=== PATIENT | female | born 1985 | race Caucasian/White ===

== ENCOUNTER → 2018-08-22 17:12 | Outpatient (CLI) | payer OTHER, MEDICAID, SELFPAY ==
--- NOTE | 2018-08-22 | DI.RAD.S_ITS ---
PROCEDURE: XR FOOT LT MIN 3V INDICATIONS: BRUISING, SWELLING S/P FALL TECHNIQUE: 3 views of the foot were acquired. COMPARISON: None. FINDINGS: Bones: No fractures or dislocations. No suspicious bony lesions. Soft tissues: No tibiotalar joint effusion. Achilles tendon appears normal. There is mild dorsal soft tissue swelling. IMPRESSION: No acute radiographic findings. If pain persists, followup imaging in 5-7 days is recommended to exclude occult fracture. Dictated by: Joann Hernandez M.D. on 08/23/2018 at 9:21 Approved by: Joann Hernandez M.D. on 08/23/2018 at 9:22
--- NOTE | 2018-08-22 | DI.RAD.S_ITS ---
PROCEDURE: XR KNEE LT 3V INDICATIONS: BRUISING, SWELLING S/P FALL TECHNIQUE: 3 views of the knee were acquired. COMPARISON: None. FINDINGS: Bones: No fractures or dislocations. No suspicious bony lesions. Soft tissues: No joint effusion. No suspicious soft tissue calcifications. IMPRESSION: No acute radiographic findings. If pain persists, followup imaging in 5-7 days is recommended to exclude occult fracture. Dictated by: Joann Hernandez M.D. on 08/23/2018 at 9:24 Approved by: Joann Hernandez M.D. on 08/23/2018 at 9:24
--- NOTE | 2018-08-22 | DI.RAD.S_ITS ---
PROCEDURE: XR KNEE RT 3V INDICATIONS: BRUISING, SWELLING S/P FALL TECHNIQUE: 3 views of the knee were acquired. COMPARISON: None. FINDINGS: Bones: No fractures or dislocations. No suspicious bony lesions. Soft tissues: No joint effusion. No suspicious soft tissue calcifications. IMPRESSION: No acute radiographic findings. If pain persists, followup imaging in 5-7 days is recommended to exclude occult fracture. Dictated by: Joann Hernandez M.D. on 08/23/2018 at 9:24 Approved by: Joann Hernandez M.D. on 08/23/2018 at 9:25
--- NOTE | 2018-08-22 | DI.RAD.S_ITS ---
PROCEDURE: XR FOOT RT MIN 3V INDICATIONS: BRUISING, SWELLING S/P FALL TECHNIQUE: 3 views of the foot were acquired. COMPARISON: None. FINDINGS: Bones: No fractures or dislocations. No suspicious bony lesions. There is a healed right fifth metacarpal fracture. Soft tissues: No tibiotalar joint effusion. Achilles tendon appears normal. IMPRESSION: No acute radiographic findings. If pain persists, followup imaging in 5-7 days is recommended to exclude occult fracture. Dictated by: Joann Hernandez M.D. on 08/23/2018 at 9:22 Approved by: Joann Hernandez M.D. on 08/23/2018 at 9:23
--- NOTE | 2018-08-22 | DI.RAD.S_ITS ---
PROCEDURE: XR HAND LT MIN 3V INDICATIONS: BRUISING, SWELLING S/P FALL TECHNIQUE: 3 views of the hand(s) acquired. COMPARISON: None. FINDINGS: Bones: No fractures or dislocations. Carpal bones are normally aligned. A small cystic lucency is present within the distal third metacarpal with a defined sclerotic margin suggesting a small bone cyst. Soft tissues: No suspicious soft tissue calcifications. IMPRESSION: No acute radiographic findings. If pain persists, followup imaging in 5-7 days is recommended to exclude occult fracture. Dictated by: Joann Hernandez M.D. on 08/23/2018 at 9:23 Approved by: Joann Hernandez M.D. on 08/23/2018 at 9:24
--- NOTE | 2018-08-22 | DI.RAD.S_ITS ---
PROCEDURE: XR TIBIA FUBULA RT 2V INDICATIONS: BRUISING SWELLING S/P FALL TECHNIQUE: 2 views of the tibia and fibula were acquired. COMPARISON: None. FINDINGS: Bones: No fractures or dislocations. No suspicious bony lesions. Soft tissues: No suspicious soft tissue calcifications or masses. IMPRESSION: No acute radiographic findings. If pain persists, followup imaging in 5-7 days is recommended to exclude occult fracture. Dictated by: Joann Hernandez M.D. on 08/23/2018 at 9:13 Approved by: Joann Hernandez M.D. on 08/23/2018 at 9:21
== END ==
PROVIDERS: Visit Provider Nurse Practitioner Family
DX: S80.11XA Contusion of right lower leg, initial encounter (principal); S60.222A Contusion of left hand, initial encounter; S90.32XA Contusion of left foot, initial encounter; S90.31XA Contusion of right foot, initial encounter; S80.02XA Contusion of left knee, initial encounter; W19.XXXA Unspecified fall, initial encounter; R60.9 Edema, unspecified
CPT/HCPCS: 73130; 73562; 73590; 73630

== ENCOUNTER → 2018-10-25 06:43 | Outpatient (CLI) | payer OTHER, SELFPAY ==
--- NOTE | 2018-10-25 | DI.MRI.S_ITS ---
PROCEDURE: MR KNEE RT WO CON INDICATIONS: Right knee pain an instability TECHNIQUE: Noncontrast sagittal PD fast spin echo and T2 fast spin echo with fat saturation, sagittal 3-D FLASH with fat saturation; coronal T1 spin echo and PD fast spin echo with fat saturation, and axial PD fast spin echo with fat saturation through the knee. COMPARISON: None. FINDINGS: Image quality: Excellent. Menisci: There is no evidence of focal medial meniscal tear. Signal abnormality is seen in anterior horn of lateral meniscus extending to inferior articulating surface suggestive of focal oblique tear. The meniscal root ligaments appear intact. Cruciate ligaments: There is nonvisualization of normal anterior cruciate ligament fibers traversing its expected course suggestive of age indeterminate ACL rupture. The posterior cruciate ligament is intact. Medial structures: The medial collateral ligament appears intact. The posterior oblique ligament, semimembranosus tendon insertions, oblique popliteal ligament, and meniscocapsular junction appear intact. Visualized portions of the pes anserinus tendons appear normal. No abnormal bursal fluid. Lateral structures: The lateral collateral ligament, long and short heads of the biceps femoris tendon appear intact. The popliteus tendon appears normal; the popliteofibular ligament appears intact. The posterosuperior and anteroinferior popliteomeniscal fascicles appear intact. The arcuate and fabellofibular ligaments appear intact, on either side of the lateral inferior geniculate artery. Iliotibial band appears normal. Anterior structures: The quadriceps and patellar tendons appear intact. Patellar alignment is normal. No femoral trochlear dysplasia or ventral trochlear prominence. No edema in the infrapatellar fat pad. Bones and cartilage: No bone marrow contusions or fractures. The cartilage of the medial and lateral femorotibial compartments, as well as the patellofemoral compartment, appears normal in thickness. Joint space: There is trace amount of joint fluid, no gross loose body.. No Galeas's cyst. Normal appearing synovial plicae are incidentally noted. IMPRESSION: 1. Suggestion of focal oblique tear involving anterior horn of lateral meniscus extending to inferior articulating surface. No evidence of focal medial meniscal tear. 2. Age-indeterminate and ACL rupture. PCL is intact. 3. No marrow edema. No fracture or dislocation. Trace amount of joint effusion. Dictated by: Jas Giang M.D. on 10/25/2018 at 8:34 Approved by: Jas Giang M.D. on 10/25/2018 at 8:39
--- NOTE | 2018-10-25 | DI.MRI.S_ITS ---
PROCEDURE: MR KNEE LT WO CON INDICATIONS: LEFT KNEE PAIN POST FALL TECHNIQUE: Noncontrast sagittal PD fast spin echo and T2 fast spin echo with fat saturation, sagittal 3-D FLASH with fat saturation; coronal T1 spin echo and PD fast spin echo with fat saturation, and axial PD fast spin echo with fat saturation through the knee. COMPARISON: Located Within [facility], MR, MR KNEE RT WO CON, 10/25/2018, 7:03. FINDINGS: Image quality: Excellent. Menisci: The medial and lateral menisci demonstrate normal morphology and internal signal. The meniscal root ligaments appear intact. Cruciate ligaments: The anterior and posterior cruciate ligaments appear intact. Medial structures: The medial collateral ligament appears intact. The posterior oblique ligament, semimembranosus tendon insertions, oblique popliteal ligament, and meniscocapsular junction appear intact. Visualized portions of the pes anserinus tendons appear normal. No abnormal bursal fluid. Lateral structures: The lateral collateral ligament, long and short heads of the biceps femoris tendon appear intact. The popliteus tendon appears normal; the popliteofibular ligament appears intact. The posterosuperior and anteroinferior popliteomeniscal fascicles appear intact. The arcuate and fabellofibular ligaments appear intact, on either side of the lateral inferior geniculate artery. Iliotibial band appears normal. Anterior structures: The quadriceps and patellar tendons appear intact. Patellar alignment is normal. No femoral trochlear dysplasia or ventral trochlear prominence. No edema in the infrapatellar fat pad. Bones and cartilage: No bone marrow contusions or fractures. The cartilage of the medial and lateral femorotibial compartments, as well as the patellofemoral compartment, appears normal in thickness. Joint space: There is physiologic knee joint fluid. No Galeas's cyst. Normal appearing synovial plicae are incidentally noted. IMPRESSION: Cruciate ligaments are intact. No evidence of focal meniscal tear. No evidence of internal derangement. Dictated by: Jas Giang M.D. on 10/25/2018 at 8:39 Approved by: Jas Giang M.D. on 10/25/2018 at 8:40
== END ==
PROVIDERS: PCP Nurse Practitioner Family; Visit Provider Internal Medicine
DX: M25.561 Pain in right knee (principal); M25.562 Pain in left knee
CPT/HCPCS: 73721

== ENCOUNTER → 2018-11-08 07:30 | Outpatient (CLI) | payer OTHER, MEDICAID, SELFPAY ==
--- NOTE | 2018-11-08 | DI.MG.S_ITS ---
BILATERAL DIGITAL SCREENING MAMMOGRAM 3D/2D WITH CAD: 11/08/2018 CLINICAL: Baseline exam. Family history of breast cancer. No prior exams were available for comparison. The tissue of both breasts is heterogeneously dense. This may lower the sensitivity of mammography. Current study was also evaluated with a Computer Aided Detection (CAD) system. No significant masses, calcifications, or other findings are seen in either breast. IMPRESSION: NEGATIVE There is no mammographic evidence of malignancy. A 1 year screening mammogram is recommended. This exam was interpreted at Station ID: [id number]. NOTE: For mammograms, a report in lay terms will be sent to the patient. Approximately 15% of breast malignancies will not be visualized mammographically. In the management of a palpable breast mass, a negative mammogram must not discourage biopsy of a clinically suspicious lesion. Electronically Signed By: Joann mendosa/elida:11/08/2018 08:50:43 copy to: [facility] letter sent: Normal Exam ACR BI-RADS Category 1: Negative 3341F
== END ==
PROVIDERS: PCP Nurse Practitioner Family; Visit Provider Nurse Practitioner Family
DX: Z12.31 Encounter for screening mammogram for malignant neoplasm of breast (principal); Z80.3 Family history of malignant neoplasm of breast
CPT/HCPCS: 77063; 77067

== ENCOUNTER 2019-03-19 10:51 | Day surgery (SDC) | payer OTHER, MEDICAID, SELFPAY ==
[2019-03-06 07:25] VITALS: BMI 38.5
[2019-03-19] VITALS (16 sets, daily range): BP systolic 103–145; BP diastolic 69–96; PULSE 80–106; RESP 11–16; TEMP 36.1–37.2; O2SAT 91–99; BMI 37.6
[2019-03-19] MEDS: LACTATED RINGERS 1,000 ML 42 ML IV ×2 (11:30→16:00)
--- NOTE | 2019-03-19 11:55 | PM.PREOP ---
Pre-operative Note Interval Note History & Physical reviewed/Exam performed by Physician: Yes Changes to H&P: No
[2019-03-19] MEDS: MIDAZOLAM 2 MG/2 ML VIAL IV (12:33)
[2019-03-19] MEDS: CEFAZOLIN 2 GM/100 ML FROZ.PIGGY IV (13:00)
--- NOTE | 2019-03-19 13:00 | SUR.PREOP ---
Block start time 1233 . Monitoring initiated and maintained throughout procedure. Oxygen and medications given per anesthesiologist instructions. Patient remained stable throughout procedure, no adverse reactions noted. Block end time 1244.
--- NOTE | 2019-03-19 13:14 | PM.PROC.1 ---
Procedures Date/Time Date of procedure: 03/19/19 Time of procedure: 13:00 Nerve Block Time out performed: Yes Local anesthetic used: lidocaine 1% (w/ epi 5mL + 15mL 0.5pivacaine) Location of anesthetic used: femoral nerve Amount of anesthesia used (mL): 20 Nerve blocks: femoral Procedure successful: Yes Patient tolerated procedure: well Complications: none Additional comments: Femoral Nerve block for post operative pain management. R/B discussed. Site marked. Consent verified/signed. Standard ASA monitors. NC O2. Chloroprep. Sterile technique. Femoral A/V/N identified at inguinal crease with US. Lidocaine skin wheal. 100mm x 21g Pajunk needle advanced with in-plane US guidance. Negative aspiration. LA injected lateral to femoral artery. Negative aspiration throughout. No pain, no paresthesia with injection. VSS. Tolerated well. To OR.
--- NOTE | 2019-03-19 13:23 | P.PCN_ITS ---
Procedures Date/Time Date of procedure: 03/19/19 Time of procedure: 13:00 Nerve Block Time out performed: Yes Local anesthetic used: lidocaine 1% (w/ epi 5mL + 15mL 0.5opivacaine) Location of anesthetic used: femoral nerve Amount of anesthesia used (mL): 20 Nerve blocks: femoral Procedure successful: Yes Patient tolerated procedure: well Complications: none Additional comments: Femoral Nerve block for post operative pain management. R/B discussed. Site marked. Consent verified/signed. Standard ASA monitors. NC O2. Chloroprep. Sterile technique. Femoral A/V/N identified at inguinal crease with US. Lidocaine skin wheal. 100mm x 21g Pajunk needle advanced with in-plane US guidance. Negative aspiration. LA injected lateral to femoral artery. Negative aspiration throughout. No pain, no paresthesia with injection. VSS. Tolerated well. To OR.
--- NOTE | 2019-03-19 13:57 | SUR.OPER ---
Supine on padded OR bed, head on pillow, arms secured on padded arm boards at <90 degrees abduction, knees at break of table to allow for table to drop down, operative leg under control of surgeon, lateral stress post at tourniquet, safety belt at waist.
[2019-03-19] MEDS: BUPIVACAINE 0.5% (PF) VIAL 30 ML INJ (14:03)
[2019-03-19] MEDS: MORPHINE 4 MG/ML INJ INJ (14:51)
[2019-03-19] MEDS: fentaNYL 100 MCG/2 ML INJ IV ×3 (15:23→16:17)
--- NOTE | 2019-03-19 15:24 | P.OP_ITS ---
Operative Date/Time/Diagnoses Date of procedure: 03/19/19 Time of procedure: 15:00 Pre-op diagnosis: Right knee anterior cruciate ligament rupture Post-op diagnosis: same Procedure & Clinicians Procedure: Right knee anterior cruciate ligament reconstruction with hamstring autograft Same procedure as scheduled: Yes Indications: The patient is a 34-year-old active woman who suffered an ACL rupture during athletics. She would like to return to her athletics and has decided to undergo an ACL reconstruction to allow that to happen. The risks benefits and alternatives were discussed with her at length. Risks discussed included but were not limited to: Graft rerupture, need for revision, inability to relieve symptoms, nerve damage, infection, deep venous thrombosis, pulmonary embolism, stroke, myocardial infarction, permanent paralysis and . Surgeon: Joshua Black Screen Operator: Annelise Lopez Click Yes if Unassisted: No Anesthesia Type: General, Peripheral nerve block and Local Operative Notes Findings: 1. Normal suprapatellar pouch 2. Normal patellofemoral joint 3. Normal medial and lateral gutters 4. Medial compartment with intact meniscus and cartilage. 5. Intercondylar notch notable for complete rupture of the ACL with no attachment to the lateral wall of the notch. The PCL appeared intact once the ACL had been debrided. 6. Lateral compartment notable for intact meniscus and femoral cartilage. There was a small area roughly 5 mm in diameter at the posterior aspect of the tibial plateau near the posterior horn of the meniscus which appeared to be grade 4 probably from the initial subluxation event with ACL rupture 7. Normal posterolateral compartment 8. Normal posterior medial compartment 9. Exam under anesthesia notable for full range of motion, grade 2 Onofre's and grade 3 pivot shift. The remainder of the ligament exam was stable. Closure Type: primary Specimen(s): none sent Prosthetic devices, grafts, tissues, transplants, or devices: Arthrex Tightrope femoral fixation, Mitek Intrafix tibal sheath and 7-9 x 30 mm screw. Applied: implant(s) Estimated Blood Loss (mL): 15 Blood products transfused: none Tourniquet time (min): 70 Procedure in detail: The patient was seen in the preoperative area where she identified the right knee as the operative site and this was marked with my initials. She received preoperative antibiotics and underwent a peripheral nerve block. She was then taken to the operating room and placed on the operating room table in a supine position where she underwent the induction of a general anesthetic. A real time analyst-out was performed. A tourniquet was placed about her proximal right thigh and the right leg was prepared from the toes to the tourniquet with ChloraPrep in the usual fashion drape through sterile drapes. A superior medial portal was created for the pump cannula and a lateral portal created for the arthroscope. Diagnostic arthroscopy ensued with the result given above. A medial portal was created for the probe and other tools. After confirming the diagnosis arthroscopically we withdrew the arthroscopic equipment. The leg was elevated and exsanguinated with an Esmarch bandage and tourniquet inflated to 250 mm of mercury. An approximately 1 inch incision was created over the insertion of the gracilis and semi tendinosis and these tendons were harvested in the standard fashion using a closed ended tendon harvester. These were taken to the back table for preparation into a graft by my clerical dentist assistant. The arthroscope was returned to the knee and a shaver placed to remove the ACL remnant. The arthroscope was then transferred to the medial portal and the femoral guide placed to the lateral portal and the central portion of the ACL footprint on the femur. An 8 mm Flipcutter drill was then used to create the femoral socket. The traction suture was placed through the socket and brought out through the lateral portal. The tibial tunnel was then drilled in the center of the tibial insertion of the ACL. This also was an 8 mm tunnel drilled over guide pin. The traction suture was then pulled out through the tibia and used to deliver the prepared graft into the femoral socket. The femoral fixation button was deployed and confirmed as being well fixed by traction on the graft. The ?tight rope? mechanism on the fixation device was then used to pull the graft into the socket. Once again traction was used to confirm good fixation. The spring skill was then used to tension the graft with 20 cycles of flexion extension at 20 lb tension. The graft was then fixed with 15 lb of tension on the graft placing the sheath and screw in the tibial tunnel. The Onofre was reduced to grade 0 as a result. We confirmed the graft was in good position arthroscopically and also confirmed there was no impingement. All arthroscopic equipment was then removed once again. The tourniquet was deflated at a total tourniquet time of 70 minutes. The graft harvest wound was closed with interrupted 3 O Vicryl subcutaneous and 4 0 Monocryl for the subcuticular layer. The remainder of the portal incisions were closed with 4 0 Monocryl. Steri-Strips were applied to all wounds. The knee was injected with 20 mL 0.5% Marcaine for postoperative pain control. Dressings of sterile 4x4s, cast padding and an Collin wrap were applied and the patient was transported to the recovery room in good condition having tolerated the procedure well. Complications: none Condition: stable Disposition: PACU Plan for aftercare: The patient will be discharged later today. She will be be maintained on crutches until she is comfortable placing weight on the knee. She will initiate physical therapy and will be followed up in the office in 2 weeks.
[2019-03-19] MEDS: HYDROMORPHONE 2 MG INJ 0.5 MG IV ×4 (15:25→15:57)
[2019-03-19] MEDS: LORazepam 2 MG/ML INJ 0.25 MG IV (16:01)
[2019-03-19] MEDS: OXYCODONE/ACETAMINOPHEN 5/325 TABLET 1 TAB PO ×2 (16:04→16:39)
[2019-03-19] MEDS: hydrOXYzine pamoate 25 MG CAPSULE PO (16:05)
--- NOTE | 2019-03-19 16:20 | SUR.PHASEI ---
Charge Nurse, Mega called and spoke with Dr. Black regarding seeping on wound on right outer side of leg. Verbal order received from Dr. Black to apply an ABD and reinforce with elroy wrap. Mega completed this per Dr. Black order. Pt tolerated well.
== END 2019-03-19 18:30 | disposition home or self-care (01) ==
PROVIDERS: PCP Nurse Practitioner Family; Visit Provider Orthopaedic Surgery
PROC: (CPT 29870; principal; 2019-03-19 12:45)
DX: S83.511A Sprain of anterior cruciate ligament of right knee, initial encounter (principal); G89.18 Other acute postprocedural pain; W19.XXXA Unspecified fall, initial encounter; Z87.891 Personal history of nicotine dependence; Y93.79 Activity, other specified sports and athletics
CPT/HCPCS: 29888; 64447; J0330; J0690; J1100; J1170; J2060; J2250; J2270; J2405; J2704; J3010

== ENCOUNTER → 2020-03-22 08:44 | Outpatient (CLI) | payer OTHER, MEDICAID, SELFPAY ==
--- NOTE | 2020-03-22 | DI.MG.S_ITS ---
BILATERAL DIGITAL SCREENING MAMMOGRAM 3D/2D WITH CAD: 03/22/2020 CLINICAL: Routine screening. Comparison is made to exam dated: 11/08/2018 [facility]. There are scattered fibroglandular elements in both breasts. Current study was also evaluated with a Computer Aided Detection (CAD) system. No significant masses, calcifications, or other findings are seen in either breast. There has been no significant interval change. IMPRESSION: NEGATIVE There is no mammographic evidence of malignancy. A 1 year screening mammogram is recommended. This exam was interpreted at Station ID: [id number]. NOTE: For mammograms, a report in lay terms will be sent to the patient. Approximately 15% of breast malignancies will not be visualized mammographically. In the management of a palpable breast mass, a negative mammogram must not discourage biopsy of a clinically suspicious lesion. Electronically Signed By: Yousif siddiqui/elida:03/24/2020 07:51:57 letter sent: Normal Exam ACR BI-RADS Category 1: Negative 3341F
== END ==
PROVIDERS: PCP Nurse Practitioner Family; Referring Provider Nurse Practitioner Family; Visit Provider Nurse Practitioner Family
DX: Z12.31 Encounter for screening mammogram for malignant neoplasm of breast (principal)
CPT/HCPCS: 77063; 77067

== ENCOUNTER → 2020-08-28 13:53 | Outpatient (CLI) | payer OTHER, MEDICAID, SELFPAY ==
[2020-08-28 14:33] LABS: Alanine Aminotransferase 18 IU/L (<35); Albumin Globulin Ratio 1.5 (1.0-2.8); Alkaline Phosphatase 82 U/L (38-126); Aspartate Aminotransferase 24 IU/L (14-36); BUN Creatinine Ratio 21.2 (6-22); Bilirubin Total 0.3 mg/dL (0.2-1.3); Blood Urea Nitrogen 14 mg/dL (7-17); Calcium 9.2 mg/dL (8.4-10.2); Carbon Dioxide 29 mmol/L (22-32); Chloride 104 mmol/L (98-107); Estimated Glomerular Filt Rate > 60.0 mL/min (>60); Globulin 2.6 g/dL (1.7-4.1); Glucose 102 mg/dL (70-100); HEMOLYSIS < 15 (0-50); Potassium 3.9 mmol/L (3.4-5.1); Sodium 137 mmol/L (137-145); Total Protein 6.6 g/dL (6.3-8.2)
[2020-08-28 14:45] LABS: Add Manual Diff / Slide Review NO; Basophils Absolute Auto 100 /uL (0-100); Basophils Percent Auto 0.7 % (0-2); Eosinophils Absolute Auto 400 /uL (0-450); Eosinophils Percent Auto 5.2 % (2-4); Hematocrit 42.5 % (36-46); Hemoglobin 14.3 g/dL (12.0-16.0); Lymphocytes Absolute Auto 2200 /uL (1100-4500); Lymphocytes Percent Auto 26.3 % (25-40); Mean Corpuscular HGB Conc 33.6 % (30-36); Mean Corpuscular Volume 86.2 fL (80-100); Monocytes Absolute Auto 600 /uL (0-900); Monocytes Percent Auto 7.1 % (3-14); Neutrophils Absolute Auto 5200 /uL (1500-7000); Neutrophils Percent Auto 60.7 % (50-75); Platelet Count 286 X10^3/uL (150-400); Red Blood Cell Count 4.93 X10^6/uL (4.0-5.2); Red Cell Distribution Width 12.9 % (11.6-14.8); White Blood Cell Count 8.5 X10^3/uL (4.5-11.0)
[2020-08-28 14:56] LABS: Free T4, Direct Thyroxine 1.03 ng/dL (0.78-2.19)
[2020-08-28 15:11] LABS: Thyroid Stimulating Hormone 2.26 uIU/mL (0.47-4.68)
[2020-08-28 15:22] LABS: Vitamin B12 949 pg/mL (239-931)
[2020-08-28 17:59] LABS: Vitamin D 25 Hydroxy (D3) 39.3 ng/mL (30.0-100.0)
== END ==
PROVIDERS: PCP Registered Nurse; Referring Provider Registered Nurse; Visit Provider Registered Nurse
DX: R53.83 Other fatigue (principal); E55.9 Vitamin D deficiency, unspecified; E53.8 Deficiency of other specified B group vitamins
CPT/HCPCS: 36415; 80053; 82306; 82607; 84439; 84443; 85025

== ENCOUNTER 2020-10-06 20:26 | Emergency (ER) | payer OTHER, MEDICAID, SELFPAY ==
[2020-10-06 20:39] VITALS: BP 142/86; PULSE 80; RESP 16; TEMP 36.8; O2SAT 99
--- NOTE | 2020-10-06 21:57 | PC.NURSE ---
patient presents to the ED with a migraine. She states that she has had a headache since . She recently was given a new medication for recovery for migraines but her insurance has not authorized it yet. She say this mirgraine is like other ones.
[2020-10-06] MEDS: SODIUM CHLORIDE 0.9% 1,000 ML 1000 ML IV (22:23)
[2020-10-06] MEDS: PROCHLORPERAZINE 10 MG/2 ML VIAL IV (22:37)
[2020-10-06 22:54] VITALS: BP 126/72; PULSE 81; RESP 12; O2SAT 96
[2020-10-06 22:55] VITALS: PULSE 85; O2SAT 98
[2020-10-06 23:00] VITALS: PULSE 87; O2SAT 98
--- NOTE | 2020-10-06 23:53 | ED.HA ---
HPI - Headache General Chief Complaint: Headache Stated Complaint: Migraine x 5 days Time Seen by Provider: 10/06/20 22:34 Source: patient and family (girlfriend) Mode of arrival: Ambulatory Limitations: no limitations History of Present Illness HPI Narrative: This is a 35-year-old female comes to the emergency department with complaint of migraine. Patient states she has had migraines for 15 years. The become progressively worse and more frequent. She actually saw her neurologist several days ago. She started having symptoms on Tuesday significantly her to have migraine on and has continued since. She was started in mid tripped clean by her neurologist. She has been taking that daily. She has not been able to fill her new rescue medication. Patient states she does get dizzy or have some mild vertigo symptoms. This is not new. Her pattern is typical for herself. She denies fevers. She denies vision changes other than some mild blurring which is also typical. She has had some nausea and vomiting. She denies any numbness, tingling or weakness. She denies any other neurologic symptoms. Patient states she takes medication for GERD. Related Data Home Medications Medication Instructions Recorded Confirmed albuterol 90 mcg/actuation aerosol 90 mcg INHALATION DAILY PRN 08/11/20 08/11/20 inhaler amitriptyline 10 mg PO DAILY 10/06/20 10/06/20 famotidine 20 mg PO BID 10/06/20 10/06/20 montelukast 10 mg PO DAILY 10/06/20 10/06/20 ondansetron 4 mg PO DAILY 10/06/20 10/06/20 Previous Rx's Medication Instructions Recorded topiramate 25 mg tablet 25 mg PO DAILY #60 tab 08/29/20 zolmitriptan 2.5 mg tablet See Rx Instructions PO .COMPLEX 09/01/20 #120 tab Allergies Allergy/AdvReac Type Severity Reaction Status Date / Time sulfamethoxazole Allergy Verified 10/06/20 22:24 [From ] trimethoprim [From ] Allergy Verified 10/06/20 22:24 Review of Systems Review of Systems ROS Unobtainable: All systems reviewed & are unremarkable except as noted in HPI and below Patient History Medical History Migraines Torn ACL Surgical History History of placement of ear tubes History of repair of ACL History of tonsillectomy [place] teeth extracted Social History household members: significant other and family Smoking Status: Never smoker alcohol intake: current Smoking Status: Never smoker alcohol intake frequency: other Substance Use Type: does not use Exam Narrative Exam Narrative: GEN: well nourished, well appearing female, alert and oriented x 3, patient appears to be in mild distress. HEENT: Atraumatic, pupils are equal round reactive to light, extraocular movements are intact, positive for photophobia, nares are clear, TMs are clear with no fluid, there is no conjunctival pallor. Throat is clear without any exudates, erythema, tonsillar enlargement or uvular deviation HEART: Regular rate and rhythm without murmur, clicks, rubs. LUNGS:Lungs clear to auscultation, no wheezes, rales, crackles, chest moves symmetrically ABD:bowel sounds normal, soft, non-tender, no guarding, rebound, rigidity, no masses noted, no hepatosplenomegaly :No CVA tenderness MSCL: Non-tender, no muscle atrophy, muscles strength 5/5 upper and lower extremities, full range of motion, normal gait NEURO:CN 2-12 intact, sensation normal, reflexes 2/4 upper and lower extremities. finger nose finger test normal, heel deutsch test normal SKIN: No rash, erythema or other changes. Initial Vital Signs Initial Vital Signs: Vital Signs Temperature 98.2 F 10/06/20 20:39 Pulse Rate 80 10/06/20 20:39 Respiratory Rate 16 10/06/20 20:39 Blood Pressure 142/86 H 10/06/20 20:39 Pulse Oximetry 99 10/06/20 20:39 Scores GCS [place] coma scale eye opening: Spontaneous Raffi coma scale verbal response: Orientated [place] coma scale motor response: Obey commands [place] coma scale total score: 15 Course Orders Ordered: Discontinued Medications Dexamethasone (Dexamethasone 10 Mg/Ml Vial) 10 mg IV NOW ONE Stop: 10/07/20 00:12 Last Admin: 10/07/20 00:25 Dose: 10 mg Documented by: LURDES Sodium Chloride (Normal Saline 0.9%) 1,000 mls @ 1,000 mls/hr IV BOLUS ONE Stop: 10/06/20 23:21 Last Infusion: 10/06/20 23:35 Dose: 0 mls/hr Documented by: Admin: 10/06/20 22:23 Dose: 1,000 mls/hr Documented by: ROBERTO Ketorolac Tromethamine (Ketorolac 60 Mg/2 Ml Vial) 30 mg IV NOW ONE Stop: 10/07/20 00:12 Last Admin: 10/07/20 00:45 Dose: Not Given Documented by: LURDES Morphine Sulfate (Morphine 4 Mg/Ml Inj) 4 mg IV NOW ONE Stop: 10/07/20 00:40 Last Admin: 10/07/20 00:45 Dose: 4 mg Documented by: LURDES Prochlorperazine (Prochlorperazine 10 Mg/2 Ml Vial) 10 mg IV NOW ONE Stop: 10/06/20 22:35 Last Admin: 10/06/20 22:37 Dose: 10 mg Documented by: ROBERTO Vital Signs Vital signs: Vital Signs - 8 hr 10/06/20 22:54 10/06/20 22:55 10/06/20 23:00 Pulse Rate 81 85 87 Respiratory Rate 12 Blood Pressure 126/72 Pulse Oximetry 96 98 98 10/07/20 01:10 Pulse Rate 77 Respiratory Rate 16 Blood Pressure 109/61 Pulse Oximetry 99 MDM - Headache MDM Narrative Medical decision making narrative: 35-year-old female comes in with complaint of migraine for 5 days. Patient has started her new anti migraine medication but does not have a rescue medication they are waiting for prior authorization. Patient states Toradol it is not helpful she had Compazine and fluids here in the department decreasing her headache from a 10 to a 7. She had taken Benadryl 50 mg p.o. prior to arrival. She states Toradol is not typically helpful. She was given a dose of Decadron 4 mg of morphine with some improvement. Discharge Plan Departure Patient Disposition: Home Clinical Impression: Headache, migraine Instructions: DI for Migraine Activity Restrictions/Additional Instructions: Follow up with your neurologist, call to figure out your medication regimen. You can contact your primary care they may be able to help with prior authorization. Return the ER for fevers, passing out, rapidly worsening headaches, new vision changes, new neurologic changes such as weakness, difficulty with speech, inability to move her extremities, persistent vomiting or other new or concerning symptoms Prescriptions: No Action topiramate 25 mg tablet 25 mg PO DAILY Qty: 60 RF: 0 zolmitriptan [Zomig] 2.5 mg tablet See Rx Instructions PO .COMPLEX Qty: 120 RF: 0 albuterol 90 mcg/actuation aerosol 90 mcg inhalation DAILY PRNRF: 0 famotidine 20 mg tablet 20 mg PO BID RF: 0 amitriptyline 10 mg tablet 10 mg PO DAILY RF: 0 montelukast 10 mg tablet 10 mg PO DAILY RF: 0 ondansetron 4 mg tablet,disintegrating 4 mg PO DAILY RF: 0 Referrals: Pao Rosario ARNP [Primary Care Provider] -
[2020-10-07] MEDS: DEXAMETHASONE 10 MG/ML VIAL IV (00:25)
[2020-10-07] MEDS: MORPHINE 4 MG/ML INJ IV (00:45)
[2020-10-07 01:10] VITALS: BP 109/61; PULSE 77; RESP 16; O2SAT 99
== END 2020-10-07 01:10 | disposition home or self-care (01) ==
PROVIDERS: Emergency Provider Emergency Medicine; PCP Registered Nurse
DX: G43.909 Migraine, unspecified, not intractable, without status migrainosus (principal)
CPT/HCPCS: 96361; 96374; 96375; 99281; 99284; J0780; J1100; J1885; J2270

== ENCOUNTER 2020-12-12 15:38 | Emergency (ER) | payer OTHER, MEDICAID, SELFPAY ==
[2020-12-12] VITALS (7 sets, daily range): BP systolic 129–168; BP diastolic 74–96; PULSE 87–110; RESP 14–18; TEMP 36.8; O2SAT 92–99; BMI 36.8
[2020-12-12 16:50] LABS: COVID19 -Nasal RAPID Negative (Negative)
--- NOTE | 2020-12-12 18:05 | ED_ITS ---
HPI - Headache General Chief Complaint: Headache Stated Complaint: migraine, exposure to covid Time Seen by Provider: 12/12/20 17:53 Source: patient Mode of arrival: Ambulatory Limitations: no limitations History of Present Illness HPI Narrative: The patient has migraine headaches. She is experiencing frontal, retro-orbital head pain for about 3 days now. She is taking medications as prescribed. She has photophobia with the headache. She has had no relief with her medications. She has nausea, no emesis. She takes Singulair for allergies. She is a nonsmoker. She complains of frontal pressure. She has no ear pain, but her hearing is decreased. She thinks she has a sinus infection. She has no visual changes. She denies sore throat, or difficulty swelling. She has occasional, nonproductive cough. She has no dyspnea. Related Data Home Medications Medication Instructions Recorded Confirmed albuterol 90 mcg/actuation aerosol 90 mcg INHALATION DAILY PRN 08/11/20 08/11/20 inhaler amitriptyline 10 mg PO DAILY 10/06/20 10/06/20 famotidine 20 mg PO BID 10/06/20 10/06/20 montelukast 10 mg PO DAILY 10/06/20 10/06/20 ondansetron 4 mg PO DAILY 10/06/20 10/06/20 Previous Rx's Medication Instructions Recorded zolmitriptan 2.5 mg tablet See Rx Instructions PO .COMPLEX 09/01/20 #120 tab topiramate 25 mg tablet 25 mg PO DAILY #60 tab 11/25/20 amoxicillin 500 mg PO TID #30 tab 12/12/20 Allergies Allergy/AdvReac Type Severity Reaction Status Date / Time sulfamethoxazole Allergy Verified 12/12/20 15:44 [From ] trimethoprim [From ] Allergy Verified 12/12/20 15:44 Review of Systems Constitutional Constitutional: Denies chills, Denies fever(s), Reports headache(s) and Denies poor appetite Eyes Eyes: Denies change in vision Comments: Photophobia. ENT Ears, Nose, Mouth, and Throat: Denies dizziness, Reports headache(s), Denies mouth pain and Reports sinus pain Cardiovascular Cardiovascular: Reports chest pain, Denies irregular heart rhythm and Denies dyspnea Respiratory Respiratory: Reports cough and Denies dyspnea Gastrointestinal Gastrointestinal: Denies dyspepsia, Reports nausea and Denies vomiting Genitourinary Genitourinary: Denies dysuria Genitourinary: Denies dysuria Musculoskeletal Musculoskeletal: Denies back pain Integumentary/Breasts Skin/Breast: Denies rash Neurologic Neurologic: Denies dizziness and Reports headache(s) Patient History Medical History (Updated 12/12/20 @ 19:25 by Aakash Landaverde MD) Allergies Migraines Torn ACL Surgical History History of placement of ear tubes History of repair of ACL History of tonsillectomy [place] teeth extracted Social History household members: significant other and family Smoking Status: Never smoker alcohol intake: current Smoking Status: Never smoker alcohol intake frequency: other Substance Use Type: does not use Exam Initial Vital Signs Initial Vital Signs: Vital Signs Temperature 98.3 F 12/12/20 15:44 Pulse Rate 110 H 12/12/20 15:44 Respiratory Rate 18 12/12/20 15:44 Blood Pressure 141/96 H 12/12/20 15:44 Pulse Oximetry 97 12/12/20 15:44 Const General: cooperative and well developed Nutritional Appearance: well nourished [facility] Head: normal to inspection, normocephalic, atraumatic and other (Bilateral ethmoid and maxillary sinus tenderness.) Ears: TM abnormal (Clear fluid behind both TMs. No erythema to the TM.) Nose: external nose normal Mouth: oral mucosae normal Throat: posterior oropharynx normal Eyes General: appearance normal, both eyes and all related structures Eyelids: eyelids normal Conjunctivae: conjunctivae normal Sclera: sclerae normal Pupils: PERRL EOM: EOM intact bilaterally Neck Neck: supple and No lymphadenopathy Resp Auscultation: clear to auscultation bilaterally Cardio Rate: regular rate Rhythm: regular rhythm Heart Sounds: S1 normal, S2 normal, no click, no gallops, no murmurs and no rubs Pulses: normal peripheral pulses GI Palpation: soft and No tender Auscultation: normal bowel sounds Back/Spine/Pelvis Back: No CVA tenderness Skin General: no rashes or lesions noted, No jaundice and No petechiae Neuro General: patient alert, patient oriented x3, gait normal and no focal motor deficits Speech: speech normal Extrem General: no pedal edema and no calf tenderness Course Course Course Narrative: The patient has received ketorolac, diphenhydramine, prochlorperazine. She is feeling better, but her headache is not totally resolved. She has tenderness in the ethmoid and maxillary sinuses. Of initiated treatment for sinusitis with amoxicillin. She is also advised to use Mucinex. She can continue regular migraine meds. I did give her a dispense a pack of Tramadol. Orders Ordered: Discontinued Medications Amoxicillin (Amoxicillin 250 Mg Capsule) 500 mg PO NOW ONE Stop: 12/12/20 19:23 Last Admin: 12/12/20 19:39 Dose: 500 mg Documented by: SÁNCHEZ Diphenhydramine HCl (Diphenhydramine 50 Mg/Ml Vial) 25 mg IV NOW ONE Stop: 12/12/20 17:54 Last Admin: 12/12/20 18:12 Dose: 25 mg Documented by: SHERRI Sodium Chloride (Normal Saline 0.9%) 1,000 mls @ 1,000 mls/hr IV BOLUS ONE Stop: 12/12/20 18:52 Last Infusion: 12/12/20 19:12 Dose: 0 mls/hr Documented by: Admin: 12/12/20 18:12 Dose: 1,000 mls/hr Documented by: SHERRI Ketorolac Tromethamine (Ketorolac 30 Mg/Ml Vial) 30 mg IV NOW ONE Stop: 12/12/20 17:54 Last Admin: 12/12/20 18:12 Dose: 30 mg Documented by: SHERRI Prochlorperazine (Prochlorperazine 10 Mg/2 Ml Vial) 10 mg IV NOW ONE Stop: 12/12/20 17:54 Last Admin: 12/12/20 18:12 Dose: 10 mg Documented by: SHERRI Tramadol HCl (Tramadol 50 Mg Prepack) 1 bottle MIS SEEINSTR ONE Stop: 12/12/20 19:23 Last Admin: 12/12/20 19:39 Dose: 1 bottle Documented by: SÁNCHEZ Vital Signs Vital signs: Vital Signs - 8 hr 12/12/20 17:30 12/12/20 18:26 12/12/20 18:28 Pulse Rate 87 89 95 H Respiratory Rate 16 17 Blood Pressure 168/81 H 162/74 H Pulse Oximetry 99 96 92 12/12/20 18:30 12/12/20 19:04 12/12/20 19:44 Pulse Rate 91 H 98 H 88 Respiratory Rate 14 Blood Pressure 129/74 Pulse Oximetry 96 96 98 MDM - Headache Lab Data Labs: Lab Results 12/12/20 Range/Units 15:45 SARS-CoV-2 (PCR) Negative (Negative) Discharge Plan Departure Patient Disposition: Home Clinical Impression: Headache, migraine Qualifiers: Migraine type: without aura Status migrainosus presence: with status migrainosus Intractability: not intractable Qualified Code(s): G43.001 - Migraine without aura, not intractable, with status migrainosus Acute pansinusitis Qualifiers: Recurrence: not specified as recurrent Qualified Code(s): J01.40 - Acute pansinusitis, unspecified Activity Restrictions/Additional Instructions: Continue your current migraine medications as prescribed. Tramadol 1 tablet every 6 hours as needed for ongoing headache management. Amoxicillin 3 times daily as prescribed for the sinus infection. The prescription has been electronically forwarded to the [facility] in [place]. Mucinex is available [id number]. This should help with relief of your sinus pressure. Followed package instructions. The usual doses 4 times daily as needed. Return to ER if symptoms escalate. Prescriptions: New amoxicillin 500 mg tablet 500 mg PO TID Qty: 30 RF: 0 No Action zolmitriptan [Zomig] 2.5 mg tablet See Rx Instructions PO .COMPLEX Qty: 120 RF: 0 topiramate 25 mg tablet 25 mg PO DAILY Qty: 60 RF: 0 albuterol 90 mcg/actuation aerosol 90 mcg inhalation DAILY PRNRF: 0 famotidine 20 mg tablet 20 mg PO BID RF: 0 amitriptyline 10 mg tablet 10 mg PO DAILY RF: 0 montelukast 10 mg tablet 10 mg PO DAILY RF: 0 ondansetron 4 mg tablet,disintegrating 4 mg PO DAILY RF: 0 Referrals: Pao Rosario ARNP [Primary Care Provider] -
[2020-12-12] MEDS: SODIUM CHLORIDE 0.9% 1,000 ML 1000 ML IV (18:12)
[2020-12-12] MEDS: KETOROLAC 30 MG/ML VIAL IV (18:12)
[2020-12-12] MEDS: diphenhydrAMINE 50 MG/ML VIAL 25 MG IV (18:12)
[2020-12-12] MEDS: PROCHLORPERAZINE 10 MG/2 ML VIAL IV (18:12)
[2020-12-12] MEDS: TRAMADOL 50 MG PREPACK 1 BOTTLE MISC (19:39)
[2020-12-12] MEDS: AMOXICILLIN 250 MG CAPSULE 500 MG PO (19:39)
== END 2020-12-12 19:44 | disposition home or self-care (01) ==
PROVIDERS: Emergency Medicine; Emergency Provider Emergency Medicine; PCP Registered Nurse
DX: G43.001 Migraine without aura, not intractable, with status migrainosus (principal); J01.40 Acute pansinusitis, unspecified; Z20.822 Contact with and (suspected) exposure to COVID-19
CPT/HCPCS: 87635; 96361; 96374; 96375; 99284; C9803; J0780; J1200; J1885

== ENCOUNTER 2020-12-30 19:30 | Emergency (ER) | payer OTHER, MEDICAID, SELFPAY ==
[2020-12-30 19:32] VITALS: BP 176/92; PULSE 121; RESP 20; TEMP 36.6; O2SAT 100
--- NOTE | 2020-12-30 19:38 | DI.RAD.S_ITS ---
PROCEDURE: XR KNEE LT 3V INDICATIONS: heard a pop unable to bear weight, injury while running TECHNIQUE: 3 views of the knee were acquired. COMPARISON: [facility], [place], XR KNEE RT 3V, 08/22/2018, 17:36. FINDINGS: Bones: No fractures or dislocations. No suspicious bony lesions. Soft tissues: No joint effusion. No suspicious soft tissue calcifications. IMPRESSION: No fracture. If the patient's pain or other symptoms persist, consider further evaluation with MRI Dictated by: Jayce Segura M.D. on 12/30/2020 at 20:11 Approved by: Jayce Segura M.D. on 12/30/2020 at 20:12
[2020-12-30 20:33] VITALS: BP 130/73; PULSE 86; RESP 17; O2SAT 99
--- NOTE | 2020-12-30 20:46 | ED_ITS ---
HPI - Extremity Injury (Lower) General Chief Complaint: Extremity Injury, Lower Stated Complaint: lt knee injury Time Seen by Provider: 12/30/20 20:40 Source: patient and family Mode of arrival: Wheelchair History of Present Illness HPI Narrative: Patient here with partner. Complains of left knee injury when tracing children tonight. [place] pop in the left medial knee. History right ACL repair surgery 2 years ago [address] Orth[address] Dr. Black here locally. No prior injury to left knee. No numbness tingling or weakness. Painful with attempt to bear weight or movement. Related Data Home Medications Medication Instructions Recorded Confirmed albuterol 90 mcg/actuation aerosol 90 mcg INHALATION DAILY PRN 08/11/20 08/11/20 inhaler amitriptyline 10 mg PO DAILY 10/06/20 10/06/20 famotidine 20 mg PO BID 10/06/20 10/06/20 montelukast 10 mg PO DAILY 10/06/20 10/06/20 ondansetron 4 mg PO DAILY 10/06/20 10/06/20 Previous Rx's Medication Instructions Recorded zolmitriptan 2.5 mg tablet See Rx Instructions PO .COMPLEX 09/01/20 #120 tab topiramate 25 mg tablet 25 mg PO DAILY #60 tab 11/25/20 amoxicillin 500 mg PO TID #30 tab 12/12/20 hydrocodone-acetaminophen 1 tab PO Q6H PRN #20 tab 12/30/20 ondansetron 4 mg PO Q8H PRN #10 tab 12/30/20 Allergies Allergy/AdvReac Type Severity Reaction Status Date / Time sulfamethoxazole Allergy Verified 12/12/20 15:44 [From ] trimethoprim [From ] Allergy Verified 12/12/20 15:44 Review of Systems Review of Systems Narrative: GENERAL: Denies chills, fatigue, malaise, fever, sweats. HEENT: Denies sinus pain, ear pain, sore throat RESPIRATORY: Denies dyspnea, cough CARDIOVASCULAR: Denies chest pain, palpitations GASTROINTESTINAL: Denies nausea, vomiting, abdominal pain : Denies dysuria, frequency, hematuria MUSCULOSKELETAL: Complains muscle or bony pain SKIN: Denies rash, skin lesions NEUROLOGIC: Denies weakness, numbness ROS Unobtainable: All systems reviewed & are unremarkable except as noted in HPI and below Patient History Medical History (Updated 12/30/20 @ 20:48 by Speedy Magallon MD) Allergies Migraines Torn ACL Surgical History History of placement of ear tubes History of repair of ACL History of tonsillectomy [place] teeth extracted Social History household members: significant other and family Smoking Status: Never smoker alcohol intake: current Smoking Status: Never smoker alcohol intake frequency: other Substance Use Type: does not use Exam Narrative Exam Narrative: GENERAL: in no distress, not toxic not dyspneic HEAD: Normocephalic. EYES: Pupils equal round ENT: Mucous membranes moist. NECK: Trachea midline. EXTREMITIES: No gross deformities. Examination left knee. Grossly symmetric to the right knee. Pants shoes and socks removed. Nontender hip and ankle and foot. Foot is warm soft and pink with strong pedal pulse with light touch intact to toes. Very limited range of motion at the left knee due to pain. There is no pain or laxity of the knee with anterior-posterior stress of left leg. Patient does have pain in the knee with attempts to mediolateral and rotational stress of the left leg NEURO: AOx4. SKIN: Warm and dry PSYCH: Not anxious, is cooperative Initial Vital Signs Initial Vital Signs: Vital Signs Temperature 97.9 F 12/30/20 19:32 Pulse Rate 121 H 12/30/20 19:32 Respiratory Rate 20 12/30/20 19:32 Blood Pressure 176/92 H 12/30/20 19:32 Pulse Oximetry 100 12/30/20 19:32 Procedures Orthopedic Splinting/Casting Left knee: Side: left Upper Extremity Injury Location: finger Lower Extremity Injury Location: knee Lower Extremity Immobilizer: knee immobilizer Other Orthopedic Equipment: crutches Post splinting neuro exam: intact Post splinting vascular exam: intact Placed by: Nursing Course Course Course Narrative: No new issues during course of stay. Orders Ordered: ED Orders 12/30/20 19:38 XR knee LT 3V Stat Discontinued Medications Hydrocodone Bitart/Acetaminophen (Hydrocodone/Acet 5/325 Prepack) 1 bottle MISC SEEINSTR ONE Stop: 12/30/20 20:51 Last Admin: 12/30/20 20:53 Dose: 1 bottle Documented by: SHERRI Hydromorphone HCl (Hydromorphone 1 Mg Inj) 1 mg IM NOW ONE Stop: 12/30/20 20:47 Last Admin: 12/30/20 20:52 Dose: 1 mg Documented by: SHERRI Ondansetron HCl (Ondansetron 4 Mg Odt) 4 mg SL NOW ONE Stop: 12/30/20 20:47 Last Admin: 12/30/20 20:52 Dose: 4 mg Documented by: SHERRI Reevaluation(s) Reevaluation #1: Patient already has orthopedics to follow-up with. For continuity of care. Patient has a courtesy bus driver. Understands follow-up for MRI with her orthopedist Vital Signs Vital signs: Vital Signs - 8 hr 12/30/20 19:32 12/30/20 20:33 Temperature 97.9 F Pulse Rate 121 H 86 Respiratory Rate 20 17 Blood Pressure 176/92 H 130/73 Pulse Oximetry 100 99 MDM - Extremity Injury (Lower) Differential Diagnosis Differential diagnosis: Likely acute internal derangement of knee and other (Knee sprain/strain/meniscus injury) Imaging Data Extremity x-ray #1: Radiologist's Impression: [address] [id number] ReportSigned Patient: Aicha Harris [facility]#: [id number]: 1985Acct:[id number]/Sex: 35 / FDate of Service: 12/30/20Loc: EDAccession Number: [id number] Procedure: XR knee LT 3V Ordering Provider: Speedy Magallon MD PROCEDURE: XR KNEE LT 3V INDICATIONS: heard a pop unable to bear weight, injury while running TECHNIQUE: 3 views of the knee were acquired. COMPARISON: [facility], , XR KNEE RT 3V, 08/22/2018, 17:36. FINDINGS: Bones: No fractures or dislocations. No suspicious bony lesions. Soft tissues: No joint effusion. No suspicious soft tissue calcifications. IMPRESSION: No fracture. If the patient's pain or other symptoms persist, consider further evaluation with MRI Dictated by: Jayce Segura M.D. on 12/30/2020 at 20:11 Approved by: Jayce Segura M.D. on 12/30/2020 at 20:12 [facility] Narrative Medical decision making narrative: Appropriate for discharge home. Neurovascularly intact. Pain controlled. Discharge Plan Departure Patient Disposition: Home Clinical Impression: Left knee sprain Qualifiers: Encounter type: initial encounter Involved ligament of knee: unspecified ligament Qualified Code(s): S83.92XA - Sprain of unspecified site of left knee, initial encounter Instructions: DI for Knee Sprain Activity Restrictions/Additional Instructions: No driving or operating machinery until seen by orthopedics. Call your orthopedic doctor tomorrow for office recheck within a week. Will need outpatient MRI of her left knee. Use crutches and knee immobilizer for walking and comfort. Return if worse if any questions or concerns Prescriptions: New hydrocodone-acetaminophen 5-325 mg tablet 1 tab PO Q6H PRN (Reason: pain) Qty: 20 RF: 0 ondansetron 4 mg tablet,disintegrating 4 mg PO Q8H PRN (Reason: nausea and vomiting) Qty: 10 RF: 0 No Action zolmitriptan [Zomig] 2.5 mg tablet See Rx Instructions PO .COMPLEX Qty: 120 RF: 0 topiramate 25 mg tablet 25 mg PO DAILY Qty: 60 RF: 0 albuterol 90 mcg/actuation aerosol 90 mcg inhalation DAILY PRNRF: 0 famotidine 20 mg tablet 20 mg PO BID RF: 0 amitriptyline 10 mg tablet 10 mg PO DAILY RF: 0 montelukast 10 mg tablet 10 mg PO DAILY RF: 0 ondansetron 4 mg tablet,disintegrating 4 mg PO DAILY RF: 0 amoxicillin 500 mg tablet 500 mg PO TID Qty: 30 RF: 0 Referrals: Pao Rosario ARNP [Primary Care Provider] - Joshua Black MD [Physician] -
[2020-12-30] MEDS: HYDROMORPHONE 1 MG INJ IM (20:52)
[2020-12-30] MEDS: ONDANSETRON 4 MG ODT SL (20:52)
[2020-12-30] MEDS: HYDROCODONE/ACET 5/325 PREPACK 1 BOTTLE MISC (20:53)
== END 2020-12-30 21:08 | disposition home or self-care (01) ==
PROVIDERS: Emergency Provider Emergency Medicine; PCP Registered Nurse
DX: S83.92XA Sprain of unspecified site of left knee, initial encounter (principal)
CPT/HCPCS: 29530; 73562; 96372; 99283; 99284; J1170

== ENCOUNTER 2021-01-01 13:06 | Emergency (ER) | payer OTHER, MEDICAID, SELFPAY ==
[2021-01-01 13:15] VITALS: BP 144/90; PULSE 95; RESP 15; TEMP 36.3; O2SAT 96; BMI 35.2
--- NOTE | 2021-01-01 14:02 | ED_ITS ---
HPI - Extremity Injury (Lower) General Chief Complaint: Extremity Injury, Lower Stated Complaint: Left Knee Injury, MCL and ACL Time Seen by Provider: 01/01/21 13:34 Source: patient Mode of arrival: Wheelchair Limitations: no limitations History of Present Illness HPI Narrative: Patient is a 35-year-old female who was seen here in the emergency department a couple days ago and was diagnosed with a probable soft ti ssue injury to the nephew need to include potential meniscal tear/ligamentous tear. She was given a knee immobilizer and crutches and pain medication. Was discharged home. States she has been taking the medication without any improvement. She does have an appointment with orthopedics but this is not for several days/weeks. She contacted the orthopedic department who told to come to the emergency department in order to obtain an MRI. She also describes tingling down her leg. Related Data Home Medications Medication Instructions Recorded Confirmed albuterol 90 mcg/actuation aerosol 90 mcg INHALATION DAILY PRN 08/11/20 08/11/20 inhaler amitriptyline 10 mg PO DAILY 10/06/20 10/06/20 famotidine 20 mg PO BID 10/06/20 10/06/20 montelukast 10 mg PO DAILY 10/06/20 10/06/20 ondansetron 4 mg PO DAILY 10/06/20 10/06/20 Previous Rx's Medication Instructions Recorded zolmitriptan 2.5 mg tablet See Rx Instructions PO .COMPLEX 09/01/20 #120 tab topiramate 25 mg tablet 25 mg PO DAILY #60 tab 11/25/20 amoxicillin 500 mg PO TID #30 tab 12/12/20 hydrocodone-acetaminophen 1 tab PO Q6H PRN #20 tab 12/30/20 ondansetron 4 mg PO Q8H PRN #10 tab 12/30/20 oxycodone-acetaminophen 1 tab PO Q4-6H PRN #14 tab 01/01/21 Allergies Allergy/AdvReac Type Severity Reaction Status Date / Time sulfamethoxazole Allergy Verified 01/01/21 13:23 [From ] trimethoprim [From ] Allergy Verified 01/01/21 13:23 Review of Systems Constitutional Constitutional: Denies fever(s) Musculoskeletal Musculoskeletal: Reports tingling Comments: Left knee pain Integumentary/Breasts Skin/Breast: Denies rash Neurologic Neurologic: Reports tingling Hematologic/Lymphatic On Anticoagulants: No Patient History Medical History Allergies Migraines Torn ACL Surgical History History of placement of ear tubes History of repair of ACL History of tonsillectomy [place] teeth extracted Social History household members: significant other and family Smoking Status: Never smoker alcohol intake: current Smoking Status: Never smoker alcohol intake frequency: other Substance Use Type: does not use Exam Initial Vital Signs Initial Vital Signs: Vital Signs Temperature 97.4 F L 01/01/21 13:15 Pulse Rate 95 H 01/01/21 13:15 Respiratory Rate 15 01/01/21 13:15 Blood Pressure 144/90 H 01/01/21 13:15 Pulse Oximetry 96 01/01/21 13:15 Const General: cooperative Limitations: mental status not altered HENLA Head: normal to inspection and normocephalic Cardio Pulses: dorsalis pedis present on the left Skin Lesions: no lesions Rashes: no rashes Neuro General: patient alert and patient awake Cognition: normal cognition Speech: speech normal Extrem Other: Left knee effusion. Limited evaluation secondary to patient's discomfort. Left ankles unremarkable. Psych Appearance: well kempt Course Orders Ordered: Discontinued Medications Hydromorphone HCl (Hydromorphone 1 Mg Inj) 1 mg IM NOW ONE Stop: 01/01/21 14:03 Last Admin: 01/01/21 14:33 Dose: 1 mg Documented by: [email or web address] Vital Signs Vital signs: Vital Signs - 8 hr 01/01/21 15:09 Pulse Rate 87 Blood Pressure 129/87 Pulse Oximetry 96 MDM - Extremity Injury (Lower) MDM Narrative Medical decision making narrative: Patient is neurovascularly intact. I suspect that the neurologic symptoms that she is getting in her left lower extremities related to the knee effusion around her left knee. Informed the patient and family then unfortunately we would be unable to obtain a MRI had to the emergency department. There is no emergent reason to obtain the MRI. I did have very limited exam of her left knee secondary to the discomfort. We did discuss her knee immobilizer. We did discuss other things that she could try to include knee braces. She has crutches. We will switch her from hydrocodone to oxycodone to see if this is not provide better pain support. She was instructed to contact her orthopedic doctor for follow-up. She expressed understanding agreement. Discharge Plan Departure Patient Disposition: Home Clinical Impression: Injury of knee, left Instructions: How to Use Crutches, How To Perform RICE (Rest, Ice, Compress, Elevate) Activity Restrictions/Additional Instructions: Who will make some adjustments to your pain medication to see if this does not improve your symptoms. There were no fractures on the x-ray so you can walk 1 your leg as tolerated although I know that that may be difficult right now. Until then use the crutches. Keep all of your scheduled medical appointments. Return to the emergency department for any new or worsening symptoms Prescriptions: New oxycodone-acetaminophen 5-325 mg tablet 1 tab PO Q4-6H PRN (Reason: pain) Qty: 14 RF: 0 No Action zolmitriptan [Zomig] 2.5 mg tablet See Rx Instructions PO .COMPLEX Qty: 120 RF: 0 topiramate 25 mg tablet 25 mg PO DAILY Qty: 60 RF: 0 albuterol 90 mcg/actuation aerosol 90 mcg inhalation DAILY PRNRF: 0 famotidine 20 mg tablet 20 mg PO BID RF: 0 amitriptyline 10 mg tablet 10 mg PO DAILY RF: 0 montelukast 10 mg tablet 10 mg PO DAILY RF: 0 ondansetron 4 mg tablet,disintegrating 4 mg PO DAILY RF: 0 amoxicillin 500 mg tablet 500 mg PO TID Qty: 30 RF: 0 hydrocodone-acetaminophen 5-325 mg tablet 1 tab PO Q6H PRN (Reason: pain) Qty: 20 RF: 0 ondansetron 4 mg tablet,disintegrating 4 mg PO Q8H PRN (Reason: nausea and vomiting) Qty: 10 RF: 0 Referrals: Pao Rosario ARNP [Primary Care Provider] -
[2021-01-01] MEDS: HYDROMORPHONE 1 MG INJ IM (14:33)
[2021-01-01 15:09] VITALS: BP 129/87; PULSE 87; O2SAT 96
== END 2021-01-01 15:09 | disposition home or self-care (01) ==
PROVIDERS: Emergency Provider Emergency Medicine; PCP Registered Nurse
DX: S89.92XA Unspecified injury of left lower leg, initial encounter (principal)
CPT/HCPCS: 96372; 99283; J1170

== ENCOUNTER 2021-01-02 10:44 | Emergency (ER) | payer OTHER, MEDICAID, SELFPAY ==
[2021-01-02 11:00] VITALS: BP 122/75; PULSE 107; RESP 18; TEMP 36.4; O2SAT 98
--- NOTE | 2021-01-02 11:37 | ED.LOWEXIN ---
HPI - Extremity Injury (Lower) General Chief Complaint: Extremity Injury, Lower Stated Complaint: rupture ACL tear/Dr. Coombs Time Seen by Provider: 01/02/21 11:21 Source: patient and family Mode of arrival: Wheelchair Limitations: no limitations History of Present Illness HPI Narrative: This is a 35-year-old female who had a injury to her left knee. Patient was running, planted her foot pivoted and felt a popping and immediate pain in her left knee with significant continued pain. She states pain has been increasing. She describes some numbness and tingling down into her foot particularly foot. She also describes some pain into the left hip as well. Patient has not appreciated any new swelling. She did have swelling immediately afterwards of the knee. Patient states she is not able to weight bear significantly uncomfortable. She was given a knee immobilizer which she has not been wearing because it increases her pain. Patient was having difficulty with pain control within her last night was given oxycodone, she states this made her itchy. She saw her primary care physician today who ordered as stat/urgent outpatient MRI for her knee. They also changed her medication back to hydrocodone but increase the dosage. I gave her a prescription for clonazepam for claustrophobia with her MRI is obtained. Patient has follow-up set up with Orthopedic surgery on January 14. Related Data Home Medications Medication Instructions Recorded Confirmed albuterol 90 mcg/actuation aerosol 90 mcg INHALATION DAILY PRN 08/11/20 01/02/21 inhaler amitriptyline 10 mg PO DAILY 10/06/20 01/02/21 famotidine 20 mg PO BID 10/06/20 01/02/21 montelukast 10 mg PO DAILY 10/06/20 01/02/21 ondansetron 4 mg PO DAILY 10/06/20 01/02/21 Previous Rx's Medication Instructions Recorded zolmitriptan 2.5 mg tablet See Rx Instructions PO .COMPLEX 09/01/20 #120 tab topiramate 25 mg tablet 25 mg PO DAILY #60 tab 11/25/20 amoxicillin 500 mg PO TID #30 tab 12/12/20 hydrocodone-acetaminophen 1 tab PO Q6H PRN #20 tab 12/30/20 ondansetron 4 mg PO Q8H PRN #10 tab 12/30/20 oxycodone-acetaminophen 1 tab PO Q4-6H PRN #14 tab 01/01/21 clonazepam 1 mg tablet 1 mg PO DAILY PRN #2 tab 01/02/21 hydrocodone 10 mg-acetaminophen 1 tab PO Q8H PRN #60 tab 01/02/21 325 mg tablet Allergies Allergy/AdvReac Type Severity Reaction Status Date / Time sulfamethoxazole Allergy Verified 01/02/21 10:19 [From ] trimethoprim [From ] Allergy Verified 01/02/21 10:19 Review of Systems Review of Systems ROS Unobtainable: All systems reviewed & are unremarkable except as noted in HPI and below Patient History Medical History Allergies Migraines Torn ACL Surgical History History of placement of ear tubes History of repair of ACL History of tonsillectomy [place] teeth extracted Social History household members: significant other and family Smoking Status: Never smoker alcohol intake: current Smoking Status: Never smoker alcohol intake frequency: other Substance Use Type: does not use Exam Narrative Exam Narrative: GENERAL: Alert and oriented x three, well-nourished female in moderate distress. HEENT: Head normocephalic, atraumatic, EOMI, pupils reactive, face symmetric, moist mucous membranes NECK: Supple, full range of motion CARDIOVASCULAR: Regular rate and rhythm without murmurs, rubs or gallops. RESPIRATORY: Breath sounds equal bilaterally, no wheezes rales or rhonchi. ABDOMEN: Soft, nontender. Normoactive bowel sounds all 4 quadrants. No guarding or rebound, rigidity, no mass EXTREMITIES: Decreased range of motion of the left knee. No clubbing or edema extremity noted. No ecchymosis. Neurovascularly intact. Patient has pain at left knee with light to moderate palpation. Patient does not have any bony tenderness of the hip., no bony tenderness of the ankle or foot but patient does have some discomfort with squeeze of the tibia. Patient has soft compartments. Pain is not out of proportion on examination. She has 2+ dorsalis pedis. She has sensation to light touch. NEUROLOGICAL: Cranial nerves II through XII grossly intact. Moving all extremities SKIN: Warm, dry, no petechiae, no rashes or lesions. Initial Vital Signs Initial Vital Signs: Vital Signs Temperature 97.5 F L 01/02/21 11:00 Pulse Rate 107 H 01/02/21 11:00 Respiratory Rate 18 01/02/21 11:00 Blood Pressure 122/75 01/02/21 11:00 Pulse Oximetry 98 01/02/21 11:00 Course Vital Signs Vital signs: Vital Signs - 8 hr 01/02/21 12:05 Pulse Rate 92 H Respiratory Rate 16 Blood Pressure 128/79 Pulse Oximetry 96 [facility] - Extremity Injury (Lower) Imaging Data Extremity x-ray #1: Radiologist's Impression: [facility] [place] [id number] ReportSigned Patient: Aicha Harris [facility]#: [id number]: 1985Acct:[id number]/Sex: 35 / FDate of Service: 12/30/20Loc: EDAccession Number: [id number] Procedure: XR knee LT 3V Ordering Provider: Speedy Magallon MD PROCEDURE: XR KNEE LT 3V INDICATIONS: heard a pop unable to bear weight, injury while running TECHNIQUE: 3 views of the knee were acquired. COMPARISON: [facility], , XR KNEE RT 3V, 08/22/2018, 17:36. FINDINGS: Bones: No fractures or dislocations. No suspicious bony lesions. Soft tissues: No joint effusion. No suspicious soft tissue calcifications. IMPRESSION: No fracture. If the patient's pain or other symptoms persist, consider further evaluation with MRI Dictated by: Jayce Segura M.D. on 12/30/2020 at 20:11 Approved by: Jayce Segura M.D. on 12/30/2020 at 20:12 [facility] Narrative Medical decision making narrative: Patient xray reviewed from 12/30. No fracture noted at that time. Patient did see her primary care physician Dr. Coombs who has an urgent referral for MRI and patient has been referred to Orthopedic surgery with appointment scheduled for January 14. Patient had prescriptions for clonazepam this is for claustrophobia for MRI and as well as [place] number 60 tablets for pain given to her at that visit. Discussed with patient they went to the MRI registration and were told that it is not currently approved in the system yet. They had gone directly from the appointment. They were referred to by the registration person who stated may be they meant to be sent here. Discussed with patient that patient does need an MRI likely, she does need follow-up with orthopedic surgery. She should continue with pain control and nonweightbearing and knee immobilizer she can tolerate a but we cannot obtain MRI today here in the department. Discharge Plan Departure Patient Disposition: Home Clinical Impression: Left knee pain Activity Restrictions/Additional Instructions: Follow up with your physician, you can call today to see time for for your authorization for your MRI. Follow-up with her scheduled orthopedic surgery appointment. You can always recontact the office to see if they can push your visit to a sooner date. Take pain medication as prescribed by Dr. Lloyd. Continue to use crutches daily. Please return for new or changing symptoms, loss of sensation, new weakness, new back pain, loss of bowel or bladder control, new redness, warmth are skin changes. Prescriptions: No Action zolmitriptan [Zomig] 2.5 mg tablet See Rx Instructions PO .COMPLEX Qty: 120 RF: 0 topiramate 25 mg tablet 25 mg PO DAILY Qty: 60 RF: 0 albuterol 90 mcg/actuation aerosol 90 mcg inhalation DAILY PRNRF: 0 clonazepam 1 mg tablet 1 mg PO DAILY PRN (Reason: claustrophobia) Qty: 2 RF: 0 hydrocodone-acetaminophen 10-325 mg tablet 1 tab PO Q8H PRN (Reason: pain) Qty: 60 RF: 0 famotidine 20 mg tablet 20 mg PO BID RF: 0 amitriptyline 10 mg tablet 10 mg PO DAILY RF: 0 montelukast 10 mg tablet 10 mg PO DAILY RF: 0 ondansetron 4 mg tablet,disintegrating 4 mg PO DAILY RF: 0 amoxicillin 500 mg tablet 500 mg PO TID Qty: 30 RF: 0 oxycodone-acetaminophen 5-325 mg tablet 1 tab PO Q4-6H PRN (Reason: pain) Qty: 14 RF: 0 hydrocodone-acetaminophen 5-325 mg tablet 1 tab PO Q6H PRN (Reason: pain) Qty: 20 RF: 0 ondansetron 4 mg tablet,disintegrating 4 mg PO Q8H PRN (Reason: nausea and vomiting) Qty: 10 RF: 0 Referrals: Pao Rosario ARNP [Primary Care Provider] - Larry Coombs DO [Physician] -
[2021-01-02 12:05] VITALS: BP 128/79; PULSE 92; RESP 16; O2SAT 96
== END 2021-01-02 12:07 | disposition home or self-care (01) ==
PROVIDERS: Emergency Provider Emergency Medicine; PCP Registered Nurse
DX: M25.562 Pain in left knee (principal); R20.0 Anesthesia of skin
CPT/HCPCS: 99281

== ENCOUNTER → 2021-01-06 17:29 | Outpatient (CLI) | payer OTHER, MEDICAID, SELFPAY ==
--- NOTE | 2021-01-06 17:34 | DI.MRI.S_ITS ---
PROCEDURE: MR KNEE LT WO CON INDICATIONS: Severe left knee pain TECHNIQUE: Noncontrast sagittal PD fast spin echo and T2 fast spin echo with fat saturation, sagittal 3-D FLASH with fat saturation; coronal T1 spin echo and PD fast spin echo with fat saturation, and axial PD fast spin echo with fat saturation through the knee. COMPARISON: [facility], MR, MR KNEE LT WO CON, 10/25/2018, 7:30. [facility], CR, XR KNEE LT 3V, 12/30/2020, 19:40. FINDINGS: Image quality: There is inhomogeneous fat saturation. Menisci: There is a moderate sprain or partial tear of the lateral posterior meniscal root ligament without rupture. The medial and lateral menisci otherwise appear intact. Cruciate ligaments: The anterior cruciate ligament is attenuated in appearance with periligamentous and intrasubstance edema consistent with a moderate to severe sprain. There are intact appearing fibers present. The posterior cruciate ligament is intact. Medial structures: The medial collateral ligament appears intact. The semimembranosus tendon insertions and meniscocapsular junction appear intact. Visualized portions of the pes anserinus tendons appear intact without associated bursal fluid collections. Lateral structures: The lateral collateral ligament, long and short heads of the biceps femoris tendon appear intact. The popliteus tendon appears intact. Iliotibial band appears normal. Anterior structures: The quadriceps and patellar tendons appear intact. Mild tendinopathy is is redemonstrated in the distal patellar tendon medially. There is mild lateral tilt and shift of the patella which appear similar to the prior study. No femoral trochlear dysplasia or ventral trochlear prominence. No edema in the infrapatellar fat pad. Bones and cartilage: There are bone contusions of the posterior medial and lateral tibial plateaus with an associated mildly depressed impaction fracture of the posterior lateral tibial plateau. A small bone contusion is also demonstrated peripherally in the medial femoral condyle. The cartilage of the medial and lateral femorotibial compartments, as well as the patellofemoral compartment, appears preserved in thickness. Joint space: There is a moderate joint effusion. No Galeas's cyst. Normal appearing synovial plicae are incidentally noted. IMPRESSION: 1. Moderate to severe sprain of the ACL with intact appearing residual fibers present. 2. Bone contusions of the posterior tibial plateaus with an associated mildly depressed impaction fracture in the posterior lateral tibial plateau. A corresponding small bone contusions present in the medial femoral condyle. 3. Moderate sprain of the lateral posterior meniscal root ligament. 4. Moderate-sized joint effusion. Dictated by: Rafi Turcios M.D. on 01/06/2021 at 18:07 Approved by: Rafi Turcios M.D. on 01/06/2021 at 18:15
== END ==
PROVIDERS: PCP Registered Nurse; Referring Provider Family Medicine; Visit Provider Family Medicine
DX: S43.52XA Sprain of left acromioclavicular joint, initial encounter (principal); S82.142A Displaced bicondylar fracture of left tibia, initial encounter for closed fracture; S83.8X2A Sprain of other specified parts of left knee, initial encounter; M25.462 Effusion, left knee
CPT/HCPCS: 73721

== ENCOUNTER → 2021-02-27 13:12 | Outpatient (CLI) | payer OTHER, MEDICAID, SELFPAY ==
--- NOTE | 2021-02-27 13:14 | DI.RAD.S_ITS ---
PROCEDURE: FL UPPER GI SERIES INDICATIONS: dysphagia COMPARISON: None. FINDINGS: KUB: Preprocedural sap solution manager consultant film demonstrates a normal bowel gas pattern. No suspicious abdominal calcifications. Visualized solid organ contours appear normal. Bony structures appear unremarkable. Esophagus: Esophageal mucosa is normal on air-contrast views. On single-contrast views, there is normal esophageal peristalsis except for a small degree of tertiary contractions within the distal 3rd of the esophagus. No strictures, extrinsic mass effects, or diverticula. No hiatal hernia but there was a slight degree of elicited gastroesophageal reflux. . Stomach: The stomach is normally distensible, with normal rugal fold thickness. No mucosal masses or ulcers. Pylorus and duodenal bulb appear normal in morphology. Duodenal folds are normal in thickness as well. IMPRESSION: Mild episodic tertiary contractions within the distal 3rd of the esophagus, perhaps related to the mild degree of gastroesophageal reflux identified at several points during the examination. There is no sign sign of mass or erosion, or distal esophageal stricture, however. Dictated by: Louie Barrera M.D. on 02/27/2021 at 14:39 Approved by: Louie Barrera M.D. on 02/27/2021 at 14:43
== END ==
PROVIDERS: PCP Family Medicine; Referring Provider Registered Nurse; Visit Provider Registered Nurse
DX: R13.10 Dysphagia, unspecified (principal)
CPT/HCPCS: 74240

== ENCOUNTER 2021-03-18 08:46 | Day surgery (SDC) | payer OTHER, MEDICAID, SELFPAY ==
[2021-03-09 08:50] VITALS: BMI 39.7
[2021-03-18] VITALS (10 sets, daily range): BP systolic 109–135; BP diastolic 71–93; PULSE 86–119; RESP 12–18; TEMP 36.6–37.1; O2SAT 92–98; BMI 39.7
[2021-03-18] MEDS: LACTATED RINGERS 1,000 ML 42 ML IV ×2 (09:14→11:45)
[2021-03-18] MEDS: ACETAMINOPHEN 325 MG TABLET 975 MG PO (09:43)
[2021-03-18] MEDS: CELECOXIB 200 MG CAPSULE PO (09:44)
[2021-03-18] MEDS: PREGABALIN 75 MG CAPSULE PO (09:45)
--- NOTE | 2021-03-18 10:01 | PM.PREOP ---
Pre-operative Note COVID-19 COVID-19 status: Negative Result date/Date tested (Pos, Neg/Pending): 03/16/21 Interval Note History & Physical reviewed/Exam performed by Physician: Yes Changes to H&P: No
[2021-03-18] MEDS: MIDAZOLAM 2 MG/2 ML VIAL IV (10:40)
[2021-03-18] MEDS: fentaNYL 100 MCG/2 ML INJ IV ×5 (10:41→13:18)
[2021-03-18] MEDS: CEFAZOLIN 1 GM VIAL 2 GM IV (11:04)
--- NOTE | 2021-03-18 11:11 | SUR.PREOP ---
Block start time [1040] . Monitoring initiated and maintained throughout procedure. Oxygen and medications given per anesthesiologist instructions. Patient remained stable throughout procedure, no adverse reactions noted. Block end time [1045 ].
--- NOTE | 2021-03-18 11:26 | SUR.OPER ---
Supine on padded OR bed, head on pillow, arms secured on padded arm boards at <90 degrees abduction,left leg prepped and draped in field, legs positioned per surgeon, safety belt at abdomen.
[2021-03-18] MEDS: BUPIVACAINE 0.25% (PF) VIAL 30 ML INJ (11:42)
--- NOTE | 2021-03-18 12:37 | PM.OP.1 ---
Operative Date/Time/Diagnoses Date of procedure: 03/18/21 Time of procedure: 12:37 Pre-op diagnosis: Left knee ACL rupture Post-op diagnosis: same Procedure & Clinicians Procedure: Left knee anterior cruciate ligament reconstruction with hamstring autograft Same procedure as scheduled: Yes Indications: The patient is a physically active 36-year-old woman who ruptured her left anterior cruciate ligament. She wishes to return to athletic activities and therefore has requested an ACL reconstruction. She agreed to this after discussion the risks benefits and alternatives. Risks discussed included but were not limited to: Failure to achieve pain relief or activity goals, stiffness, infection, nerve damage, deep venous thrombosis, pulmonary embolism, stroke, myocardial infarction, permanent paralysis and . Surgeon: Joshua Black Education Associate: Simba Sandoval Click Yes if Unassisted: No Anesthesia Type: General and Local Operative Notes Findings: 1. Inflammation in the suprapatellar pouch 2. Mild chondromalacia patella but no significant cartilage defects in the patellofemoral joint 3. Normal medial and lateral gutters 4. Normal medial compartment 5. Complete avulsion of the ACL from its femoral origin with a large tibial stump the. The PCL appeared to be normal. 6. Normal lateral compartment 7. Normal posterolateral compartment 8. Normal posterior medial compartment. Exam under anesthesia was notable for full range of motion, a grade 2 Onofre's graded in isolation and a grade 2 pivot shift. The opposite knee has a an ACL graft in place and therefore was not used as a comparison however it has a grade 0 Onofre's graded in isolation. Closure Type: primary Specimen(s): none sent Prosthetic devices, grafts, tissues, transplants, or devices: An Arthrex femoral tight rope device was used for the femoral fixation. An Intrafix device with a 30 mm sheath and an 8 x 10 30 mm screw were used for the tibial fixation. Applied: implant(s) Estimated Blood Loss (mL): 10 Blood products transfused: none Tourniquet time (min): 51 Procedure in detail: Patient was seen in the preoperative area where she identified the left knee as the operative site and this was marked with my initials. She received preoperative antibiotics was taken to the operating room and placed on the operating room table in a supine position. A tourniquet was placed around the proximal left thigh. After satisfactory anesthesia and a time study clerk out the left leg was prepared from the toes the tourniquet with ChloraPrep in the usual fashion draped through sterile drapes. A superior medial portal was repaired created for the pump cannula and the knee inflated with saline solution. A lateral portal was created for the arthroscope and diagnostic arthroscopy ensued with the result given above. During diagnostic arthroscopy a medial portal was created for the probe and other tools. After diagnostic arthroscopy and confirmation that there was no meniscal pathology, the arthroscopic equipment was removed from the joint. The leg was elevated and exsanguinated with an Esmarch bandage and the tourniquet inflated 250 mmHg. A 2 cm incision was created overlying the hamstring insertion at the pes anserinus. The sartorius fascia was elevated and the gracilis and semitendinosus tendons were harvested with a closed ended tendon harvester and taken to the back table for preparation into a graft by my acute care certified nursing assistant. During graft preparation I returned the arthroscope into the knee and used the shaver to excise the ACL stump. The arthroscope was then transferred to the medial portal and the guide for the femoral socket was placed through the lateral portal. This was placed in the center of the femoral footprint. A 9 mm socket was drilled to a depth of 25 mm. A passing suture was placed. A 9 mm tibial tunnel was then drilled over a guide pin into the center of the tibial origin of the ACL. The passing suture was pulled through the tibial tunnel and used to deliver the prepared graft into the femoral socket. The button was set and traction placed to confirm cortical fixation. The ?tight rope? device was then used to pull the graft into the socket. The graft tensioning device was affixed to the tibial into the graft and with 20 lb of tension the graft was cycled through 20 cycles of flexion and extension. It was then held at 15 lb of tension while the sheath and screw were placed for tibial fixation. The hardware was placed at a knee flexion angle of 30?. At this point the tourniquet was deflated for total tourniquet time of 51 minutes. The tibial tunnel wound was closed with interrupted 3-0 Vicryl in the subcutaneous layer and a 4-0 Monocryl for the skin. The portals were all closed with 4-0 Monocryl. Steri-Strips were applied. The knee was injected with 20 mL 0.25% Marcaine for postoperative pain control. Dressings of sterile 4x4s, sterile cast padding and an Collin wrap were applied the patient was transported to the recovery room in good condition having tolerated the procedure well. Complications: none Post-operative Condition: stable Disposition: PACU Plan for aftercare: The patient will be discharged home today. She has had prescriptions for Percocet and Vistaril [facility] [place]. She will follow up at my office in 2 weeks. She has been instructed that she can weight bear as tolerated but that she should use crutches for at least the 1st 24 hours and thereafter based on pain. If she is able to walk with weight-bearing as usual without pain she can stop using crutches.
[2021-03-18] MEDS: OXYCODONE IR 5 MG TABLET PO (12:52)
[2021-03-18] MEDS: OXYCODONE/ACETAMINOPHEN 5/325 TABLET 1 TAB PO (13:25)
== END 2021-03-18 14:23 | disposition home or self-care (01) ==
PROVIDERS: PCP Family Medicine; Referring Provider Nurse Practitioner Family; Visit Provider Orthopaedic Surgery
PROC: (CPT 29888; principal; 2021-03-18 10:15)
DX: S83.512A Sprain of anterior cruciate ligament of left knee, initial encounter (principal); K21.9 Gastro-esophageal reflux disease without esophagitis; X50.1XXA Overexertion from prolonged static or awkward postures, initial encounter; Y93.69 Activity, other involving other sports and athletics played as a team or group; M22.42 Chondromalacia patellae, left knee
CPT/HCPCS: 29888; 64450; J0690; J1100; J2250; J2405; J3010

== ENCOUNTER 2021-08-30 19:12 | Emergency (ER) | payer OTHER, MEDICAID, SELFPAY ==
[2021-08-30 19:16] VITALS: BP 135/84; PULSE 76; RESP 20; TEMP 37.1; O2SAT 100
--- NOTE | 2021-08-30 19:24 | ED_ITS ---
HPI - URI/Sore Throat <Ran Hodge PA-C - Last Filed: 08/30/21 19:56> General Chief Complaint: Upper Respiratory Symptoms Stated Complaint: Scratchy swollen throat/Covid exp. x2days Time Seen by Provider: 08/30/21 19:14 Source: patient Mode of arrival: Ambulatory History of Present Illness HPI Narrative: Patient is a 36-year-old female who presents to the ED reporting a recent exposure to someone that tested positive for COVID. She is having complaints of sore throat and headache. She presents to be tested for work related reasons. She denies any cough shortness of breath nausea vomiting diarrhea fever. She reports being fully vaccinated for COVID Related Data Home Medications Medication Instructions Recorded Confirmed amitriptyline 10 mg tablet 50 mg PO DAILY tab 02/25/21 07/22/21 Previous Rx's Medication Instructions Recorded famotidine 20 mg tablet 20 mg PO BID PRN #60 tab 02/25/21 hydroxyzine pamoate 25 mg capsule 25 mg PO Q4HR PRN #40 cap 03/18/21 oxycodone 5 mg tablet 5 mg PO Q4H PRN #40 tab 03/18/21 montelukast 10 mg tablet 10 mg PO DAILY #90 tab 04/07/21 cyclobenzaprine 5 mg tablet 5 mg PO TID PRN #60 tab 07/22/21 Allergies Allergy/AdvReac Type Severity Reaction Status Date / Time sulfamethoxazole Allergy Verified 07/22/21 10:56 [From ] trimethoprim [From ] Allergy Verified 07/22/21 10:56 Review of Systems <Ran Hodge PA-C - Last Filed: 08/30/21 19:56> Review of Systems ROS Unobtainable: All systems reviewed & are unremarkable except as noted in HPI and below Constitutional Constitutional: Denies chills, Denies fatigue, Denies fever(s), Denies frequent falls, Denies lethargy and Denies weakness Eyes Eyes: Denies change in vision, Denies eye discharge, Denies irritation and Denies loss of vision ENT Ears, Nose, Mouth, and Throat: Denies change in voice, Denies dizziness, Denies neck pain, Reports sore throat and Denies throat swelling Cardiovascular Cardiovascular: Denies chest pain, Denies irregular heart rhythm, Denies lightheadedness, Denies palpitations, Denies dyspnea, Denies dyspnea on exertion and Denies orthopnea Respiratory Respiratory: Denies cough, Denies dyspnea, Denies dyspnea on exertion and Denies wheezing Gastrointestinal Gastrointestinal: Denies abdominal pain, Denies change in bowel habits, Denies diarrhea, Denies nausea and Denies vomiting Genitourinary Genitourinary: Denies hematuria, Denies flank pain, Denies urinary incontinence and Denies urinary urgency Musculoskeletal Musculoskeletal: Denies back pain, Denies muscle weakness, Denies neck pain, Denies numbness and Denies tingling Integumentary/Breasts Skin/Breast: Denies pruritus, Denies erythema, Denies rash and Denies wounds Neurologic Neurologic: Denies behavioral changes, Denies confusion, Denies dizziness, Denies frequent falls, Denies loss of vision, Denies numbness, Denies tingling and Denies weakness Psychiatric Psychiatric: Denies anxiety, Denies behavioral changes, Denies confusion, Denies depression, Denies homicidal ideation and Denies suicidal ideation Endocrine Endocrine: Denies fatigue, Denies flushing and Denies palpitations Hematologic/Lymphatic Hematologic/Lymphatic: Denies easy bruising Allergic/Immunologic Allergic/Immunologic: Denies urticaria, Denies throat swelling and Denies wheezi ng Patient History <Ran Hodge PA-C - Last Filed: 08/30/21 19:56> Medical History Abdominal bloating Abnormal weight gain Acute bilateral thoracic back pain Acute lumbar back pain Allergies Anxiety BMI 39.0-39.9,adult Change in stool habits Depression Dietary counseling External hemorrhoids Lumbar region somatic dysfunction Migraines Pelvic somatic dysfunction Sacral region somatic dysfunction Thoracic region somatic dysfunction Torn ACL Surgical History History of placement of ear tubes History of repair of ACL (03/19/19) History of tonsillectomy [place] teeth extracted Social History household members: significant other and family Smoking Status: Never smoker alcohol intake: current Smoking Status: Never smoker alcohol intake frequency: holidays/special occasions only Substance Use Type: does not use Exam <Ran Hodge PA-C - Last Filed: 08/30/21 19:56> Initial Vital Signs Initial Vital Signs: Vital Signs Temperature 98.7 F 08/30/21 19:16 Pulse Rate 76 08/30/21 19:16 Respiratory Rate 20 08/30/21 19:16 Blood Pressure 135/84 08/30/21 19:16 Pulse Oximetry 100 08/30/21 19:16 Const General: cooperative, healthy appearing and comfortable Nutritional Appearance: average body habitus and well nourished HENDC Head: normal to inspection, normocephalic and atraumatic Ears: hearing grossly normal bilaterally and external ears normal Nose: external nose normal and nares normal Face and sinus: normal facial exam and face symmetric Mouth: oral mucosae normal, lip normal, tongue normal, salivary ducts normal and moist mucous membranes Teeth and gingiva: dentition normal and gingiva normal Throat: posterior oropharynx abnormal erythema Resp Effort & Inspection: normal respiratory effort and able to speak in complete sentences Auscultation: clear to auscultation bilaterally <Arnold Skinner DO - Last Filed: 08/31/21 01:17> Initial Vital Signs Initial Vital Signs: Vital Signs Temperature 98.7 F 08/30/21 19:16 Pulse Rate 76 08/30/21 19:16 Respiratory Rate 20 08/30/21 19:16 Blood Pressure 135/84 08/30/21 19:16 Pulse Oximetry 100 08/30/21 19:16 Course <Ran Hodge PA-C - Last Filed: 08/30/21 19:56> Orders Ordered: ED Orders 08/30/21 19:47 COVID19 -Nasal swab/Pre-Proc Stat Vital Signs Vital signs: Vital Signs - 8 hr 08/30/21 19:16 Temperature 98.7 F Pulse Rate 76 Respiratory Rate 20 Blood Pressure 135/84 Pulse Oximetry 100 <DO Young Wesley Last Filed: 08/31/21 01:17> Orders Ordered: ED Orders 08/30/21 19:47 COVID19 -Nasal swab/Pre-Proc Stat Vital Signs Vital signs: Vital Signs - 8 hr 08/30/21 19:16 Temperature 98.7 F Pulse Rate 76 Respiratory Rate 20 Blood Pressure 135/84 Pulse Oximetry 100 MDM - URI/Sore Throat <JAC Sy Last Filed: 08/30/21 19:56> Differential Diagnosis Differential diagnosis: Likely pharyngitis Lab Data Labs: Lab Results 08/30/21 Range/Units 19:47 SARS-CoV-2 (PCR) Negative (Negative) MDM Narrative Medical decision making narrative: Patient was evaluated today for source sore throat. She reports that she had exposure to COVID from a co-worker and is here to be tested. She denies any shortness of breath cough her vital signs and oxygen saturation are adequate she does not require supplemental O2. COVID test performed today patient will be discharged home. <Arnold Skinner, DO - Last Filed: 08/31/21 01:17> Lab Data Labs: Lab Results 08/30/21 Range/Units 19:47 SARS-CoV-2 (PCR) Negative (Negative) Discharge Plan Departure Patient Disposition: Home Clinical Impression: Acute pharyngitis Activity Restrictions/Additional Instructions: *You have been diagnosed with [nonspecific pharyngitis. Your history and physical exam are reassuring and your COVID test is negative *What to do: *Please continue to take your regular medications as directed. [ ] New medication prescriptions sent to your pharmacy: [ ] [ ] New medication written as a paper prescription [ x] No new medications given *Please follow up with your primary care provider in 2-3 days, call for an appointment. Let them know you were seen in the Emergency Department and that we ask that you be seen in follow up. We will electronically transmit a record of today's note if your PCP is in our system *If you do not have a primary care provider please contact the [facility] Resource line at [phone]. They will ask some questions about your medical history and help get you set up with a doctor in the community. *Return to Emergency Department if you should have any new, worsening or c oncerning symptoms, such as [fever greater than 101 F, shaking chills, worsening pain, persistent vomiting or other bothersome symptoms] Prescriptions: No Action montelukast 10 mg tablet 10 mg PO DAILY Qty: 90 3RF famotidine 20 mg tablet 20 mg PO BID PRN (Reason: heartburn) Qty: 60 5RF cyclobenzaprine 5 mg tablet 5 mg PO TID PRN (Reason: muscle spasm) Qty: 60 1RF amitriptyline 10 mg tablet 50 mg PO DAILY 0RF oxycodone 5 mg Tablet 5 mg PO Q4H PRN (Reason: Pain, Moderate (4-6)) Qty: 40 0RF hydroxyzine pamoate 25 mg Capsule 25 mg PO Q4HR PRN (Reason: Spasms) Qty: 40 0RF Referrals: Larry Coombs DO [Primary Care Provider] - <Arnold Skinner DO - Last Filed: 08/31/21 01:17> Cosign ED Attending Cosjaimeature Attestation: I was immediately available in the department for consultation. This documentation has been reviewed and I agree with assessment and plan. Supervised by Arnold Skinner DO
[2021-08-30 20:01] LABS: COVID19 -Nasal RAPID Negative (Negative)
== END 2021-08-30 20:17 | disposition home or self-care (01) ==
PROVIDERS: Emergency Provider Physician Assistant; PCP Family Medicine
DX: J02.9 Acute pharyngitis, unspecified (principal); Z20.822 Contact with and (suspected) exposure to COVID-19
CPT/HCPCS: 87635; 99281; C9803

== ENCOUNTER 2021-09-01 15:22 | Emergency (ER) | payer OTHER, MEDICAID, SELFPAY ==
[2021-09-01 15:29] VITALS: BP 133/86; PULSE 97; RESP 14; TEMP 36.6; O2SAT 100; BMI 31.3
[2021-09-01 17:09] LABS: COVID19 -Nasal RAPID POSITIVE (Negative)
[2021-09-01] MEDS: ONDANSETRON 4 MG ODT SL (17:14)
[2021-09-01] MEDS: diphenhydrAMINE 25 MG TABLET PO (17:15)
[2021-09-01] MEDS: ACETAMINOPHEN 325 MG TABLET 975 MG PO (17:15)
[2021-09-01] MEDS: KETOROLAC 30 MG/ML VIAL 15 MG IM (17:16)
--- NOTE | 2021-09-01 17:23 | ED.URI ---
HPI - URI/Sore Throat <ANTIONETTE Gilliam - Last Filed: 09/01/21 17:28> General Chief Complaint: Upper Respiratory Symptoms Stated Complaint: states covid symptoms are worse Time Seen by Provider: 09/01/21 16:32 Source: patient Mode of arrival: Ambulatory History of Present Illness HPI Narrative: 36-year-old COVID vaccinated x2 female presents to the emergency department for congestion, sore throat, cough, headache which started this morning. Patient states she has a history of migraines and she also has some nausea so she was not sure if this was related. She has a recent exposure to COVID at her workplace, she denies fever, vomiting or diarrhea, chest pain, shortness of breath, wheezing or difficulty breathing. She states these symptoms started this morning and she is requesting COVID testing. Able to tolerate fluids by mouth: Yes Related Data Home Medications Medication Instructions Recorded Confirmed amitriptyline 10 mg tablet 50 mg PO DAILY tab 02/25/21 07/22/21 Previous Rx's Medication Instructions Recorded famotidine 20 mg tablet 20 mg PO BID PRN #60 tab 02/25/21 hydroxyzine pamoate 25 mg capsule 25 mg PO Q4HR PRN #40 cap 03/18/21 oxycodone 5 mg tablet 5 mg PO Q4H PRN #40 tab 03/18/21 montelukast 10 mg tablet 10 mg PO DAILY #90 tab 04/07/21 cyclobenzaprine 5 mg tablet 5 mg PO TID PRN #60 tab 07/22/21 fluticasone propionate 50 1 spray INTRANASAL DAILY PRN #16 g 09/01/21 mcg/actuation nasal spray,suspension guaifenesin 1,200 mg tablet, 1,000 mg PO BID PRN #20 tab 09/01/21 extended release 12 hr fiwfnkzvxmomioe-VJ-gfuwudsmonp 30 1 cap PO Q4-6H PRN #20 tab 09/01/21 mg-10 mg-200 mg tablet Allergies Allergy/AdvReac Type Severity Reaction Status Date / Time sulfamethoxazole Allergy Verified 09/01/21 15:29 [From ] trimethoprim [From ] Allergy Verified 09/01/21 15:29 Review of Systems <ANTIONETTE Gilliam - Last Filed: 09/01/21 17:28> Review of Systems Narrative: General: denies fever, chills, endorses fatigue, denies muscle aches Head/Neck: denies headache, neck pain Eyes: denies visual changes, eye pain Cardio: denies chest pain, palpitations Respiratory: denies shortness of breath, endorses occasional cough without sputum GI: denies abdominal pain, +nausea, denies vomiting, or diarrhea : denies dysuria, hematuria MSK: denies joint pain, muscle weakness or muscle aches Skin: denies rash, itching Neuro: denies numbness, tingling Patient History <ANTIONETTE Gilliam - Last Filed: 09/01/21 17:28> Medical History Abdominal bloating Abnormal weight gain Acute bilateral thoracic back pain Acute lumbar back pain Allergies Anxiety BMI 39.0-39.9,adult Change in stool habits Depression Dietary counseling External hemorrhoids Lumbar region somatic dysfunction Migraines Pelvic somatic dysfunction Sacral region somatic dysfunction Thoracic region somatic dysfunction Torn ACL Surgical History History of placement of ear tubes History of repair of ACL (03/19/19) History of tonsillectomy Gray teeth extracted Social History household members: significant other and family Smoking Status: Never smoker alcohol intake: current Smoking Status: Never smoker alcohol intake frequency: holidays/special occasions only Substance Use Type: does not use Exam <ANTIONETTE Gilliam - Last Filed: 09/01/21 17:28> Narrative Exam Narrative: Independently reviewed vitals signs and nursing notes. General: Awake, alert, well-nourished and developed, nontoxic, no cardiorespiratory distress Head/Neck: Atraumatic, neck full range of motion, trachea midline, no JVD or lymphadenopathy. Supple, nontender, no meningeal signs. Eyes: Pupils equal round and reactive, EOMI, conjunctiva normal, no scleral icterus or injections Nose: nares patent, no rhinorrhea, without purulent drainage or septal hematoma. Mouth/Throat: uvula midline, moist mucus membranes, posterior pharynx erythematous without oral lesions, airway patent Cardio: Regular rate and rhythm, no peripheral edema Respiratory: respirations unlabored without wheezing, stridor, or rales. No retractions. Clear breath sounds GI: Abdomen soft, nontender, nondistended MSK: Moves all extremities, neurovascularly intact, no flank tenderness Skin: Normal capillary refill, no rash Neuro: Normal speech and cognition, normal gait, A&O x3 Initial Vital Signs Initial Vital Signs: Vital Signs Temperature 97.8 F 09/01/21 15:29 Pulse Rate 97 H 09/01/21 15:29 Respiratory Rate 14 09/01/21 15:29 Blood Pressure 133/86 09/01/21 15:29 Pulse Oximetry 100 09/01/21 15:29 <Lory Otero DO - Last Filed: 09/01/21 20:06> Initial Vital Signs Initial Vital Signs: Vital Signs Temperature 97.8 F 09/01/21 15:29 Pulse Rate 97 H 09/01/21 15:29 Respiratory Rate 14 09/01/21 15:29 Blood Pressure 133/86 09/01/21 15:29 Pulse Oximetry 100 09/01/21 15:29 Course <ANTIONETTE Gilliam - Last Filed: 09/01/21 17:28> Orders Ordered: ED Orders 09/01/21 15:34 COVID19 -Nasal swab/Pre-Proc Stat Discontinued Medications Acetaminophen (Acetaminophen 325 Mg Tablet) 975 mg PO NOW ONE Stop: 09/01/21 17:06 Last Admin: 09/01/21 17:15 Dose: 975 mg Documented by: MICHELLE Diphenhydramine HCl (Diphenhydramine 25 Mg Tablet) 25 mg PO NOW ONE Stop: 09/01/21 17:07 Last Admin: 09/01/21 17:15 Dose: 25 mg Documented by: MICHELLE Ketorolac Tromethamine (Ketorolac 30 Mg/Ml Vial) 15 mg IM NOW ONE Stop: 09/01/21 17:06 Last Admin: 09/01/21 17:16 Dose: 15 mg Documented by: MICHELLE Ondansetron HCl (Ondansetron 4 Mg Odt) 4 mg SL NOW ONE Stop: 09/01/21 17:06 Last Admin: 09/01/21 17:14 Dose: 4 mg Documented by: MICHELLE Vital Signs Vital signs: Vital Signs - 8 hr 09/01/21 15:29 09/01/21 17:35 Temperature 97.8 F Pulse Rate 97 H 94 H Respiratory Rate 14 Blood Pressure 133/86 139/86 Pulse Oximetry 100 98 <Lory Otero DO - Last Filed: 09/01/21 20:06> Orders Ordered: ED Orders 09/01/21 15:34 COVID19 -Nasal swab/Pre-Proc Stat Discontinued Medications Acetaminophen (Acetaminophen 325 Mg Tablet) 975 mg PO NOW ONE Stop: 09/01/21 17:06 Last Admin: 09/01/21 17:15 Dose: 975 mg Documented by: MICHELLE Diphenhydramine HCl (Diphenhydramine 25 Mg Tablet) 25 mg PO NOW ONE Stop: 09/01/21 17:07 Last Admin: 09/01/21 17:15 Dose: 25 mg Documented by: MIHCELLE Ketorolac Tromethamine (Ketorolac 30 Mg/Ml Vial) 15 mg IM NOW ONE Stop: 09/01/21 17:06 Last Admin: 09/01/21 17:16 Dose: 15 mg Documented by: MICHELLE Ondansetron HCl (Ondansetron 4 Mg Odt) 4 mg SL NOW ONE Stop: 09/01/21 17:06 Last Admin: 09/01/21 17:14 Dose: 4 mg Documented by: MICHELLE Vital Signs Vital signs: Vital Signs - 8 hr 09/01/21 15:29 09/01/21 17:35 Temperature 97.8 F Pulse Rate 97 H 94 H Respiratory Rate 14 Blood Pressure 133/86 139/86 Pulse Oximetry 100 98 MDM - URI/Sore Throat <ANTIONETTE Gilliam - Last Filed: 09/01/21 17:28> Lab Data Labs: Lab Results 09/01/21 Range/Units 15:34 SARS-CoV-2 (PCR) Positive H (Negative) MDM Narrative Medical decision making narrative: 36-year-old female COVID vaccinated x2 presents to the ER for sore throat, COVID exposure, cough, and headache with nausea. She tested COVID (+) on day 1 of symptoms without hypoxia, respiratory distress, dehydration, or focal exam to suggest secondary bacterial infection. Discussed CDC guidelines for quarantine, mask wearing, physical distancing, and infection prevention measures such as frequent handwashing. Discussed supportive treatments: Tylenol/Motrin as needed for pain/fever. OTC decongestant medications and/or antihistamines for symptomatic relief. Maintain adequate fluid intake. Follow-up with PCP as directed. Return to clinic/ER instructions discussed for new, not improving, or worsening symptoms. All questions answered. <Lory Branden, DO - Last Filed: 09/01/21 20:06> Lab Data Labs: Lab Results 09/01/21 Range/Units 15:34 SARS-CoV-2 (PCR) Positive H (Negative) Discharge Plan Departure Patient Disposition: Home Clinical Impression: COVID-19 Instructions: DI for COVID-19 (Suspected or Confirmed ) Activity Restrictions/Additional Instructions: You have tested positive for COVID, please stay home in quarantine for the next 5 days and wear mask thereafter as long as you have symptoms. Please treat your symptoms with muyv-gby-mojhddm medications as we discussed. Decongestants, guaifenesin, antihistamines, hydration, Tylenol and ibuprofen as needed. 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 Please return to the emergency department if you have worsening your symptoms including chest pain, shortness of breath, difficulty breathing, wheezing or vomiting and are unable to keep anything down. I hope you feel better soon. *You have been diagnosed with [ COVID-19] *What to do: * per recommendations from the CDC and the [facility] Department of Health * stay home except to get medical care. Restrict activities outside your home, except for getting medical care. Do not go to work, school, or public areas. Avoid using public transportation, ride sharing, or taxis. * separate yourself from other people in your home. * call ahead before visiting your doctor * Wear a facemask * Cover your coughs and sneezes * Clean your hands often * Avoid sharing household items * Clean all high-touch services every day * Monitor your symptoms and seek prompt medical attention if your illness is worsening, particularly with difficulty in breathing. You may discontinue your isolation when: 1. You have been fever-free for at least 24 hours without the use of fever reducing medication, AND 2. Your symptoms are getting better 3. At least 10 days have passed since symptoms first appeared Individuals with laboratory confirmed COVID-19 who have not had any symptoms may discontinue home isolation when at least 10 days have passed since the date of their first COVID-19 diagnostic test and have had no subsequent illness *What to do: *Please continue to take your regular medications as directed. [x ] New medication prescriptions sent to your pharmacy: [ [facility]] [ ] New medication written as a paper prescription [ ] No new medications given *Please follow up with your primary care provider in 2-3 days, call for an appointment. Let them know you were seen in the Emergency Department and that we ask that you be seen in follow up. We will electronically transmit a record of today's note if your PCP is in our system *If you do not have a primary care provider please contact the [facility] Resource line at [phone]. They will ask some questions about your medical history and help get you set up with a doctor in the community. *Return to Emergency Department if you should have any new, worsening or concerning symptoms, such as [fever greater than 101F, chills, worsening pain, persistent vomiting or other bothersome symptoms] Prescriptions: New guaifenesin 1,200 mg tablet extended release 12hr 1,000 mg PO BID PRN (Reason: congestion) Qty: 20 0RF nivdzfrxlrhzwop-HL-jfbkahudtrx 30-10-200 mg tablet 1 cap PO Q4-6H PRN (Reason: cold symptoms) Qty: 20 0RF fluticasone propionate 50 mcg/actuation spray,suspension 1 spray intranasal DAILY PRN (Reason: allergy symptoms) Qty: 16 0RF Rx Instructions: administer into each nostril No Action montelukast 10 mg tablet 10 mg PO DAILY Qty: 90 3RF famotidine 20 mg tablet 20 mg PO BID PRN (Reason: heartburn) Qty: 60 5RF cyclobenzaprine 5 mg tablet 5 mg PO TID PRN (Reason: muscle spasm) Qty: 60 1RF amitriptyline 10 mg tablet 50 mg PO DAILY 0RF oxycodone 5 mg Tablet 5 mg PO Q4H PRN (Reason: Pain, Moderate (4-6)) Qty: 40 0RF hydroxyzine pamoate 25 mg Capsule 25 mg PO Q4HR PRN (Reason: Spasms) Qty: 40 0RF Referrals: Larry Coombs DO [Primary Care Provider] - Stand Alone Forms: Work Release Note <Lory Otero DO - Last Filed: 09/01/21 20:06> Cosign ED Attending Cosignature Attestation: I was immediately available in the department for consultation. Documentation has been reviewed. I agree with assessment and plan.
[2021-09-01 17:35] VITALS: BP 139/86; PULSE 94; O2SAT 98
== END 2021-09-01 17:37 | disposition home or self-care (01) ==
PROVIDERS: Emergency Medicine; Emergency Provider Nurse Practitioner Critical Care Medicine; PCP Family Medicine
DX: U07.1 COVID-19 (principal)
CPT/HCPCS: 87635; 96372; 99283; C9803; J1885

== ENCOUNTER 2021-09-09 15:29 | Emergency (ER) | payer OTHER, MEDICAID, SELFPAY ==
--- NOTE | 2021-09-09 15:42 | DI.RAD.S_ITS ---
PROCEDURE: XR CHEST 1V INDICATIONS: chest pain TECHNIQUE: One view of the chest was acquired. COMPARISON: None. FINDINGS: Surgical changes and devices: None. Lungs and pleura: Lungs are clear. No pleural effusions or pneumothorax. Mediastinum: Mediastinal contours appear normal. Heart size is normal. Bones and chest wall: No suspicious bony lesions. Overlying soft tissues appear unremarkable. IMPRESSION: No acute cardiopulmonary abnormality. Dictated by: Rubens Mosher M.D. on 09/09/2021 at 16:05 Approved by: Rubens Mosher M.D. on 09/09/2021 at 16:06
[2021-09-09 15:59] VITALS: BP 124/70; PULSE 77; RESP 18; TEMP 36.5; O2SAT 100
[2021-09-09 16:41] VITALS: PULSE 81; O2SAT 96
[2021-09-09 16:43] VITALS: BP 122/79; PULSE 83; O2SAT 96
--- NOTE | 2021-09-09 16:48 | ED_ITS ---
HPI - Chest Pain <ANTIONETTE Gilliam - Last Filed: 09/09/21 17:43> General Chief Complaint: Chest Pain Stated Complaint: chest pain from covid+ Time Seen by Provider: 09/09/21 15:56 Source: patient Mode of arrival: Ambulatory History of Present Illness HPI narrative: 36-year-old female who tested positive for COVID on 09/01/2021 presents to the emergency department from the walk-in clinic with chief complaint of chest pressure which has been ongoing through her COVID infection and worsening. She denies shortness of breath, difficulty breathing, wheezing, diaphoresis, radiation of her pain. States that she has been taking Sudafed, Flonase, Mucinex for her symptoms with moderate relief. She endorses fatigue and lingering cough without shortness of breath. She denies any recent fever, nausea vomiting, diarrhea. She is concerned about a blood clot and her family member told her comes to the emergency department to get evaluated for this. Patient is not on any control, is not a smoker, denies any risk factors for blood clots other than COVID infection. Related Data Home Medications Medication Instructions Recorded Confirmed amitriptyline 10 mg tablet 50 mg PO DAILY tab 02/25/21 07/22/21 Previous Rx's Medication Instructions Recorded famotidine 20 mg tablet 20 mg PO BID PRN #60 tab 02/25/21 hydroxyzine pamoate 25 mg capsule 25 mg PO Q4HR PRN #40 cap 03/18/21 oxycodone 5 mg tablet 5 mg PO Q4H PRN #40 tab 03/18/21 montelukast 10 mg tablet 10 mg PO DAILY #90 tab 04/07/21 cyclobenzaprine 5 mg tablet 5 mg PO TID PRN #60 tab 07/22/21 fluticasone propionate 50 1 spray INTRANASAL DAILY PRN #16 g 09/01/21 mcg/actuation nasal spray,suspension guaifenesin 1,200 mg tablet, 1,000 mg PO BID PRN #20 tab 09/01/21 extended release 12 hr ascdukmjrjmhzhp-DE-wnhmbgqeafa 30 1 cap PO Q4-6H PRN #20 tab 09/01/21 mg-10 mg-200 mg tablet acetaminophen 300 mg-codeine 30 mg 1 tab PO BID PRN #14 tab 09/09/21 tablet benzonatate 100 mg capsule 100 mg PO TID PRN #20 cap 09/09/21 ibuprofen 600 mg tablet 600 mg PO Q8H PRN #20 tab 09/09/21 methocarbamol 500 mg tablet 500 mg PO Q8H PRN #20 tab 09/09/21 Allergies Allergy/AdvReac Type Severity Reaction Status Date / Time sulfamethoxazole Allergy Verified 09/09/21 15:31 [From ] trimethoprim [From ] Allergy Verified 09/09/21 15:31 Review of Systems <ANTIONETTE Gilliam - Last Filed: 09/09/21 17:43> Review of Systems Narrative: General: denies fever, chills, malaise, sweats, fatigue Head/Neck: denies headache, neck pain, dizziness Eyes: denies visual changes, eye pain Cardio: denies chest pain, palpitations, edema, endorses feeling chest pressure or pain with deep inspiration. Respiratory: denies dyspnea, endorses frequent mildly productive cough, denies orthopnea GI: denies abdominal pain, nausea, vomiting, or diarrhea : denies dysuria, hematuria, urinary retention, frequency or incontinence MSK: denies joint pain, muscle weakness Skin: denies rash, itching, skin lesions or other Neuro: denies numbness, tingling Patient History <ANTIONETTE Gilliam - Last Filed: 09/09/21 17:43> Medical History Abdominal bloating Abnormal weight gain Acute bilateral thoracic back pain Acute lumbar back pain Allergies Anxiety BMI 39.0-39.9,adult Change in stool habits Depression Dietary counseling External hemorrhoids Lumbar region somatic dysfunction Migraines Pelvic somatic dysfunction Sacral region somatic dysfunction Thoracic region somatic dysfunction Torn ACL Surgical History History of placement of ear tubes History of repair of ACL (03/19/19) History of tonsillectomy [place] teeth extracted Social History household members: significant other and family Smoking Status: Never smoker alcohol intake: current Smoking Status: Never smoker alcohol intake frequency: holidays/special occasions only Substance Use Type: does not use Exam <ANTIONETTE Gilliam - Last Filed: 09/09/21 17:43> Narrative Exam Narrative: Independently reviewed vitals signs and nursing notes. General: Cooperative, comfortable, in no acute distress, well developed and well groomed Head/Neck: Normal visual inspection and supple, atraumatic, no JVD or lymphadenopathy. Normal facial exam Eyes: Pupils equal round and reactive, EOMI, conjunctiva normal, no scleral icterus or injections Nose: External nose normal, nares patent, no rhinorrhea, without purulent drainage Mouth/Throat: uvula midline, moist mucus membranes Cardio: Regular rate and rhythm, no peripheral edema, warm extremities Respiratory: Normal respiratory effort, able to speak in complete sentences without audible wheezing, stridor, or rales. No retractions. GI: Abdomen soft, nontender to palpation x4 quadrants, nondistended, no masses or exquisite tenderness with exam, no flank tenderness MSK: Moves all extremities, neurovascularly intact Skin: Normal capillary refill, no rash Neuro: Normal speech and cognition, normal gait, A&O x3, tone normal, moves all extremities Psych: Mental status is grossly normal, speech is clear, congruent mood, normal affect Initial Vital Signs Initial Vital Signs: Vital Signs Temperature 97.7 F 09/09/21 15:59 Pulse Rate 77 09/09/21 15:59 Respiratory Rate 18 09/09/21 15:59 Blood Pressure 124/70 09/09/21 15:59 Pulse Oximetry 100 09/09/21 15:59 <Adrien Baez DO - Last Filed: 09/09/21 17:53> Initial Vital Signs Initial Vital Signs: Vital Signs Temperature 97.7 F 09/09/21 15:59 Pulse Rate 77 09/09/21 15:59 Respiratory Rate 18 09/09/21 15:59 Blood Pressure 124/70 09/09/21 15:59 Pulse Oximetry 100 09/09/21 15:59 Course <ANTIONETTE Gilliam - Last Filed: 09/09/21 17:43> Orders Ordered: ED Orders 09/09/21 15:42 XR chest 1V Stat EKG-12 Lead Stat 09/09/21 16:39 Complete Blood Count AUTO DIFF Stat Comprehensive Metabolic Panel Stat D Dimer Stat Lipase Stat Magnesium Stat Troponin & CK Cardiac Panel Stat Discontinued Medications Ketorolac Tromethamine (Ketorolac 30 Mg/Ml Vial) 15 mg IM NOW ONE Stop: 09/09/21 17:25 Last Admin: 09/09/21 17:41 Dose: 15 mg Documented by: MARIELY Methocarbamol (Methocarbamol 500 Mg Tablet) 500 mg PO NOW ONE Stop: 09/09/21 17:25 Last Admin: 09/09/21 17:41 Dose: 500 mg Documented by: MARIELY Vital Signs Vital signs: Vital Signs - 8 hr 09/09/21 15:59 09/09/21 16:41 09/09/21 16:43 Temperature 97.7 F Pulse Rate 77 81 83 Respiratory Rate 18 Blood Pressure 124/70 122/79 Pulse Oximetry 100 96 96 09/09/21 17:00 Temperature Pulse Rate 78 Respiratory Rate Blood Pressure 108/72 Pulse Oximetry 95 <Adrien Baez DO - Last Filed: 09/09/21 17:53> Orders Ordered: ED Orders 09/09/21 15:42 XR chest 1V Stat EKG-12 Lead Stat 09/09/21 16:39 Complete Blood Count AUTO DIFF Stat Comprehensive Metabolic Panel Stat D Dimer Stat Lipase Stat Magnesium Stat Troponin & CK Cardiac Panel Stat Discontinued Medications Ketorolac Tromethamine (Ketorolac 30 Mg/Ml Vial) 15 mg IM NOW ONE Stop: 09/09/21 17:25 Last Admin: 09/09/21 17:41 Dose: 15 mg Documented by: MARIELY Methocarbamol (Methocarbamol 500 Mg Tablet) 500 mg PO NOW ONE Stop: 09/09/21 17:25 Last Admin: 09/09/21 17:41 Dose: 500 mg Documented by: MARIELY Vital Signs Vital signs: Vital Signs - 8 hr 09/09/21 15:59 09/09/21 16:41 09/09/21 16:43 Temperature 97.7 F Pulse Rate 77 81 83 Respiratory Rate 18 Blood Pressure 124/70 122/79 Pulse Oximetry 100 96 96 09/09/21 17:00 Temperature Pulse Rate 78 Respiratory Rate Blood Pressure 108/72 Pulse Oximetry 95 MDM - Chest Pain <ANTIONETTE Gilliam - Last Filed: 09/09/21 17:43> Lab Data Result diagrams: 09/09/21 16:39 09/09/21 16:39 Labs: Lab Results 09/09/21 09/09/21 09/09/21 Range/Units 16:39 16:39 16:39 WBC 4.1 L (4.5-11.0) X10^3/uL RBC 5.01 (4.0-5.2) X10^6/uL Hgb 14.7 (12.0-16.0) g/dL Hct 42.7 (36-46) % MCV 85.3 (80-100) fL MCH 29.3 (26-34) PG MCHC 34.3 (30-36) % RDW 13.0 (11.6-14.8) % Plt Count 216 (150-400) X10^3/uL Neut % (Auto) 50.3 (50-75) % Lymph % (Auto) 37.4 (25-40) % [place] % (Auto) 7.0 (3-14) % Eos % (Auto) 4.2 H (2-4) % Baso % (Auto) 1.1 (0-2) % Neut # (Auto) 2100 (6636-6652) /uL Lymph # (Auto) 1500 (1396-9208) /uL [place] # (Auto) 300 (0-900) /uL Eos # (Auto) 200 (0-450) /uL Baso # (Auto) 0 (0-100) /uL D-Dimer 211 (<230) ng/mL Sodium 138 (137-145) mmol/L Potassium 3.9 (3.4-5.1) mmol/L Chloride 105 (98-107) mmol/L Carbon Dioxide 31 (22-32) mmol/L BUN 13 (7-17) mg/dL Creatinine 0.70 (0.52-1.04) mg/dL Estimated GFR > 60.0 (>60) mL/min BUN/Creatinine Ratio 18.6 (6-22) Glucose 86 (70-100) mg/dL Calcium 9.0 (8.4-10.2) mg/dL Magnesium 1.9 (1.6-2.3) mg/dL Total Bilirubin 0.2 (0.2-1.3) mg/dL AST 22 (14-36) IU/L ALT 14 (<35) IU/L Alkaline Phosphatase 82 (38-126) U/L Total Creatine Kinase 50 (30-135) U/L CK-MB (CK-2) TNP CK-MB (CK-2) Rel Index TNP Troponin I < 0.012 (0.01-0.034) ng/mL Total Protein 6.8 (6.3-8.2) g/dL Albumin 4.0 (3.5-5.0) g/dL Globulin 2.8 (1.7-4.1) g/dL Albumin/Globulin Ratio 1.4 (1.0-2.8) Lipase 50 (23-300) U/L ABG Data ABG results: VBG ph 7.411, pCO2 24.0, pO2 70, BE -9, HCO3 16, sO2 95% Imaging Data Chest x-ray: Radiologist's Impression: PROCEDURE:? XR CHEST 1V ? INDICATIONS:? chest pain ? TECHNIQUE:? One view of the chest was acquired.? ? COMPARISON:? None. ? FINDINGS:? ? Surgical changes and devices:? None.? ? Lungs and pleura:? Lungs are clear.? No pleural effusions or pneumothorax.? ? Mediastinum:? Mediastinal contours appear normal.? Heart size is normal.? ? Bones and chest wall:? No suspicious bony lesions.? Overlying soft tissues appear unremarkable.? ? IMPRESSION: No acute cardiopulmonary abnormality. ? ? Dictated by: Rubens Mosher M.D. on 09/09/2021 at 16:05 ? ? Approved by: Rubens Mosher M.D. on 09/09/2021 at 16:06 ? ECG Data Interpretation: EKG independently reviewed by Dr. Baez reveals normal sinus rhythm at 81 bpm with regular axis and intervals. No STEMI, ST segment changes, arrhythmia, or acute ischemic changes. MDM Narrative Medical decision making narrative: 36-year-old female who tested positive for COVID on 09/01/2019 to presents to the emergency department complaining of chest pressure after being sent over from the walk-in clinic for the same. Patient denies any shortness of breath, fever, wheezing, difficulty catching her breath, chest pain or radiation of this she states that she feels like something is sitting on her chest. EKG was unremarkable, no ST changes, normal axis with normal intervals, normal sinus rhythm. Chest x-ray was negative for patchy opacity, acute cardiopulmonary process, pneumonia, and pneumothorax. Lab work was unremarkable, no elevation to cardiac enzymes, D-dimer was negative, COVID was not tested as the hospital is in short supply and she was positive on 09/01/2021. This is most likely a long course of COVID or symptoms following her COVID infection. Patient was prescribed muscle or ask SIRS, Tessalon Perles for her cough and Tylenol threes as needed for cough and ibuprofen as needed for pain. Patient was instructed to have close follow-up with her primary care provider common if she has any worsening of these symptoms to return to the emergency department. Differential includes pulmonary embolism although less likely with a negative D-dimer, costochondritis, pneumonia-viral or bacterial, pneumonitis, muscle strain. Patient is appropriate and amenable to discharge home. Vital signs are stable on repeat examination is unremarkable. Patient has been informed of results. Patient has been given strict return to ER precautions for any new or worsening symptoms. Patient understands to follow up closely with outpatient providers as instructed. Patient understands plan and agrees to discharge home. All ques tions and concerns answered at this time. <Adrien Baez, - Last Filed: 09/09/21 17:53> Lab Data Labs: Lab Results 09/09/21 09/09/21 09/09/21 Range/Units 16:39 16:39 16:39 WBC 4.1 L (4.5-11.0) X10^3/uL RBC 5.01 (4.0-5.2) X10^6/uL Hgb 14.7 (12.0-16.0) g/dL Hct 42.7 (36-46) % MCV 85.3 (80-100) fL MCH 29.3 (26-34) PG MCHC 34.3 (30-36) % RDW 13.0 (11.6-14.8) % Plt Count 216 (150-400) X10^3/uL Neut % (Auto) 50.3 (50-75) % Lymph % (Auto) 37.4 (25-40) % [place] % (Auto) 7.0 (3-14) % Eos % (Auto) 4.2 H (2-4) % Baso % (Auto) 1.1 (0-2) % Neut # (Auto) 2100 (9455-5003) /uL Lymph # (Auto) 1500 (5466-4478) /uL [place] # (Auto) 300 (0-900) /uL Eos # (Auto) 200 (0-450) /uL Baso # (Auto) 0 (0-100) /uL D-Dimer 211 (<230) ng/mL Sodium 138 (137-145) mmol/L Potassium 3.9 (3.4-5.1) mmol/L Chloride 105 (98-107) mmol/L Carbon Dioxide 31 (22-32) mmol/L BUN 13 (7-17) mg/dL Creatinine 0.70 (0.52-1.04) mg/dL Estimated GFR > 60.0 (>60) mL/min BUN/Creatinine Ratio 18.6 (6-22) Glucose 86 (70-100) mg/dL Calcium 9.0 (8.4-10.2) mg/dL Magnesium 1.9 (1.6-2.3) mg/dL Total Bilirubin 0.2 (0.2-1.3) mg/dL AST 22 (14-36) IU/L ALT 14 (<35) IU/L Alkaline Phosphatase 82 (38-126) U/L Total Creatine Kinase 50 (30-135) U/L CK-MB (CK-2) TNP CK-MB (CK-2) Rel Index TNP Troponin I < 0.012 (0.01-0.034) ng/mL Total Protein 6.8 (6.3-8.2) g/dL Albumin 4.0 (3.5-5.0) g/dL Globulin 2.8 (1.7-4.1) g/dL Albumin/Globulin Ratio 1.4 (1.0-2.8) Lipase 50 (23-300) U/L Discharge Plan Departure Patient Disposition: Home 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 This is a fancy term for COVID symptoms beyond the predicted course. I am sorry for how long this is been bothersome. Please brain picker your prescriptions at [facility] in [place]. Please continue to wear a mask for as long as you have a cough. Thank you for doing so. Please follow-up with your primary care provider if your symptoms persist. I will send your chart to Dr. Coombs. It is true that COVID can cause irregular menstrual cycle or changes to your menstrual cycle. Tell your mom that she was right. Continue to take medications that help with your symptoms, I have sent muscle relaxers, ibuprofen, Tessalon Perles, and Tylenol 3's to [facility]. These may all help with your symptoms, take the Tessalon Perles and Tylenol threes for your cough along with your Mucinex and decongestants. I hope you feel better soon. Please find a job that works well for you. *What to do: *Please continue to take your regular medications as directed. [x ] New medication prescriptions sent to your pharmacy: [[facility] ] [ ] New medication written as a paper prescription [ ] No new medications given *Please follow up with your primary care provider in 2-3 days, call for an appointment. Let them know you were seen in the Emergency Department and that we ask that you be seen in follow up. We will electronically transmit a record of today's note if your PCP is in our system *If you do not have a primary care provider please contact the [facility] Resource line at [phone]. They will ask some questions about your medical history and help get you set up with a doctor in the community. *Return to Emergency Department if you should have any new, worsening or concerning symptoms, such as [fever greater than 101F, chills, worsening pain, persistent vomiting or other bothersome symptoms] Prescriptions: New benzonatate 100 mg capsule 100 mg PO TID PRN (Reason: cough) Qty: 20 0RF acetaminophen-codeine 300-30 mg tablet 1 tab PO BID PRN (Reason: cough) Qty: 14 0RF methocarbamol 500 mg tablet 500 mg PO Q8H PRN (Reason: muscle spasm) Qty: 20 0RF ibuprofen 600 mg tablet 600 mg PO Q8H PRN (Reason: pain) Qty: 20 0RF No Action montelukast 10 mg tablet 10 mg PO DAILY Qty: 90 3RF famotidine 20 mg tablet 20 mg PO BID PRN (Reason: heartburn) Qty: 60 5RF cyclobenzaprine 5 mg tablet 5 mg PO TID PRN (Reason: muscle spasm) Qty: 60 1RF amitriptyline 10 mg tablet 50 mg PO DAILY 0RF oxycodone 5 mg Tablet 5 mg PO Q4H PRN (Reason: Pain, Moderate (4-6)) Qty: 40 0RF hydroxyzine pamoate 25 mg Capsule 25 mg PO Q4HR PRN (Reason: Spasms) Qty: 40 0RF guaifenesin 1,200 mg tablet extended release 12hr 1,000 mg PO BID PRN (Reason: congestion) Qty: 20 0RF lsfaqzfvpsbspda-BD-ushyobcyvzq 30-10-200 mg tablet 1 cap PO Q4-6H PRN (Reason: cold symptoms) Qty: 20 0RF fluticasone propionate 50 mcg/actuation spray,suspension 1 spray intranasal DAILY PRN (Reason: allergy symptoms) Qty: 16 0RF Rx Instructions: administer into each nostril Referrals: Larry Coombs DO [Primary Care Provider] - Stand Alone Forms: Work Release Note <Adrien Baez DO - Last Filed: 09/09/21 17:53> Cosign ED Attending Cosignature Attestation: Dr Baez Co-Sign Statement: I was available for consultation during this patient's emergency department visit. This chart is signed by myself for administrative purposes only. I did not have direct contact with this patient during this visit. They were seen independently by the APC.
[2021-09-09 16:50] LABS: Add Manual Diff / Slide Review NO; Basophils Absolute Auto 0 /uL (0-100); Basophils Percent Auto 1.1 % (0-2); Eosinophils Absolute Auto 200 /uL (0-450); Eosinophils Percent Auto 4.2 % (2-4); Hematocrit 42.7 % (36-46); Hemoglobin 14.7 g/dL (12.0-16.0); Lymphocytes Absolute Auto 1500 /uL (1100-4500); Lymphocytes Percent Auto 37.4 % (25-40); Mean Corpuscular HGB Conc 34.3 % (30-36); Mean Corpuscular Hemoglobin 29.3 PG (26-34); Mean Corpuscular Volume 85.3 fL (80-100); Monocytes Absolute Auto 300 /uL (0-900); Neutrophils Absolute Auto 2100 /uL (1500-7000); Neutrophils Percent Auto 50.3 % (50-75); Platelet Count 216 X10^3/uL (150-400); Red Blood Cell Count 5.01 X10^6/uL (4.0-5.2); White Blood Cell Count 4.1 X10^3/uL (4.5-11.0)
[2021-09-09 16:58] LABS: D Dimer 211 ng/mL (<230)
[2021-09-09 17:00] VITALS: BP 108/72; PULSE 78; O2SAT 95
[2021-09-09 17:02] LABS: Alanine Aminotransferase 14 IU/L (<35); Albumin Globulin Ratio 1.4 (1.0-2.8); Alkaline Phosphatase 82 U/L (38-126); Aspartate Aminotransferase 22 IU/L (14-36); BUN Creatinine Ratio 18.6 (6-22); Bilirubin Total 0.2 mg/dL (0.2-1.3); Blood Urea Nitrogen 13 mg/dL (7-17); Carbon Dioxide 31 mmol/L (22-32); Chloride 105 mmol/L (98-107); Creatine Kinase 50 U/L (30-135); Estimated Glomerular Filt Rate > 60.0 mL/min (>60); Globulin 2.8 g/dL (1.7-4.1); Glucose 86 mg/dL (70-100); HEMOLYSIS < 15 (0-50); Lipase 50 U/L (23-300); Magnesium 1.9 mg/dL (1.6-2.3); Potassium 3.9 mmol/L (3.4-5.1); Sodium 138 mmol/L (137-145); Total Protein 6.8 g/dL (6.3-8.2)
[2021-09-09 17:13] LABS: Troponin I < 0.012 ng/mL (0.01-0.034)
[2021-09-09] MEDS: methocarbamoL 500 MG TABLET PO (17:41)
[2021-09-09] MEDS: KETOROLAC 30 MG/ML VIAL 15 MG IM (17:41)
== END 2021-09-09 18:05 | disposition home or self-care (01) ==
PROVIDERS: Emergency Medicine; Emergency Provider Nurse Practitioner Critical Care Medicine; PCP Family Medicine
DX: R07.89 Other chest pain (principal); U09.9 Post COVID-19 condition, unspecified
CPT/HCPCS: 36415; 71045; 80053; 82550; 83690; 83735; 84484; 85025; 85379; 93005; 96372; 99284; J1885

== ENCOUNTER → 2021-11-02 15:50 | Outpatient (CLI) | payer OTHER, MEDICAID, SELFPAY | PROVIDERS: PCP Family Medicine; Visit Provider Nurse Practitioner | DX: N89.8 Other specified noninflammatory disorders of vagina (principal) | CPT/HCPCS: 87070; 87205 ==

== ENCOUNTER → 2021-11-02 16:02 | Outpatient (CLI) | payer OTHER, MEDICAID, SELFPAY ==
[2021-11-02 16:58] LABS: Appearance Urine UA CLEAR; Bilirubin Urine UA NEGATIVE (NEGATIVE); Color Urine UA YELLOW; Glucose Urine UA NEGATIVE (Negative); Ketones Urine UA NEGATIVE (NEGATIVE); Leukocyte Esterase Urine UA NEGATIVE (NEGATIVE); Nitrite Urine UA NEGATIVE (Negative); Occult Blood Urine UA TRACE-LYSED (Negative); Protein Urine UA NEGATIVE (Negative); Urobilinogen Urine UA 0.2 E.U./dL (0.2)
== END ==
PROVIDERS: PCP Family Medicine; Referring Provider Nurse Practitioner; Visit Provider Nurse Practitioner
DX: R30.0 Dysuria (principal); N89.8 Other specified noninflammatory disorders of vagina
CPT/HCPCS: 81003; 87070; 87147; 87205

== ENCOUNTER → 2021-12-22 15:10 | Outpatient (CLI) | payer OTHER, MEDICAID, SELFPAY ==
--- NOTE | 2021-12-22 15:11 | DI.US.S_ITS ---
PROCEDURE: US PELVIC COMPLETE INDICATIONS: CMT TECHNIQUE: Real-time scanning was performed of the pelvic organs, with image documentation. Additional endovaginal scanning was necessary due to incomplete visualization of the adnexal and endometrial structures by transabdominal scanning. COMPARISON: None. FINDINGS: Uterus: Uterus is anteverted and normal in size at 7.7 x 3.8 x 4.7 cm. The myometrium is slightly heterogenous. The endometrium measures 5.6 mm combined thickness. Ovaries: The right ovary measures 4.2 x 2.6 x 2.1 cm. The left ovary measures 3.5 x 2.4 x 2.0 cm. The ovaries have a normal sonographic appearance. Less than 12 follicles can be seen in each ovary. No adnexal masses are seen. The has an involuting cyst measuring 8 x 9 x 10 mm Other: No pathologic free abdominal or pelvic fluid. IMPRESSION: 1. No acute ultrasound abnormality of the pelvis. 2. The ovaries both have simple appearing follicles. We strive to produce accurate, complete, and clear reports of imaging services. To assist us in improving patient care, this report was composed using standard report templates and voice recognition software. Therefore, it may contain abnormal punctuation, insertions and/or omissions. Occasional wrong-word or sound-alike substitutions may occur. Though we review the report and make efforts to correct it, we do recommend that the report be read carefully in proper context to recognize any text inaccuracies. Dictated by: Yahir Lundberg M.D. on 12/22/2021 at 17:18 Approved by: Yahir Lundberg M.D. on 12/22/2021 at 17:24
--- NOTE | 2021-12-22 15:11 | DI.MG.S_ITS ---
BILATERAL DIGITAL SCREENING MAMMOGRAM 3D/2D WITH CAD: 12/22/2021 CLINICAL: Routine screening. Family history of breast cancer. Comparison is made to exams dated: 03/22/2020 mammogram and 11/08/2018 mammogram - . There are scattered fibroglandular elements in both breasts. Current study was also evaluated with a Computer Aided Detection (CAD) system. There are benign calcifications in both breasts. No significant masses, calcifications, or other findings are seen in either breast. There has been no significant interval change. IMPRESSION: BENIGN There is no mammographic evidence of malignancy. A 1 year screening mammogram is recommended. This exam was interpreted at Station ID: [id number]. NOTE: For mammograms, a report in lay terms will be sent to the patient. Approximately 15% of breast malignancies will not be visualized mammographically. In the management of a palpable breast mass, a negative mammogram must not discourage biopsy of a clinically suspicious lesion. Electronically Signed By: Rubens elise/elida:12/23/2021 08:12:49 letter sent: Normal Exam ACR BI-RADS Category 2: Benign Finding(s) [id number]
== END ==
PROVIDERS: PCP Family Medicine; Referring Provider Nurse Practitioner; Visit Provider Nurse Practitioner
DX: Z12.31 Encounter for screening mammogram for malignant neoplasm of breast (principal); N94.9 Unspecified condition associated with female genital organs and menstrual cycle; Z80.3 Family history of malignant neoplasm of breast
CPT/HCPCS: 76830; 76856; 77063; 77067

== ENCOUNTER → 2022-01-07 18:19 | Outpatient (CLI) | payer OTHER, MEDICAID, SELFPAY ==
--- NOTE | 2022-01-07 | DI.MRI.S_ITS ---
PROCEDURE: MR FEMUR RT WO CON INDICATIONS: Hamstring eval TECHNIQUE: Noncontrast coronal and sagittal T1 spin echo and STIR; axial T1 spin echo and T2 fast spin echo with fat saturation through the right thigh. COMPARISON: None. FINDINGS: Image quality: Excellent. Bones: The visualized bone marrow demonstrates normal signal on all sequences. The overlying cortex appears intact. No fractures lines or intra-osseous lesions. Soft tissues: There is full-thickness rupture involving origins of hamstring tendons at ischial tuberosity with up to 3 cm distal retraction of torn tendon fibers and moderate amount of surrounding fluid. No other muscle or tendon signal abnormality is seen. No soft tissue mass or fluid collection is noted. Small lymph nodes are seen in right inguinal region. IMPRESSION: 1. Full-thickness rupture of proximal right hamstring tendon origins at ischial tuberosity with up to 3 cm distal retraction of torn tendon fibers and moderate amount of surrounding fluid. 2. No marrow edema. No fracture or dislocation. No suspicious intraosseous lesion. 3. No other muscle or tendon signal abnormality is seen. Dictated by: Jas Giang M.D. on 01/08/2022 at 8:38 Approved by: Jas Giang M.D. on 01/08/2022 at 8:49
== END ==
PROVIDERS: PCP Family Medicine; Referring Provider Orthopaedic Surgery; Visit Provider Orthopaedic Surgery
DX: S76.311A Strain of muscle, fascia and tendon of the posterior muscle group at thigh level, right thigh, initial encounter (principal); X58.XXXA Exposure to other specified factors, initial encounter
CPT/HCPCS: 73718

== ENCOUNTER → 2022-05-04 16:09 | Outpatient (CLI) | payer OTHER, MEDICAID, SELFPAY ==
--- NOTE | 2022-05-04 16:11 | DI.MRI.S_ITS ---
PROCEDURE: MR SHOULDER RT WO CON INDICATIONS: Pain in right shoulder TECHNIQUE: Noncontrast oblique coronal T2 fast spin echo with fat saturation, oblique sagittal T1 spin echo and T2 fast spin echo with fat saturation, axial T1 spin echo and T2 fast spin echo with fat saturation through the shoulder. COMPARISON: [facility] [place], CR, XR SHOULDER 2+ VIEWS RIGHT, 04/27/2022, 15:52. FINDINGS: Image quality: Excellent. Rotator cuff: Mild supraspinatus and infraspinatus tendinosis with low-grade bursal surface fraying. The teres minor and subscapularis tendons are intact. There is no significant rotator cuff muscle atrophy. Bones and bursae: No acute trabecular bone injury or fracture. Small chronic traction cystic changes are seen at the posterosuperior humeral head. Mild degenerative changes are seen at the acromioclavicular joint. Accessory os acromiale is present with mild degenerative changes at the synchondrosis including mild osseous edema. There is a trace amount of subacromial/subdeltoid bursal fluid. No significant glenohumeral joint effusion. Capsule and soft tissues: There is nondisplaced tearing of the anteroinferior labrum extending into the anterosuperior and superior labrum. Small anterior paralabral cysts are seen measuring up to 6 mm and 5 mm in greatest dimension respectively. Suspected additional small nondisplaced posterior labral tear. Mild tendinosis of the proximal biceps long head tendon. The glenohumeral ligaments are grossly intact. There is mild partial effacement of the fat in the rotator interval. IMPRESSION: 1. Nondisplaced tearing of the anteroinferior labrum extending to involve the anterosuperior and superior labrum with small anterior paralabral cysts. Suspected additional small focal nondisplaced posterior labral tear. 2. Mild proximal biceps long head tendinosis. 3. Mild supraspinatus and infraspinatus tendinosis with low-grade bursal surface fraying but no significant rotator cuff tendon tear. 4. Mild acromioclavicular joint osteoarthrosis. 5. Trace subacromial/subdeltoid bursal effusion or bursitis. Dictated by: Ryland Perez M.D. on 05/05/2022 at 14:07 Approved by: Ryland Perez M.D. on 05/05/2022 at 14:13
== END ==
PROVIDERS: PCP Family Medicine; Referring Provider Orthopaedic Surgery; Visit Provider Orthopaedic Surgery
DX: M19.011 Primary osteoarthritis, right shoulder (principal); M25.511 Pain in right shoulder
CPT/HCPCS: 73221

== ENCOUNTER 2022-07-08 18:09 | Emergency (ER) | payer OTHER, MEDICAID, SELFPAY ==
[2022-07-08 18:44] VITALS: BP 132/93; PULSE 88; RESP 18; TEMP 36.8; O2SAT 100; BMI 37.5
[2022-07-08] MEDS: ACETAMINOPHEN 325 MG TABLET 975 MG PO (18:58)
[2022-07-08] MEDS: KETOROLAC 30 MG/ML VIAL IM (18:59)
--- NOTE | 2022-07-08 19:58 | ED_ITS ---
HPI - Back Pain/Injury <Aggie Traore, [facility] - Last Filed: 07/08/22 20:03> General Chief Complaint: Back Pain/Injury Stated Complaint: Back/neck pain, 05/17 Time Seen by Provider: 07/08/22 18:54 Source: patient History of Present Illness HPI Narrative: This is a 37-year-old female presents to the emergency department complaining of left-sided low back pain which started yesterday, states that she has sciatica to the posterior of her left buttock. She denies any sciatica symptoms down her leg. Does not know what started her pain, states that she may have twisted in cause something because her pain started all of a sudden. Patient states that she had a upper respiratory infection and was on prednisone last week, states that she flew to [place], went to [facility], did not have any back pain problems until she came home and her steroids had been finished for 2 days, and her left hip pain/sciatica started. She denies weakness, denies any pain with bearing weight, states that it is worse with flexion of her spine, leg lift, walking, or sudden movements. She denies any numbness or tingling, weakness, altered mental status, fever or chills. She has a history asthma, somatic dysfunction of lower extremities, chronic pain, GERD and obesity. Related Data Home Medications Medication Instructions Recorded Confirmed amitriptyline 10 mg tablet 50 mg PO DAILY 02/25/21 06/27/22 Previous Rx's Medication Instructions Recorded famotidine 20 mg tablet 20 mg PO BID PRN heartburn #60 tabs 02/25/21 hydroxyzine pamoate 25 mg capsule 25 mg PO Q4HR PRN Spasms #40 caps 03/18/21 cyclobenzaprine 5 mg tablet 5 mg PO TID PRN muscle spasm #60 07/22/21 tabs fluticasone propionate 50 1 spray intranasal DAILY PRN 09/01/21 mcg/actuation nasal allergy symptoms #16 grams spray,suspension [id number] 30 1 cap PO Q4-6H PRN cold symptoms 09/01/21 mg-10 mg-200 mg tablet #20 tabs acetaminophen 300 mg-codeine 30 mg 1 tab PO BID PRN cough #14 tabs 09/09/21 tablet ibuprofen 600 mg tablet 600 mg PO Q8H PRN pain #20 tabs 09/09/21 methocarbamol 500 mg tablet 500 mg PO Q8H PRN muscle spasm #20 09/09/21 tabs ondansetron HCl 8 mg tablet 8 mg PO Q8H PRN nausea and 09/11/21 vomiting #60 tabs fluticasone furoate 50 1 inh inhalation DAILY #30 ea 09/22/21 mcg/actuation blister powder for inhalation montelukast 10 mg tablet 10 mg PO DAILY #90 tabs 06/07/22 albuterol sulfate 90 mcg/actuation 2 puff inhalation Q6H PRN 06/22/22 aerosol inhaler (Proventil HFA) shortness of breath or wheezing 30 days #8.5 grams benzonatate 100 mg capsule 100 mg PO BID-TID PRN cough #30 06/22/22 caps methylprednisolone 4 mg tablets in See Rx Instructions PO PER PKG DIR 06/22/22 a dose pack (Medrol (Jon)) #21 ea lidocaine 5 % topical patch 1 patch topical DAILY #15 ea 07/08/22 (Lidoderm) methocarbamol 750 mg tablet 750 mg PO TID PRN muscle spasm #20 07/08/22 tabs prednisone 20 mg tablet 40 mg PO DAILY 5 days #10 tabs 07/08/22 Allergies Allergy/AdvReac Type Severity Reaction Status Date / Time sulfamethoxazole Allergy Verified 06/27/22 09:49 [From ] trimethoprim [From ] Allergy Verified 06/27/22 09:49 Review of Systems <ANTIONETTE Gilliam - Last Filed: 07/08/22 20:03> Review of Systems Narrative: Review of systems is negative for acute abnormalities unless otherwise noted in HPI Patient History <ANTIONETTE Gilliam - Last Filed: 07/08/22 20:03> Medical History Abdominal bloating Abnormal weight gain Acute bilateral thoracic back pain Acute lumbar back pain Acute pain of right lower extremity Allergies Anxiety BMI 39.0-39.9,adult Change in stool habits Chronic right shoulder pain Complete proximal hamstring tendon rupture Depression Dietary counseling Episodic lightheadedness External hemorrhoids Family history of breast cancer in mother Lumbar region somatic dysfunction Migraines Nausea Pelvic somatic dysfunction Sacral region somatic dysfunction Somatic dysfunction of lower extremity Thoracic region somatic dysfunction Torn ACL Surgical History History of placement of ear tubes History of repair of ACL (03/19/19) History of tonsillectomy [place] teeth extracted Social History household members: significant other and family Smoking Status: Never smoker alcohol intake: current Smoking Status: Never smoker alcohol intake frequency: holidays/special occasions only Substance Use Type: does not use Exam <ANTIONETTE Gilliam - Last Filed: 07/08/22 20:03> Narrative Exam Narrative: Reviewed vitals signs and nursing notes. General: cooperative, comfortable, in no acute distress, well groomed HEENT: symmetrical facial expressions, moist mucous membranes GI: abdomen soft, nontender to palpation, nondistended, without masses, rebound tenderness or exquisite tenderness with exam. MSK: moves all extremities, neurovascularly intact, no weakness, normal tone, nontender over her lumbar spine, left paraspinal musculature is tense to palpation, pain radiates to her left buttock without further radiation, left leg lift exacerbates her symptoms as does forward flexion of her spine. She is ambulatory, without weakness or sensation changes. Skin: brisk capillary refill, without pallor or erythema Neuro: normal speech and cognition, A&O x3, ambulatory, clear speech Psych: mental status is grossly normal, congruent mood, normal affect, pleasant and cooperative Initial Vital Signs Initial Vital Signs: Vital Signs Temperature 98.2 F 07/08/22 18:44 Pulse Rate 88 07/08/22 18:44 Respiratory Rate 18 07/08/22 18:44 Blood Pressure 132/93 H 07/08/22 18:44 Pulse Oximetry 100 07/08/22 18:44 Oxygen Delivery Method 07/08/22 18:44 <Meg More MD - Last Filed: 07/09/22 03:36> Initial Vital Signs Initial Vital Signs: Vital Signs Temperature 98.2 F 07/08/22 18:44 Pulse Rate 88 07/08/22 18:44 Respiratory Rate 18 07/08/22 18:44 Blood Pressure 132/93 H 07/08/22 18:44 Pulse Oximetry 100 07/08/22 18:44 Oxygen Delivery Method 07/08/22 18:44 Course <ANTIONETTE Gilliam - Last Filed: 07/08/22 20:03> Orders Ordered: Discontinued Medications Acetaminophen (Acetaminophen 325 Mg Tablet) 975 mg PO NOW ONE Stop: 07/08/22 18:55 Last Admin: 07/08/22 18:58 Dose: 975 mg Documented By: MODE Ketorolac Tromethamine (Ketorolac 30 Mg/Ml Vial) 30 mg IM NOW ONE Stop: 07/08/22 18:55 Last Admin: 07/08/22 18:59 Dose: 30 mg Documented By: MODE Lidocaine (Lidocaine Patch 1 Each Adh..Patch) 1 each TOP NOW ONE Stop: 07/08/22 19:53 Last Admin: 07/08/22 20:07 Dose: 1 each Documented By: MODE(2) Methocarbamol (Methocarbamol 500 Mg Tablet) 750 mg PO NOW ONE Stop: 07/08/22 19:53 Last Admin: 07/08/22 20:07 Dose: 750 mg Documented By: MODE(2) Oxycodone HCl (Oxycodone Ir 5 Mg Tablet) 5 mg PO NOW ONE Stop: 07/08/22 19:53 Last Admin: 07/08/22 20:07 Dose: 5 mg Documented By: MODE(2) Prednisone (Prednisone 20 Mg Tablet) 40 mg PO NOW ONE Stop: 07/08/22 19:55 Last Admin: 07/08/22 20:07 Dose: 40 mg Documented By: MODE(2) Vital Signs Vital signs: Vital Signs - 8 hr 07/08/22 20:06 07/08/22 20:35 Pulse Rate 85 87 Respiratory Rate 18 Blood Pressure 136/98 H 149/105 H Pulse Oximetry 97 96 Oxygen Delivery Method Room Air Room Air <Meg More MD - Last Filed: 07/09/22 03:36> Orders Ordered: Discontinued Medications Acetaminophen (Acetaminophen 325 Mg Tablet) 975 mg PO NOW ONE Stop: 07/08/22 18:55 Last Admin: 07/08/22 18:58 Dose: 975 mg Documented By: MODE Ketorolac Tromethamine (Ketorolac 30 Mg/Ml Vial) 30 mg IM NOW ONE Stop: 07/08/22 18:55 Last Admin: 07/08/22 18:59 Dose: 30 mg Documented By: MODE Lidocaine (Lidocaine Patch 1 Each Adh..Patch) 1 each TOP NOW ONE Stop: 07/08/22 19:53 Last Admin: 07/08/22 20:07 Dose: 1 each Documented By: MODE(2) Methocarbamol (Methocarbamol 500 Mg Tablet) 750 mg PO NOW ONE Stop: 07/08/22 19:53 Last Admin: 07/08/22 20:07 Dose: 750 mg Documented By: MODE(2) Oxycodone HCl (Oxycodone Ir 5 Mg Tablet) 5 mg PO NOW ONE Stop: 07/08/22 19:53 Last Admin: 07/08/22 20:07 Dose: 5 mg Documented By: MODE(2) Prednisone (Prednisone 20 Mg Tablet) 40 mg PO NOW ONE Stop: 07/08/22 19:55 Last Admin: 07/08/22 20:07 Dose: 40 mg Documented By: MODE(2) Vital Signs Vital signs: Vital Signs - 8 hr 07/08/22 20:06 07/08/22 20:35 Pulse Rate 85 87 Respiratory Rate 18 Blood Pressure 136/98 H 149/105 H Pulse Oximetry 97 96 Oxygen Delivery Method Room Air Room Air MDM - Back Pain/Injury <Aggie Traore [facility] - Last Filed: 07/08/22 20:03> MDM Narrative Medical decision making narrative: Patient presents with 2 days of left-sided low back pain with radiation to her left posterior buttock, is without recent trauma, and is afebrile. Suspect likely musculoskeletal etiology, pt is nontoxic appearing with no overt risk factors for epidural hematoma or abscess, cauda equina, and has a nonfocal neuro exam. Spine was non-tender to palpation, pt is ambulatory, without new weakness. Pt is neurovascularly intact distally, afebrile, without immunosuppression or evidence of infection, peritoneal signs, hypertensive crisis, incontinence, meningeal signs, or abdominal pain with low suspicion for AAA. Considered nephrolithiasis/pyelonephritis, epidural abscess/hematoma, ligamental injury, paraspinal or other muscular strain, chronic pain, osteoarthritis, disk injury/herniation, degenerative disease, radiculopathy, and critical cord compression, osteomyelitis, degenerative myelopathy, transverse myelitis and she is Without findings concerning for these diagnoses. This is most likely lumbar radiculopathy. Patient understands to follow-up with Dr. Lloyd for a referral to physical therapy, and other outpatient services as needed. Her symptoms improved with the medications given in the emergency department and she states understanding to her discharge instructions and requested go home. Patient is appropriate and amenable to discharge home. Vital signs are stable on repeat examination is unremarkable. Patient has been informed of results. Patient has been given strict return to ER precautions for any new or worsening symptoms. Patient understands to follow up closely with outpatient providers as instructed. Patient understands plan and agrees to discharge home. All questions and concerns answered at this time. Discharge Plan Departure Patient Disposition: Home Clinical Impression: Acute left lumbar radiculopathy Instructions: DI for Low Back Pain, DI for Back Pain With Sciatica, DI for Back Spasm Activity Restrictions/Additional Instructions: *You have been diagnosed with lumbar radiculopathy which is a pain message coming from your lumbar spine. Please try to avoid over exertion, over stretching, or increased activity and rest using heat and ice as tolerated. Please stay hydrated, use topical agents like lidocaine patches, Voltaren gel, or CBD cream if it is helpful. Your evaluation suggests no dangerous findings that require further intervention at this time. Although you will still have pain, it should start improving. Move around as tolerated but avoid heavy lifting or significant exertion. Bed rest is not recommended nor is it the best treatment for low back pain. Please try ibuprofen 800 mg every 8 hours for pain with food and water, a muscle relaxer, one tab every 8 hours as needed for muscle spasms, caution-this will make you tired, please do not drive or operate a vehicle on these. Please try alternating with heat and ice if helpful, try topical diclofenac gel or lidocaine patches. Follow up with primary care for referal to physical therapy and for outpatient therapies as needed. Do not drink alcohol, drive a car, operate machinery, or get up on ladders or heights when taking any prescribed pain medications. Do not drive home if you received prescribed pain medication here in the emergency department. Please follow-up with your primary care provider as needed, return to the emergency department immediately if you have new incontinence or difficulty urinating, inability to control your bowels, groin numbness, new weakness or the inability to walk, fever, or worsening symptoms. I recommend physical therapy and follow-up for any needed treatments. It is safe to take Tylenol with this every 6-8 hours. *What to do: *Please continue to take your regular medications as directed. [ ] New medication prescriptions sent to your pharmacy: [[facility]] [ ] New medication written as a paper prescription [ ] No new medications given *Please follow up with your primary care provider in 2-3 days, call for an appointment. Let them know you were seen in the Emergency Department and that we asked that you be seen for follow-up. We will electronically transmit a record of today's note if your PCP is in our system *If you do not have a primary care provider please contact [phone] to establish care with one of [facility] primary care providers. *Return to Emergency Department if you should have any new, worsening, or concerning symptoms, such as [fever greater than 101F, chills, worsening pain, persistent vomiting or other bothersome symptoms]. Prescriptions: New methocarbamol 750 mg tablet 750 mg PO TID PRN (Reason: muscle spasm) Qty: 20 0RF prednisone 20 mg tablet 40 mg PO DAILY 5 Days Qty: 10 0RF lidocaine [Lidoderm] 5 % adhesive patch,medicated 1 patch topical DAILY Qty: 15 0RF Rx Instructions: leave on most painful area for up to 12 hrs No Action methylprednisolone [Medrol (Jon)] 4 mg tablets,dose pack See Rx Instructions PO PER PKG DIR Qty: 21 0RF Rx Instructions: PO PER PKG DIR albuterol sulfate [Proventil HFA] 90 mcg/actuation HFA aerosol inhaler 2 puff inhalation Q6H PRN (Reason: shortness of breath or wheezing) 30 Days Qty: 8.5 0RF benzonatate 100 mg capsule 100 mg PO BID-TID PRN (Reason: cough) Qty: 30 0RF fluticasone furoate 50 mcg/actuation blister with device 1 inh inhalation DAILY Qty: 30 1RF montelukast 10 mg tablet 10 mg PO DAILY Qty: 90 3RF famotidine 20 mg tablet 20 mg PO BID PRN (Reason: heartburn) Qty: 60 5RF cyclobenzaprine 5 mg tablet 5 mg PO TID PRN (Reason: muscle spasm) Qty: 60 1RF ondansetron HCl 8 mg tablet 8 mg PO Q8H PRN (Reason: nausea and vomiting) Qty: 60 1RF amitriptyline 10 mg tablet 50 mg PO DAILY hydroxyzine pamoate 25 mg Capsule 25 mg PO Q4HR PRN (Reason: Spasms) Qty: 40 0RF [id number]-WV-[id number] 30-10-200 mg tablet 1 cap PO Q4-6H PRN (Reason: cold symptoms) Qty: 20 0RF fluticasone propionate 50 mcg/actuation spray,suspension 1 spray intranasal DAILY PRN (Reason: allergy symptoms) Qty: 16 0RF Rx Instructions: administer into each nostril acetaminophen-codeine 300-30 mg tablet 1 tab PO BID PRN (Reason: cough) Qty: 14 0RF methocarbamol 500 mg tablet 500 mg PO Q8H PRN (Reason: muscle spasm) Qty: 20 0RF ibuprofen 600 mg tablet 600 mg PO Q8H PRN (Reason: pain) Qty: 20 0RF Referrals: Simba Coombs DO [Primary Care Provider] - Visit Report Forms: Patient Portal/API <Meg More MD - Last Filed: 07/09/22 03:36> Cosign ED Attending Cosjaimeature Attestation: I was immediately available in the department for consultation throughout this patient's visit. I agree with documentation as above. Meg More MD
[2022-07-08 20:06] VITALS: BP 136/98; PULSE 85; RESP 18; O2SAT 97
[2022-07-08] MEDS: LIDOCAINE PATCH 1 EACH ADH..PATCH TOP (20:07)
[2022-07-08] MEDS: OXYCODONE IR 5 MG TABLET PO (20:07)
[2022-07-08] MEDS: predniSONE 20 MG TABLET 40 MG PO (20:07)
[2022-07-08] MEDS: methocarbamoL 500 MG TABLET 750 MG PO (20:07)
[2022-07-08 20:35] VITALS: BP 149/105; PULSE 87; O2SAT 96
== END 2022-07-08 20:35 | disposition home or self-care (01) ==
PROVIDERS: Emergency Provider Nurse Practitioner Critical Care Medicine; PCP Family Medicine
DX: M54.16 Radiculopathy, lumbar region (principal)
CPT/HCPCS: 96372; 99283; J1885

== ENCOUNTER → 2022-07-14 11:39 | Outpatient (CLI) | payer OTHER, MEDICAID, SELFPAY | PROVIDERS: PCP Family Medicine; Visit Provider Family Medicine | DX: M54.50 Low back pain, unspecified (principal) | CPT/HCPCS: 81002; 87086 ==

== ENCOUNTER → 2022-07-21 15:14 | Outpatient (CLI) | payer OTHER, MEDICAID, SELFPAY ==
--- NOTE | 2022-07-21 15:14 | DI.RAD.S_ITS ---
PROCEDURE: XR LUMBAR SPINE 2-3V INDICATIONS: persistent lower back pain TECHNIQUE: 3 views of the lumbar spine were acquired. COMPARISON: None. FINDINGS: Bones: 5 [id number] vertebrae are present. There is normal bony alignment. No acute vertebral body compression fractures. No suspicious bony lesions. Multilevel spondylosis most severe at the thoracolumbar junction. Soft tissues: Overlying bowel gas pattern is normal. No suspicious soft tissue calcifications. IMPRESSION: Lumbar spine without acute osseous abnormalities. Multilevel spondylosis most pronounced at the thoracolumbar junction. Dictated by: Yousif Stratton M.D. on 07/21/2022 at 16:58 Approved by: Yousif Stratton M.D. on 07/21/2022 at 17:00
== END ==
PROVIDERS: PCP Family Medicine; Referring Provider Family Medicine; Visit Provider Family Medicine
DX: M47.25 Other spondylosis with radiculopathy, thoracolumbar region (principal); M54.50 Low back pain, unspecified; M99.03 Segmental and somatic dysfunction of lumbar region
CPT/HCPCS: 72100

== ENCOUNTER → 2022-07-29 11:03 | Outpatient (CLI) | payer OTHER, MEDICAID, SELFPAY ==
[2022-07-29 11:29] LABS: Add Manual Diff / Slide Review NO; Basophils Absolute Auto 100 /uL (0-100); Basophils Percent Auto 0.8 % (0-2); Eosinophils Absolute Auto 200 /uL (0-450); Eosinophils Percent Auto 2.5 % (2-4); Hematocrit 44.2 % (36-46); Hemoglobin 14.8 g/dL (12.0-16.0); Lymphocytes Absolute Auto 2800 /uL (1100-4500); Lymphocytes Percent Auto 30.8 % (25-40); Mean Corpuscular HGB Conc 33.5 % (30-36); Mean Corpuscular Hemoglobin 28.6 PG (26-34); Mean Corpuscular Volume 85.3 fL (80-100); Monocytes Absolute Auto 600 /uL (0-900); Monocytes Percent Auto 6.3 % (3-14); Neutrophils Absolute Auto 5500 /uL (1500-7000); Neutrophils Percent Auto 59.6 % (50-75); Platelet Count 334 X10^3/uL (150-400); Red Blood Cell Count 5.18 X10^6/uL (4.0-5.2); Red Cell Distribution Width 13.9 % (11.6-14.8); White Blood Cell Count 9.2 X10^3/uL (4.5-11.0)
[2022-07-29 11:53] LABS: Alanine Aminotransferase 17 IU/L (<35); Albumin Globulin Ratio 1.5 (1.0-2.8); Alkaline Phosphatase 90 U/L (38-126); Aspartate Aminotransferase 16 IU/L (14-36); BUN Creatinine Ratio 16.2 (6-22); Bilirubin Total 0.6 mg/dL (0.2-1.3); Blood Urea Nitrogen 12 mg/dL (7-17); Calcium 9.1 mg/dL (8.4-10.2); Carbon Dioxide 28 mmol/L (22-32); Chloride 101 mmol/L (98-107); Estimated Glomerular Filt Rate > 60 mL/min (>60); Globulin 2.7 g/dL (1.7-4.1); Glucose 94 mg/dL (70-100); Glucose 95 mg/dL (70-100); HEMOLYSIS < 15 (0-50); Potassium 4.3 mmol/L (3.4-5.1); Sodium 136 mmol/L (137-145); Total Protein 6.7 g/dL (6.3-8.2)
[2022-07-29 12:08] LABS: Follicle Stimulating Hormone 2.89 mIU/mL; Luteinizing Hormone 3.81 mIU/mL
[2022-07-29 12:12] LABS: Free T3, Triiodothyronine Free 4.33 pg/mL (2.77-5.27)
[2022-07-30 10:03] LABS: Insulin Level Total 9.1 uIU/mL (2.6-24.9)
== END ==
PROVIDERS: PCP Family Medicine; Referring Provider Obstetrics & Gynecology; Visit Provider Obstetrics & Gynecology
DX: N92.6 Irregular menstruation, unspecified (principal); E28.2 Polycystic ovarian syndrome; R11.0 Nausea; R42 Dizziness and giddiness
CPT/HCPCS: 36415; 80053; 82947; 83001; 83002; 83525; 84439; 84443; 84481; 85025

== ENCOUNTER → 2022-09-22 07:35 | Outpatient (CLI) | payer OTHER, MEDICAID, SELFPAY | PROVIDERS: Family Provider Family Medicine; PCP Family Medicine; Visit Provider Nurse Practitioner Family | DX: R30.0 Dysuria (principal) | CPT/HCPCS: 81002; 87086 ==

== ENCOUNTER 2022-09-27 12:31 | Emergency (ER) | payer OTHER, MEDICAID, SELFPAY ==
[2022-09-27 12:37] VITALS: BP 135/91
[2022-09-27 12:38] VITALS: PULSE 98; O2SAT 97
[2022-09-27 12:46] VITALS: BP 135/91; PULSE 99; RESP 22; TEMP 36.4; O2SAT 97; BMI 40.7
--- NOTE | 2022-09-27 12:49 | DI.RAD.S_ITS ---
PROCEDURE: XR CHEST 2V INDICATIONS: cough TECHNIQUE: 2 views of the chest were acquired. COMPARISON: [facility], CR, XR CHEST 1V, 09/09/2021, 15:46. FINDINGS: Surgical changes and devices: None. Lungs and pleura: Lung volumes are slightly low. No dense consolidation or pleural effusion. Mediastinum: Heart size is within normal limits. Bones and chest wall: No suspicious bony abnormalities. Soft tissues appear unremarkable. IMPRESSION: No acute radiographic abnormality. Slightly low lung volumes. Dictated by: Jim Harp M.D. on 09/27/2022 at 13:09 Approved by: Jim Harp M.D. on 09/27/2022 at 13:10
[2022-09-27] MEDS: ALBUTEROL/IPRATROPIUM 3 ML AMPUL INH (12:56)
--- NOTE | 2022-09-27 12:57 | ED_ITS ---
HPI - SOB/Dyspnea General Chief Complaint: Shortness of Breath/Dyspnea Stated Complaint: trouble breathing/asthma Time Seen by Provider: 09/27/22 12:46 Source: patient Mode of arrival: Ambulatory Limitations: no limitations History of Present Illness HPI Narrative: 37-year-old female nonsmoker with history of asthma presents with some increased wheezing and shortness of breath for the past few days. She states that more than asthma she has a bronchospastic elements to her respirations and any time she gets an upper respiratory infection she tends to become increasingly short of breath with wheezing. She states this started a week or so ago with relatively typical upper respiratory complaints including runny nose, nasal congestion what she describes as a sinus infection but has since moved into her chest. A deep breath illicits cough and on occasion she has produced yellowish sputum. She states it hurts to cough but she is otherwise absent of pain. She is not dizzy nor weak or lightheaded. She denies nausea, vomiting or diarrhea Related Data Previous Rx's Medication Instructions Recorded fluticasone propionate 50 1 spray intranasal DAILY PRN 09/01/21 mcg/actuation nasal allergy symptoms #16 grams spray,suspension acetaminophen 300 mg-codeine 30 mg 1 tab PO BID PRN cough #14 tabs 09/09/21 tablet ondansetron HCl 8 mg tablet 8 mg PO Q8H PRN nausea and 09/11/21 vomiting #60 tabs fluticasone furoate 50 1 inh inhalation DAILY #30 ea 09/22/21 mcg/actuation blister powder for inhalation montelukast 10 mg tablet 10 mg PO DAILY #90 tabs 06/07/22 benzonatate 100 mg capsule 100 mg PO BID-TID PRN cough #30 06/22/22 caps lidocaine 5 % topical patch 1 patch topical DAILY #15 ea 07/08/22 (Lidoderm) budesonide-formoterol HFA 160 2 puff inhalation Q12H #10.2 grams 07/21/22 mcg-4.5 mcg/actuation aerosol inhaler (Symbicort) hydrocodone 5 mg-acetaminophen 325 1 tab PO Q8H PRN pain #20 tabs 08/13/22 mg tablet methocarbamol 750 mg tablet 750 mg PO Q8H #45 tabs 08/13/22 famotidine 20 mg tablet 20 mg PO BID PRN heartburn #60 tabs 09/16/22 phenazopyridine 200 mg tablet 200 mg PO TID 6 doses #6 tabs 09/22/22 (Pyridium) albuterol sulfate 90 mcg/actuation 2 inh inhalation Q4H PRN shortness 09/27/22 breath activated powder inhaler of breath or wheezing #1 ea azithromycin 250 mg tablet See Rx Instructions PO .COMPLEX #6 09/27/22 tabs benzonatate 200 mg capsule 200 mg PO BID PRN cough #20 caps 09/27/22 ondansetron 4 mg disintegrating 4 mg PO TID-QID PRN nausea and 09/27/22 tablet vomiting #10 tabs prednisone 10 mg tablet See Rx Instructions .Route 09/27/22 .COMPLEX #30 tabs Allergies Allergy/AdvReac Type Severity Reaction Status Date / Time sulfamethoxazole Allergy Verified 09/22/22 07:34 [From ] trimethoprim [From ] Allergy Verified 09/22/22 07:34 Review of Systems Review of Systems Narrative: GENERAL: See HPI HEENT: See HPI RESPIRATORY: See HPI CARDIOVASCULAR: Denies chest pain, palpitations, orthopnea, edema, GASTROINTESTINAL: Denies nausea, vomiting, abdominal pain, diarrhea, constipation, melena. : Denies dysuria, frequency, incontinence, hematuria, urinary retention. MUSCULOSKELETAL: denies weakness, joint pain, or bony pain SKIN: Denies rash, skin lesions, or other NEUROLOGIC: Denies weakness, headache, numbness, change in speech, confusion, seizures, incoordination. PSYCHIATRIC: No concerning psychosocial issues. 12 point review of systems is negative except for those stated above Patient History Medical History Abdominal bloating Abnormal weight gain Acute bilateral thoracic back pain Acute lumbar back pain Acute pain of right lower extremity Allergies Anxiety Asthma BMI 39.0-39.9,adult Change in stool habits Chronic lumbar pain Chronic neck pain Chronic right shoulder pain Chronic thoracic back pain Complete proximal hamstring tendon rupture Depression Dietary counseling Episodic lightheadedness External hemorrhoids Family history of breast cancer in mother Lumbar region somatic dysfunction Migraines Morbid obesity Nausea Pelvic somatic dysfunction Sacral region somatic dysfunction Somatic dysfunction of lower extremity Spondylosis, lumbar, with myelopathy Thoracic region somatic dysfunction Torn ACL Surgical History History of placement of ear tubes History of repair of ACL (03/19/19) History of tonsillectomy [place] teeth extracted Social History household members: significant other and family Smoking Status: Never smoker alcohol intake: current Smoking Status: Never smoker alcohol intake frequency: holidays/special occasions only Substance Use Type: does not use Exam Narrative Exam Narrative: GENERAL: [37] year old patient appears stated age. Well-developed patient, in mild distress. HEAD: Atraumatic. Normocephalic. EYES: Pupils equal round and reactive. Extraocular motions intact. No scleral icterus. No injection or drainage. ENT: Nose without bleeding, purulent drainage. Throat without erythema, tonsillar hypertrophy or exudate. Airway patent. NECK: Trachea midline. Non tender CARDIOVASCULAR: Regular rate and rhythm without murmurs, gallops, or rubs. RESPIRATORY: Clear to auscultation. Breath sounds equal bilaterally. No wheezes, rales, or rhonchi. GASTROINTESTINAL: Abdomen soft, non-tender, nondistended. EXTREMITIES: No edema or joint tenderness. BACK: Nontender without deformity or crepitance. No flank tenderness. NEURO: AOx3. SKIN: No rash or erythema of visible areas Initial Vital Signs Initial Vital Signs: Vital Signs Blood Pressure 135/91 H 09/27/22 12:37 Course Course Course Narrative: Patient without any significant obvious abnormal lung sounds on exam but does admit that she feels much better after DuoNeb Orders Ordered: Discontinued Medications Albuterol/Ipratropium (Albuterol/Ipratropium 3 Ml Ampul) 3 ml INH NOW ONE Stop: 09/27/22 12:51 Last Admin: 09/27/22 12:56 Dose: 3 ml Documented By: KHANG Vital Signs Vital signs: Vital Signs - 8 hr 09/27/22 12:46 09/27/22 12:37 09/27/22 12:38 Temperature 97.6 F Pulse Rate 99 H 98 H Respiratory Rate 22 Blood Pressure 135/91 H 135/91 H Pulse Oximetry 97 97 Oxygen Delivery Method Room Air MDM - SOB/Dyspnea Lab Data Labs: Lab Results 09/27/22 Range/Units 12:53 SARS-CoV-2 (PCR) Negative (Negative) Influenza A (RT-PCR) Flu a negative (NEGATIVE) Influenza B (RT-PCR) Flu b negative (NEGATIVE) RSV (PCR) Negative (Negative) MDM Narrative Medical decision making narrative: [37-year-old female with history of bronchospasm and recent upper respiratory infection] Multiple etiologies for patient's symptoms considered including, but not limited to: [COVID, flu, RSV, atypical pneumonia] Prior Charts reviewed: Multiple prior notes reviewed in the EMR Labs reviewed and interpreted by myself: Imaging reviewed: Consultations: Patient's symptoms improved over duration of stay with above-stated therapies. Findings and discharge diagnosis discussed with patient/family followed by verbalization of understanding Return precautions discussed with patient/family whom verbalize understanding of diagnosis and plan Discharge Plan Departure Patient Disposition: Home Clinical Impression: Atypical pneumonia Instructions: DI for Atypical Pneumonia Activity Restrictions/Additional Instructions: *You have been diagnosed with [atypical pneumonia and bronchospasm] *What to do: *Please continue to take your regular medications as directed. [ x] New medication prescriptions sent to your pharmacy: [ [facility]] [ ] New medication written as a paper prescription [ ] No new medications given *Please follow up with your primary care provider in 2-3 days, call for an appointment. Let them know you were seen in the Emergency Department and that we ask that you be seen in follow up. We will electronically transmit a record of today's note if your PCP is in our system *Return to Emergency Department if you should have any new, worsening or concerning symptoms, such as [fever greater than 101 F, shaking chills, worsening pain, persistent vomiting or other bothersome symptoms] Prescriptions: New benzonatate 200 mg capsule 200 mg PO BID PRN (Reason: cough) Qty: 20 0RF prednisone 10 mg tablet See Rx Instructions .ROUTE .COMPLEX Qty: 30 0RF Rx Instructions: Day 1,2,3: 40mg PO Daily Day 4,5,6: 30mg PO Daily Day 7,8,9: 20mg PO Daily Day 10,11,12: 10mg PO Daily #30 azithromycin 250 mg tablet See Rx Instructions .ROUTE .COMPLEX Qty: 6 0RF Rx Instructions: For 250 mg dose pack: take 500 mg today (day 1), then 250 mg for 4 days (days 2-5) albuterol sulfate 90 mcg/actuation aerosol powdr breath activated 2 inh INHALATION Q4H PRN (Reason: shortness of breath or wheezing) Qty: 1 0RF Rx Instructions: administer with spacer ondansetron 4 mg tablet,disintegrating 4 mg PO TID-QID PRN (Reason: nausea and vomiting) Qty: 10 0RF No Action benzonatate 100 mg capsule 100 mg PO BID-TID PRN (Reason: cough) Qty: 30 0RF phenazopyridine [Pyridium] 200 mg tablet 200 mg PO TID 0 Days Qty: 6 0RF fluticasone furoate 50 mcg/actuation blister with device 1 inh inhalation DAILY Qty: 30 1RF montelukast 10 mg tablet 10 mg PO DAILY Qty: 90 3RF famotidine 20 mg tablet 20 mg PO BID PRN (Reason: heartburn) Qty: 60 5RF ondansetron HCl 8 mg tablet 8 mg PO Q8H PRN (Reason: nausea and vomiting) Qty: 60 1RF methocarbamol 750 mg tablet 750 mg PO Q8H Qty: 45 11RF hydrocodone-acetaminophen 5-325 mg tablet 1 tab PO Q8H PRN (Reason: pain) Qty: 20 0RF budesonide-formoterol [Symbicort] 160-4.5 mcg/actuation HFA aerosol inhaler 2 puff inhalation Q12H Qty: 10.2 11RF fluticasone propionate 50 mcg/actuation spray,suspension 1 spray intranasal DAILY PRN (Reason: allergy symptoms) Qty: 16 0RF Rx Instructions: administer into each nostril acetaminophen-codeine 300-30 mg tablet 1 tab PO BID PRN (Reason: cough) Qty: 14 0RF lidocaine [Lidoderm] 5 % adhesive patch,medicated 1 patch topical DAILY Qty: 15 0RF Rx Instructions: leave on most painful area for up to 12 hrs Referrals: Simba Coombs DO [Primary Care Provider] - Stand Alone Forms: Patient Portal/API
[2022-09-27 13:00] VITALS: PULSE 94; RESP 18; O2SAT 99
[2022-09-27 13:02] VITALS: BP 139/87; PULSE 106; RESP 18; O2SAT 98
[2022-09-27 18:10] LABS: Influenza A - CEPHEID Flu A NEGATIVE (NEGATIVE); Influenza B - CEPHEID Flu B NEGATIVE (NEGATIVE); Respiratory Syncytial Virus Negative (Negative)
[2022-09-27 18:11] LABS: COVID-19 CEPHEID 4-PLEX PCR Negative (Negative)
== END 2022-09-27 13:33 | disposition home or self-care (01) ==
PROVIDERS: Emergency Provider Emergency Medicine; Family Provider Family Medicine; PCP Family Medicine
DX: J18.9 Pneumonia, unspecified organism (principal); Z20.822 Contact with and (suspected) exposure to COVID-19
CPT/HCPCS: 0241U; 71046; 94640; 99283

== ENCOUNTER 2022-11-18 11:21 | Day surgery (SDC) | payer OTHER, MEDICAID, SELFPAY ==
--- NOTE | 2022-11-18 | PATH_ITS ---
[facility] Accession Number: [id number] No. of containers..01 Tissue . 01 Material submitted: . endometrium - ENDOMETRIAL CURETTINGS . 01 Diagnosis: Endometrial Curettings: Portions of proliferative endometrium with regions of stromal breakdown; negative for glandular hyperplasia, cytologic atypia or malignancy. MRV 11/24/2022 1343 Local . 01 Electronically signed: . Shannon Talbert MD, Pathologist NPI- [id number] . 01 Gross description: . ENDOMETRIAL CURETTINGS: Received in formalin are minute fragments of mucoid and hemorrhagic material measuring 2.7 x 2.2 x 0.1 cm in aggregate. Submitted in toto in 1 cassette. /CPE 11/19/2022 0645 Local . 01 Pathologist provided ICD-10: N89.0 . 01 CPT . 966037 Specimen Comment: A courtesy copy of this report has been sent to [phone] Performed at: 01 [facility] [address] [place] [address] [address], [place], [place] [id number] MD Rafi Lam MD Phone: [phone]
[2022-11-18] MEDS: LACTATED RINGERS 1,000 ML 100 ML IV (11:59)
[2022-11-18 12:11] VITALS: BP 135/91; PULSE 105; RESP 22; TEMP 36.5; O2SAT 96; BMI 39.1
--- NOTE | 2022-11-18 13:58 | P.HPOB_ITS ---
History of Present Illness History of Present Illness Reason for admission: vaginal bleeding (Heavy) Narrative: Aicha Harris is a 37 year old female 0 who presents for a D&C hysteroscopy with polypectomy. This is being done due to heavy vaginal bleeding with her menstrual cycles. [facility] Medical History (Updated 10/12/22 @ 00:00 by ) Abdominal bloating Abnormal weight gain Acute bilateral thoracic back pain Acute lumbar back pain Acute pain of right lower extremity Acute sinus infection Allergies Anxiety Asthma BMI 39.0-39.9,adult Change in stool habits Chronic lumbar pain Chronic neck pain Chronic right shoulder pain Chronic thoracic back pain Complete proximal hamstring tendon rupture Depression Dietary counseling Episodic lightheadedness External hemorrhoids Family history of breast cancer in mother Lumbar region somatic dysfunction Migraines Morbid obesity Nausea Pelvic somatic dysfunction Sacral region somatic dysfunction Somatic dysfunction of lower extremity Spondylosis, lumbar, with myelopathy Thoracic region somatic dysfunction Torn ACL Traumatic ecchymosis of toe of right foot Surgical History History of placement of ear tubes History of repair of ACL (03/19/19) History of tonsillectomy [place] teeth extracted Social History household members: significant other and family Smoking Status: Never smoker alcohol intake: current Meds Home Medications and Allergies Home Medications Medication Instructions Recorded Confirmed Type montelukast 10 mg tablet 10 mg PO DAILY #90 tabs 06/07/22 11/18/22 Rx budesonide-formoterol HFA 160 2 puff inhalation Q12H #10.2 grams 07/21/22 11/18/22 Rx mcg-4.5 mcg/actuation aerosol inhaler (Symbicort) famotidine 20 mg tablet 20 mg PO BID PRN heartburn #60 tabs 09/16/22 11/18/22 Rx albuterol sulfate 90 mcg/actuation 2 inh inhalation Q4H PRN shortness 09/27/22 11/18/22 Rx breath activated powder inhaler of breath or wheezing #1 ea ondansetron 4 mg disintegrating 4 mg PO TID-QID PRN nausea and 09/27/22 11/18/22 Rx tablet vomiting #10 tabs tens unit #1 ea 02/28/23 02/28/23 Rx rimegepant 75 mg disintegrating 75 mg PO DAILY PRN Migraine 11/18/22 11/18/22 History tablet (Nurtec ODT) Headache Allergies Allergy/AdvReac Type Severity Reaction Status Date / Time sulfamethoxazole Allergy Verified 11/18/22 12:03 [From ] trimethoprim [From ] Allergy Verified 11/18/22 12:03 Exam Vital Signs (past 8 hours): - 11/18/22 12:11 Temperature 97.7 F Pulse Rate 105 H Respiratory Rate 22 Blood Pressure 135/91 H Pulse Oximetry 96 Oxygen Delivery Method Room Air Oxygen Delivery Method Room Air Narrative Exam Narrative: HEENT: No thyromegaly, no anterior cervical or supraclavicular lymphadenopathy. Lungs:Clear to auscultation bilaterally, no wheezes. Cardiovascular: Regular rate and rhythm, no murmurs, rubs, or gallops. Abdomen: No scars. No hepatosplenomegaly. No masses palpable. External genitalia: Normal Vagina: Normal Cervix: Normal Bimanual exam: 7 Week size anterior uterus. Mobile. No adnexal masses or tenderness Extremities: No edema Assessment & Plan Assessment & Plan narrative: Assessment: 37-year-old 0 with menorrhagia, thickened endometrial lining consistent with a polyp Plan: D&C hysteroscopy with resection of polyp The risks, benefits, and alternatives to the procedure were explained to the patient. The risks including bleeding, infection, and uterine perforation. She understands these risks and agrees to proceed. A full par Q was held and consent form was signed. Time Spent With Patient Time with patient: less than 30 minutes
--- NOTE | 2022-11-18 14:00 | PM.PREOP ---
Pre-operative Note COVID-19 Criteria for continued procedure: Non-surgical alternatives not available or appropriate per current SOC Interval Note History & Physical reviewed/Exam performed by Physician: Yes Changes to H&P: No H&P completed within 30 days and has changed as indicated here:: 11/18/22
--- NOTE | 2022-11-18 14:26 | SUR.OPER ---
Lithotomy on padded OR bed, head on pillow, arms secured on padded arm boards at <90 degrees abduction. Legs secured in padded yellow fins stirrups.
--- NOTE | 2022-11-18 14:48 | PM.GYNOP.1 ---
Operative Date/Time/Diagnoses Date of procedure: 11/18/22 Time of procedure: 14:48 Pre-op diagnosis: Menorrhagia Endometrial hyperplasia Post-op diagnosis: same Procedure & Clinicians Procedure: Procedures Operation Date: 11/18/22 12:45 Actual Procedure Side Surgeon p D&C Hysteroscopy/polypectomy Anita Goddard MD Indications: Menorrhagia Endometrial hyperplasia Surgeon: Anita Goddard Anesthesia Type: General (LMA) Operative Notes Findings: 7 wk size anteverted uterus both Fallopian tube ostia observed Very thickened endometrial lining No polyp seen Closure Type: not applicable Specimen(s): endometrial curettings Estimated blood loss (mL): 20 Blood products transfused: none Procedure in detail: After informed consent was obtained, the patient was taken to the operating room where she was placed in the dorsal supine position. After adequate LMA general anesthesia was achieved, she was placed in the dorsal lithotomy position, and prepped and draped in the usual sterile fashion. A time-out was performed. A bivalve speculum was placed into the vagina and the anterior lip of the cervix was grasped with a single-tooth tenaculum. The cervical os was sequentially dilated until the hysteroscope could pass easily into the endometrial cavity. Initial inspection of the uterine cavity revealed a very thickened endometrial lining throughout. There were no polyps visualized. Both fallopian tube ostia were observed. The hysteroscope was removed from the uterus. Sharp curettage was performed yielding a large amount of endometrial curettings. The instruments were removed from the uterus. The single-tooth tenaculum was removed from the anterior lip of the cervix. The bivalve speculum was removed from the vagina. Sponge, lap, and instrument counts were correct x2. The patient tolerated the procedure well, and was taken to PACU in stable condition. Complications: none Post-operative Condition: stable Disposition: PACU Plan for aftercare: Home after recovery
[2022-11-18 14:51] VITALS: BP 119/83; PULSE 102; RESP 16; TEMP 37; O2SAT 98
[2022-11-18 14:53] VITALS: BP 130/86; PULSE 91; RESP 12; O2SAT 92
[2022-11-18 14:57] VITALS: BP 134/90; PULSE 97; RESP 13; O2SAT 93
[2022-11-18 15:03] VITALS: BP 130/85; PULSE 90; RESP 12; TEMP 36.2; O2SAT 94
[2022-11-18 15:14] VITALS: BP 130/85; PULSE 94; RESP 12; O2SAT 94
== END 2022-11-18 15:16 | disposition home or self-care (01) ==
PROVIDERS: Family Provider Family Medicine; PCP Family Medicine; Referring Provider Obstetrics & Gynecology; Visit Provider Obstetrics & Gynecology
PROC: 0UDB8ZZ Extraction of Endometrium, Via Natural or Artificial Opening Endoscopic (ICD-10-PCS; CPT 58558; principal; 2022-11-18 12:45)
DX: N92.0 Excessive and frequent menstruation with regular cycle (principal); N85.00 Endometrial hyperplasia, unspecified
CPT/HCPCS: 58558; J1100; J1885; J2250; J2405; J2704; J3010

== ENCOUNTER 2022-12-13 16:30 | Outpatient (RCR) | payer OTHER, MEDICAID, SELFPAY ==
--- NOTE | 2022-08-25 17:35 | PT.OIE ---
Current Diagnoses Low back pain, unspecified (08/25/22) Past Medical History (Last Updated 07/22/22 @ 15:11 by Simba Coombs DO) Abdominal bloating Abnormal weight gain Acute bilateral thoracic back pain Acute lumbar back pain Acute pain of right lower extremity Allergies Anxiety Asthma BMI 39.0-39.9,adult Change in stool habits Chronic right shoulder pain Complete proximal hamstring tendon rupture Depression Dietary counseling Episodic lightheadedness External hemorrhoids Family history of breast cancer in mother Lumbar region somatic dysfunction Migraines Morbid obesity Nausea Pelvic somatic dysfunction Sacral region somatic dysfunction Somatic dysfunction of lower extremity Spondylosis, lumbar, with myelopathy Thoracic region somatic dysfunction Torn ACL Past Surgical History (Last Reviewed 07/08/22 @ 19:59 by Aggie Traore [facility]) History of placement of ear tubes History of repair of ACL (03/19/19) History of tonsillectomy [place] teeth extracted Visit Care Team Role Provider Type Simba Coombs DO Family Provider Physician Primary Care Provider Specialty: [facility] Address: [address] [place] [address], [id number] Email: Renee Walker DO Attending Provider Physician Referring Provider Specialty: [facility] Address: [address] [place] [address], [address], [place], [address] Phone: Fax: Email: Physical Therapy Initial Evaluation PT-OP-A Visit Information Start: 08/23/22 17:11 Freq: Status: Active Protocol: Document 08/25/22 14:30 AW (Rec: 08/23/22 17:17 AW [id number]) Out-Patient Physical Therapy Visit Information Visit Information Visit Type Initial Evaluation Visit Start Time 13:00 Visit Stop Time 13:45 Total Visit Minutes 45 Visit Number 1 Evaluation Information Evaluation Date 08/25/22 PT-OP-B Current Condition Start: 08/23/22 17:11 Freq: Status: Active Protocol: Document 08/25/22 14:30 AW (Rec: 08/23/22 17:17 AW [id number]) Current Condition History of Current Condition Onset Date July 2022 Current Complaints back pain - low back to neck, bilateral hip pain History of Current Condition Aicha states she was moving things around in her storage unit in late June. At work a few days later, she developed pain so severe she was barely able to move. Her pain seems to originate in her low back but radiates up to her mid back and neck as well as down to her posterior hips. She denies pain below the hip. She went to ED in early July and found IM toradol and prednisone somewhat effective. She is still having severe pain, rating it at about 8/10 generally. Her pain limits her sitting, standing, and walking tolerance. She is able to do any of these things for ~10 minutes but prefers to change position frequently. She prefers to sleep on her stomach and finds this is generally the most comfortable position but has not been able to sleep more than ~4 hours per night due to pain. Aicha has history of ACL reconstruction on both knees ( 2018 and 2020). She was satisfied with her rehab after both surgeries. She denies history of significant back pain prior to this episode. She has been unable to work for over a month now due to her pain. 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 Prior Treatments and Tests 07/21/22 Lumbar spine x-ray: Lumbar spine without acute osseous abnormalities. Multilevel spondylosis most pronounced at the thoracolumbar junction. Future Testing and Treatments Planned Hoping for advanced imaging. Treatment Goals Patient/Caregiver Goals Be able to stand and do dishes . Return to work - lift, bend, squat, stand 8-10 hours. Get some quality sleep. PT-OP-C Subjective Start: 08/23/22 17:11 Freq: Status: Active Protocol: Document 08/25/22 14:30 AW (Rec: 08/25/22 15:01 AW [id number]) Patient Questionnaires Oswestry Low Back Index Oswestry Score 68 Oswestry Impairment 60 to 79% Impaired (Score 60- 79) OP-PT Pain Assessment Pain Assessment Grid Paper Pain Assessment Grid Completed Yes: Scanned to EMR PT-OP-D Balance Start: 08/23/22 17:11 Freq: Status: Active Protocol: Document 08/25/22 14:30 AW (Rec: 08/25/22 15:01 AW [id number]) Balance Tests Single Limb Standing Single Limb- Right 10 sec Single Limb- Left 10 sec PT-OP-F Manual Assessment Start: 08/23/22 17:11 Freq: Status: Active Protocol: Document 08/25/22 14:30 AW (Rec: 08/25/22 15:01 AW [id number]) Manual Assessments Soft Tissue Assessment Soft Tissue Mobility Assessment HS length deficient as noted in ROM. TFL/ITB tight with positive Wilian's. Pt is tender to palpation at bilateral lumbar paraspinals. Joint Mobility Assessment Joint Mobility Assessment Notable hinge at L3. Very limited PA's at L3-L5 and at T1-T4. PT-OP-G Mobility & Gait Start: 08/23/22 17:11 Freq: Status: Active Protocol: Document 08/25/22 14:30 AW (Rec: 08/25/22 15:01 AW [id number]) OP Gait Assessment Comments Gait Comments Pt walks with wide KSENIA, slight genu valgum, and slightly excessive ER bilaterally. Generally steady. Pt is climbing stairs with step to pattern and definite use of railing. PT-OP-J Posture/Palpation/Skin Start: 08/23/22 17:11 Freq: Status: Active Protocol: Document 08/25/22 14:30 AW (Rec: 08/25/22 15:16 AW [id number]) Posture Evaluation Position Standing Head/C-Spine Posture Forward Head T-Spine Posture Increased Kyphosis L-Spine Posture Increased Lordosis Weight Distribution Weight Shifted Left Knee Posture (L) Genu Valgus,(R) Genu Valgus Comments Posture Comments Increased lordosis of the lumbar spine and suggestion of dowagers hump in the upper thoracic spine PT-OP-K Range of Motion Start: 08/23/22 17:11 Freq: Status: Active Protocol: Document 08/25/22 14:30 AW (Rec: 08/25/22 14:52 AW [id number]) Lumbar Spine Range of Motion Lumbar Spine Active Testing Position Standing Flexion 15 Extension 10 ROM Limitations Soft Tissue Tightness,Pain, Swelling Comments Side bend is extremely limited bilaterally with pt only able to slide her fingers down her leg a few inches. Rotation is <25% with pelvis not fixed, extremely limited with hips fixed. Hip Goniometric Range of Motion Hip bilat Hip ROM WFL Yes Hip ROM Limitations Comments Hip flexion WNL with knees bent. HS length is limited with passive SLR ~40 degrees short of 90. IR:ER ratio is ~2 :3 with good excursion. No pain reported except at end- range IR on the right. PT-OP-L Special Tests Start: 08/23/22 17:11 Freq: Status: Active Protocol: Document 08/25/22 14:30 AW (Rec: 08/25/22 15:16 AW [id number]) Special Tests Lumbar Spine Special Tests Manual Traction Test Results no change in symptoms Straight Leg Raise Test Results ASLR positive for increased back pain Comments better with compression through sides of pelvis Compression Test Results positive for increased back pain PT-OP-M Strength Start: 08/23/22 17:11 Freq: Status: Active Protocol: Document 08/25/22 14:30 AW (Rec: 08/25/22 17:34 AW [id number]) Hip Strength Hip Manual Muscle Testing Left Flexion (L2) 4 Good Extension (S1) 4 Good Abduction 4- Good- External Rotation 4+ Good+ Internal Rotation 4+ Good+ Right Flexion (L2) 4 Good Extension (S1) 4- Good- Abduction 3+ Fair+ External Rotation 4 Good Internal Rotation 4+ Good+ Knee Strength Knee Manual Muscle Testing Bilateral Flexion (S2) 4+ Good+ Extension (L3) 4+ Good+ Comments Pt has history of bilateral ACL repair and appears to be somewhat self-limiting with MMT due to apprehension. Ankle/Foot Strength Ankle and Foot Manual Muscle Testing Bilateral Dorsiflexion (L4) 4+ Good+ Plantarflexion (S1) 4 Good Comments PF tested with single leg heel lifts. Pt able to complete 6 reps with good elevation bilaterally. Toe Strength Toe Manual Muscle Testing Great Toe Flexion 5 Normal Extension 5 Normal PT-OP-Q Treatments Start: 08/23/22 17:11 Freq: Status: Active Protocol: Document 08/25/22 14:30 AW (Rec: 08/25/22 17:34 AW [id number]) Therapeutic Exercises Supine Exercises LTR Supine Exercise Name LTR Side bilateral Comments painful even with minimal excursion; dc'ed pelvic tilt Supine Exercise Name pelvic tilt - posterior Reps/Minutes 5 SH x 10 Comments cued TrA activation Prone Exercises child's pose Prone Exercise Name child's pose Comments propped on elbows; unable to extend arms due to pain Manual Therapy Treatment Soft Tissue Mobilization lumbar paraspinals Body Location lumbar paraspinals Mobilization Type Rolling,Strumming Intensity/Depth Moderate Body Position Prone Joint Mobilizations lumbar PA's Joint L3-5 Direction P>A Grade III Body Position Prone Comments good feedback/response from pt PT-OP-T Assessment and Plan Start: 08/23/22 17:11 Freq: Status: Active Protocol: Document 08/25/22 14:30 AW (Rec: 08/25/22 17:34 AW [id number]) Physical Therapy Assessment Rehab Potential Rehabilitation Potential Good Evaluation Complexity Number of Personal Factors/Comorbidities 1-2 Number of Body Systems Impaired 1-2 Clinical Presentation at Evaluation Evolving Impairments Impairments Balance,Gait,Pain,Posture,ROM, Sensation,Soft Tissue Mobility ,Strength Goals Five Impairment strength Short Term Goal (STG) Pt will improve bilateral hip abduction strength to 4/5 or greater to improve her gait mechanics STG Duration 09/29/22 Mcc Goal (LTG) Pt will complete 12 reps or more on 30 Second Sit to Stand as a measure of improved LE strength LTG Duration 11/05/22 Four Impairment interrupted sleep Mcc Goal (LTG) Pt will sleep at least 6 restful hours 4/7 days per week. LTG Duration 11/05/22 Three Impairment standing tolerance is limited Short Term Goal (STG) Pt will tolerate standing for 10 minutes with 4/10 or less pain so that she can wash dishes standing at her sink STG Duration 09/29/22 Pan Washer Goal (LTG) Pt will tolerate being on her feet at least one hour with 3/ 10 or less pain to improve her ability to engage with work responsibilities LTG Duration 11/05/22 Two Impairment painful lumbar mobility Short Term Goal (STG) Pt will tolerate 50% lumbar rotation with pain 4/10 or less STG Duration 09/29/22 Mcc Goal (LTG) Pt will tolerate 75% lumbar rotation with pain 3/10 or less LTG Duration 11/05/22 One Impairment lacks HEP Short Term Goal (STG) Pt will be instructed in HEP for lumbar mobility, core stabilization, and hip strength to support therapy services provided in clinic STG Duration 09/29/22 LTG Duration 11/05/22 Assessment Summary Assessment Aicha is a 37 yo woman who attends physical therapy with compaints of low back pain radiating up her spine and into her posterior hips for >1 .5 months. Her lumbar mobility is severely limited and painful. She has significant lumbar lordosis with an apparent hinge at L3, hypomobility of spinal segments below L3, and weakness of bilateral hips which is worst in abduction and extension. She needs to be able to stand long periods, squat, and lift to do her work in a [employer]. She is expected to benefit from skilled therapy to reduce her pain symptoms, improve her lumbar mobility, promote core stabilization, and improve her hip strength for improved standing and walking tolerance . Physical Therapy Plan Frequency and Duration Frequency of Treatment 2x/Week Plan of Care Start Date 08/25/22 Plan of Care End Date 11/05/22 Therapeutic Interventions Therapeutic Interventions Balance Training,Gait Training ,Home Exercise Program,Manual Therapy,Self-Care/Home Management,Soft Tissue Mobilization,Taping, Therapeutic Activities, Therapeutic Exercises Modalities Cold Pack/Ice Massage,Electric Stimulation,Hot Packs Next Visit Focus/Plan Next Note Type Treatment Note Next Visit Plan Change position frequently. Core stability progression in supine. Hip ER in sitting. STM (instrument-assisted?) and lumbar PA's in prone
--- NOTE | 2022-08-25 17:35 | PT.OPPOC ---
Physical, Occupational & Speech Therapy At [facility] Current Diagnoses Low back pain, unspecified (08/25/22) Visit Care Team Role Provider Type Simba Coombs DO Family Provider Physician Primary Care Provider [place]ty[place] [facility] [place] Address: [address] [place] [address], [id number] Email: Renee Walker DO Attending Provider Physician Referring Provider Specialty: [facility] Address: [address] [place] [address], [address], [place], [address] Phone: Fax: Email: [email or web address] Plan Of Care PT-OP-T Assessment and Plan Start: 08/23/22 17:11 Freq: Status: Active Protocol: Document 08/25/22 14:30 AW (Rec: 08/25/22 17:34 AW [id number]) Physical Therapy Assessment Rehab Potential Rehabilitation Potential Good Evaluation Complexity Number of Personal Factors/Comorbidities 1-2 Number of Body Systems Impaired 1-2 Clinical Presentation at Evaluation Evolving Impairments Impairments Balance,Gait,Pain,Posture,ROM, Sensation,Soft Tissue Mobility ,Strength Goals Five Impairment strength Short Term Goal (STG) Pt will improve bilateral hip abduction strength to 4/5 or greater to improve her gait mechanics STG Duration 09/29/22 Longterm Goal (LTG) Pt will complete 12 reps or more on 30 Second Sit to Stand as a measure of improved LE strength LTG Duration 11/05/22 Four Impairment interrupted sleep Cardiologist Goal (LTG) Pt will sleep at least 6 restful hours 4/7 days per week. LTG Duration 11/05/22 Three Impairment standing tolerance is limited Short Term Goal (STG) Pt will tolerate standing for 10 minutes with 4/10 or less pain so that she can wash dishes standing at her sink STG Duration 09/29/22 Longterm Goal (LTG) Pt will tolerate being on her feet at least one hour with 3/ 10 or less pain to improve her ability to engage with work responsibilities LTG Duration 11/05/22 Two Impairment painful lumbar mobility Short Term Goal (STG) Pt will tolerate 50% lumbar rotation with pain 4/10 or less STG Duration 09/29/22 Cardiologist Goal (LTG) Pt will tolerate 75% lumbar rotation with pain 3/10 or less LTG Duration 11/05/22 One Impairment lacks HEP Short Term Goal (STG) Pt will be instructed in HEP for lumbar mobility, core stabilization, and hip strength to support therapy services provided in clinic STG Duration 09/29/22 LTG Duration 11/05/22 Assessment Summary Assessment Aicha is a 37 yo woman who attends physical therapy with compaints of low back pain radiating up her spine and into her posterior hips for >1 .5 months. Her lumbar mobility is severely limited and painful. She has significant lumbar lordosis with an apparent hinge at L3, hypomobility of spinal segments below L3, and weakness of bilateral hips which is worst in abduction and extension. She needs to be able to stand long periods, squat, and lift to do her work in a [employer]. She is expected to benefit from skilled therapy to reduce her pain symptoms, improve her lumbar mobility, promote core stabilization, and improve her hip strength for improved standing and walking tolerance . Physical Therapy Plan Frequency and Duration Frequency of Treatment 2x/Week Plan of Care Start Date 08/25/22 Plan of Care End Date 11/05/22 Therapeutic Interventions Therapeutic Interventions Balance Training,Gait Training ,Home Exercise Program,Manual Therapy,Self-Care/Home Management,Soft Tissue Mobilization,Taping, Therapeutic Activities, Therapeutic Exercises Modalities Cold Pack/Ice Massage,Electric Stimulation,Hot Packs Next Visit Focus/Plan Next Note Type Treatment Note Next Visit Plan Change position frequently. Core stability progression in supine. Hip ER in sitting. STM (instrument-assisted?) and lumbar PA's in prone Plan of Care Dates Plan of Care Start Date 08/25/22 Plan of Care End Date 11/05/22 Electronically Signed by: Julianne Brush, PT 08/25/22 [id number] If you are in agreement with this Plan of Care, please return a signed and dated copy. I have reviewed this Plan of Care and certify that the skilled therapy services above are required to meet the patient?s needs. Physician Signature Date Printed Name and Credentials Clinical Instructor Signature Printed Name and Credentials
--- NOTE | 2022-08-26 16:08 | PT.OTN ---
Current Diagnoses Low back pain, unspecified (08/25/22) Physical Therapy Treatment Note PT-OP-A Visit Information Start: 08/23/22 17:11 Freq: Status: Active Protocol: Document 08/26/22 15:16 AW (Rec: 08/26/22 16:07 AW [id number]) Out-Patient Physical Therapy Visit Information Visit Information Visit Type Treatment Note Visit Start Time 15:15 Visit Stop Time 16:10 Total Visit Minutes 55 Visit Number 2 Evaluation Information Evaluation Date 08/25/22 PT-OP-B Current Condition Start: 08/23/22 17:11 Freq: Status: Active Protocol: Document 08/25/22 14:30 AW (Rec: 08/23/22 17:17 AW [id number]) Current Condition History of Current Condition Onset Date July 2022 Current Complaints back pain - low back to neck, bilateral hip pain History of Current Condition Aicha states she was moving things around in her storage unit in late June. At work a few days later, she developed pain so severe she was barely able to move. Her pain seems to originate in her low back but radiates up to her mid back and neck as well as down to her posterior hips. She denies pain below the hip. She went to ED in early July and found IM toradol and prednisone somewhat effective. She is still having severe pain, rating it at about 8/10 generally. Her pain limits her sitting, standing, and walking tolerance. She is able to do any of these things for ~10 minutes but prefers to change position frequently. She prefers to sleep on her stomach and finds this is generally the most comfortable position but has not been able to sleep more than ~4 hours per night due to pain. Aicha has history of ACL reconstruction on both knees ( 2018 and 2020). She was satisfied with her rehab after both surgeries. She denies history of significant back pain prior to this episode. She has been unable to work for over a month now due to her pain. 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 Prior Treatments and Tests 07/21/22 Lumbar spine x-ray: Lumbar spine without acute osseous abnormalities. Multilevel spondylosis most pronounced at the thoracolumbar junction. Future Testing and Treatments Planned Hoping for advanced imaging. Treatment Goals Patient/Caregiver Goals Be able to stand and do dishes . Return to work - lift, bend, squat, stand 8-10 hours. Get some quality sleep. PT-OP-C Subjective Start: 08/23/22 17:11 Freq: Status: Active Protocol: Document 08/25/22 14:30 AW (Rec: 08/25/22 15:01 AW [id number]) Patient Questionnaires Oswestry Low Back Index Oswestry Score 68 Oswestry Impairment 60 to 79% Impaired (Score 60- 79) OP-PT Pain Assessment Pain Assessment Grid Paper Pain Assessment Grid Completed Yes: Scanned to EMR PT-OP-D Balance Start: 08/23/22 17:11 Freq: Status: Active Protocol: Document 08/25/22 14:30 AW (Rec: 08/25/22 15:01 AW [id number]) Balance Tests Single Limb Standing Single Limb- Right 10 sec Single Limb- Left 10 sec PT-OP-F Manual Assessment Start: 08/23/22 17:11 Freq: Status: Active Protocol: Document 08/25/22 14:30 AW (Rec: 08/25/22 15:01 AW [id number]) Manual Assessments Soft Tissue Assessment Soft Tissue Mobility Assessment HS length deficient as noted in ROM. TFL/ITB tight with positive Wilian's. Pt is tender to palpation at bilateral lumbar paraspinals. Joint Mobility Assessment Joint Mobility Assessment Notable hinge at L3. Very limited PA's at L3-L5 and at T1-T4. PT-OP-G Mobility & Gait Start: 08/23/22 17:11 Freq: Status: Active Protocol: Document 08/25/22 14:30 AW (Rec: 08/25/22 15:01 AW [id number]) OP Gait Assessment Comments Gait Comments Pt walks with wide KSENIA, slight genu valgum, and slightly excessive ER bilaterally. Generally steady. Pt is climbing stairs with step to pattern and definite use of railing. PT-OP-J Posture/Palpation/Skin Start: 08/23/22 17:11 Freq: Status: Active Protocol: Document 08/25/22 14:30 AW (Rec: 08/25/22 15:16 AW [id number]) Posture Evaluation Position Standing Head/C-Spine Posture Forward Head T-Spine Posture Increased Kyphosis L-Spine Posture Increased Lordosis Weight Distribution Weight Shifted Left Knee Posture (L) Genu Valgus,(R) Genu Valgus Comments Posture Comments Increased lordosis of the lumbar spine and suggestion of dowagers hump in the upper thoracic spine PT-OP-K Range of Motion Start: 08/23/22 17:11 Freq: Status: Active Protocol: Document 08/25/22 14:30 AW (Rec: 08/25/22 14:52 AW [id number]) Lumbar Spine Range of Motion Lumbar Spine Active Testing Position Standing Flexion 15 Extension 10 ROM Limitations Soft Tissue Tightness,Pain, Swelling Comments Side bend is extremely limited bilaterally with pt only able to slide her fingers down her leg a few inches. Rotation is <25% with pelvis not fixed, extremely limited with hips fixed. Hip Goniometric Range of Motion Hip bilat Hip ROM WFL Yes Hip ROM Limitations Comments Hip flexion WNL with knees bent. HS length is limited with passive SLR ~40 degrees short of 90. IR:ER ratio is ~2 :3 with good excursion. No pain reported except at end- range IR on the right. PT-OP-L Special Tests Start: 08/23/22 17:11 Freq: Status: Active Protocol: Document 08/25/22 14:30 AW (Rec: 08/25/22 15:16 AW [id number]) Special Tests Lumbar Spine Special Tests Manual Traction Test Results no change in symptoms Straight Leg Raise Test Results ASLR positive for increased back pain Comments better with compression through sides of pelvis Compression Test Results positive for increased back pain PT-OP-M Strength Start: 08/23/22 17:11 Freq: Status: Active Protocol: Document 08/25/22 14:30 AW (Rec: 08/25/22 17:34 AW [id number]) Hip Strength Hip Manual Muscle Testing Left Flexion (L2) 4 Good Extension (S1) 4 Good Abduction 4- Good- External Rotation 4+ Good+ Internal Rotation 4+ Good+ Right Flexion (L2) 4 Good Extension (S1) 4- Good- Abduction 3+ Fair+ External Rotation 4 Good Internal Rotation 4+ Good+ Knee Strength Knee Manual Muscle Testing Bilateral Flexion (S2) 4+ Good+ Extension (L3) 4+ Good+ Comments Pt has history of bilateral ACL repair and appears to be somewhat self-limiting with MMT due to apprehension. Ankle/Foot Strength Ankle and Foot Manual Muscle Testing Bilateral Dorsiflexion (L4) 4+ Good+ Plantarflexion (S1) 4 Good Comments PF tested with single leg heel lifts. Pt able to complete 6 reps with good elevation bilaterally. Toe Strength Toe Manual Muscle Testing Great Toe Flexion 5 Normal Extension 5 Normal PT-OP-Q Treatments Start: 08/23/22 17:11 Freq: Status: Active Protocol: Document 08/26/22 15:16 AW (Rec: 08/26/22 16:07 AW [id number]) Therapeutic Exercises Supine Exercises supine march Supine Exercise Name supine march - TrA Comments HEP glute bridge Supine Exercise Name glute bridge Resistance TB2 tied at knees Comments focus on pain free range Prone Exercises side bend Prone Exercise Name quadruped side bend Side bilateral cat cow Prone Exercise Name cat cow Comments cued hands under shoulders, knees under hips; HEP child's pose Prone Exercise Name child's pose Comments propped on elbows; unable to extend arms due to pain Manual Therapy Treatment Soft Tissue Mobilization lumbar paraspinals Body Location lumbar paraspinals and R superior glutw Mobilization Type Instrument Assisted,Rolling, Strumming Intensity/Depth Moderate Body Position Prone Comments Prone over body pillow. Used stainless steel tool (LEEF) along lumbar paraspinals in short strokes distal to proximal to improve blood flow and relieve muscle tension Joint Mobilizations lumbar PA's Joint L3-5 Direction P>A Grade III Body Position Prone Comments good feedback/response from pt PT-OP-R Modalities Start: 08/23/22 17:11 Freq: Status: Active Protocol: Document 08/26/22 15:16 AW (Rec: 08/26/22 16:08 AW [id number]) Hot Pack/Cold Pack Treatment Hot Pack Location lumbar Patient Position Prone Treatment Duration (minutes) 15 Patient Tolerance Good Comments prone over body pillow to end tx PT-OP-T Assessment and Plan Start: 08/23/22 17:11 Freq: Status: Active Protocol: Document 08/26/22 15:16 AW (Rec: 08/26/22 16:07 AW [id number]) Physical Therapy Assessment Impairments Impairments Balance,Gait,Pain,Posture,ROM, Sensation,Soft Tissue Mobility ,Strength Goals Five Impairment strength Short Term Goal (STG) Pt will improve bilateral hip abduction strength to 4/5 or greater to improve her gait mechanics STG Duration 09/29/22 Recreation Establishment Manager Goal (LTG) Pt will complete 12 reps or more on 30 Second Sit to Stand as a measure of improved LE strength LTG Duration 11/05/22 Four Impairment interrupted sleep Recreation Establishment Manager Goal (LTG) Pt will sleep at least 6 restful hours 4/7 days per week. LTG Duration 11/05/22 Three Impairment standing tolerance is limited Short Term Goal (STG) Pt will tolerate standing for 10 minutes with 4/10 or less pain so that she can wash dishes standing at her sink STG Duration 09/29/22 Recreation Establishment Manager Goal (LTG) Pt will tolerate being on her feet at least one hour with 3/ 10 or less pain to improve her ability to engage with work responsibilities LTG Duration 11/05/22 Two Impairment painful lumbar mobility Short Term Goal (STG) Pt will tolerate 50% lumbar rotation with pain 4/10 or less STG Duration 09/29/22 Mcfp Goal (LTG) Pt will tolerate 75% lumbar rotation with pain 3/10 or less LTG Duration 11/05/22 One Impairment lacks HEP Short Term Goal (STG) Pt will be instructed in HEP for lumbar mobility, core stabilization, and hip strength to support therapy services provided in clinic STG Duration 09/29/22 LTG Duration 11/05/22 Assessment Summary Assessment Aicha tolerated manual therapy well and noted slightly increased ability to rotate (LTR) in supine afterward. She was also able to do quadruped side bend after manual with no increase in pain. She benefits from some set up cues for quadruped activities. Physical Therapy Plan Frequency and Duration Frequency of Treatment 2x/Week Plan of Care Start Date 08/25/22 Plan of Care End Date 11/05/22 Therapeutic Interventions Therapeutic Interventions Balance Training,Gait Training ,Home Exercise Program,Manual Therapy,Self-Care/Home Management,Soft Tissue Mobilization,Taping, Therapeutic Activities, Therapeutic Exercises Modalities Cold Pack/Ice Massage,Electric Stimulation,Hot Packs Next Visit Focus/Plan Next Note Type Treatment Note Next Visit Plan Change position frequently. Core stability progression in supine. Hip ER in sitting. STM (instrument-assisted?) and lumbar PA's in prone
--- NOTE | 2022-08-31 15:59 | PT.OTN ---
Current Diagnoses Low back pain, unspecified (08/31/22) Physical Therapy Treatment Note PT-OP-A Visit Information Start: 08/23/22 17:11 Freq: Status: Active Protocol: Document 08/31/22 08:21 LRN (Rec: 08/31/22 09:08 LRN [id number]) Out-Patient Physical Therapy Visit Information Visit Information Visit Type Treatment Note Visit Start Time 08:21 Visit Stop Time 09:09 Total Visit Minutes 48 Visit Number 3 Evaluation Information Evaluation Date 08/25/22 Precautions Precautions R frozen shoulder since 08/2021 PT-OP-B Current Condition Start: 08/23/22 17:11 Freq: Status: Active Protocol: Document 08/25/22 14:30 AW (Rec: 08/23/22 17:17 AW [id number]) Current Condition History of Current Condition Onset Date July 2022 Current Complaints back pain - low back to neck, bilateral hip pain History of Current Condition Aicha states she was moving things around in her storage unit in late June. At work a few days later, she developed pain so severe she was barely able to move. Her pain seems to originate in her low back but radiates up to her mid back and neck as well as down to her posterior hips. She denies pain below the hip. She went to ED in early July and found IM toradol and prednisone somewhat effective. She is still having severe pain, rating it at about 8/10 generally. Her pain limits her sitting, standing, and walking tolerance. She is able to do any of these things for ~10 minutes but prefers to change position frequently. She prefers to sleep on her stomach and finds this is generally the most comfortable position but has not been able to sleep more than ~4 hours per night due to pain. Aicha has history of ACL reconstruction on both knees ( 2018 and 2020). She was satisfied with her rehab after both surgeries. She denies history of significant back pain prior to this episode. She has been unable to work for over a month now due to her pain. 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 Prior Treatments and Tests 07/21/22 Lumbar spine x-ray: Lumbar spine without acute osseous abnormalities. Multilevel spondylosis most pronounced at the thoracolumbar junction. Future Testing and Treatments Planned Hoping for advanced imaging. Treatment Goals Patient/Caregiver Goals Be able to stand and do dishes . Return to work - lift, bend, squat, stand 8-10 hours. Get some quality sleep. PT-OP-C Subjective Start: 08/23/22 17:11 Freq: Status: Active Protocol: Document 08/31/22 08:21 LRN (Rec: 08/31/22 09:08 LRN [id number]) OP-PT Subjective Patient Comments Patient Comments No changes. [place] the scaping and massage was helpful. PT-OP-D Balance Start: 08/23/22 17:11 Freq: Status: Active Protocol: Document 08/25/22 14:30 AW (Rec: 08/25/22 15:01 AW [id number]) Balance Tests Single Limb Standing Single Limb- Right 10 sec Single Limb- Left 10 sec PT-OP-F Manual Assessment Start: 08/23/22 17:11 Freq: Status: Active Protocol: Document 08/25/22 14:30 AW (Rec: 08/25/22 15:01 AW [id number]) Manual Assessments Soft Tissue Assessment Soft Tissue Mobility Assessment HS length deficient as noted in ROM. TFL/ITB tight with positive Wilian's. Pt is tender to palpation at bilateral lumbar paraspinals. Joint Mobility Assessment Joint Mobility Assessment Notable hinge at L3. Very limited PA's at L3-L5 and at T1-T4. PT-OP-G Mobility & Gait Start: 08/23/22 17:11 Freq: Status: Active Protocol: Document 08/25/22 14:30 AW (Rec: 08/25/22 15:01 AW [id number]) OP Gait Assessment Comments Gait Comments Pt walks with wide KSENIA, slight genu valgum, and slightly excessive ER bilaterally. Generally steady. Pt is climbing stairs with step to pattern and definite use of railing. PT-OP-J Posture/Palpation/Skin Start: 08/23/22 17:11 Freq: Status: Active Protocol: Document 08/25/22 14:30 AW (Rec: 08/25/22 15:16 AW [id number]) Posture Evaluation Position Standing Head/C-Spine Posture Forward Head T-Spine Posture Increased Kyphosis L-Spine Posture Increased Lordosis Weight Distribution Weight Shifted Left Knee Posture (L) Genu Valgus,(R) Genu Valgus Comments Posture Comments Increased lordosis of the lumbar spine and suggestion of dowagers hump in the upper thoracic spine PT-OP-K Range of Motion Start: 08/23/22 17:11 Freq: Status: Active Protocol: Document 08/25/22 14:30 AW (Rec: 08/25/22 14:52 AW [id number]) Lumbar Spine Range of Motion Lumbar Spine Active Testing Position Standing Flexion 15 Extension 10 ROM Limitations Soft Tissue Tightness,Pain, Swelling Comments Side bend is extremely limited bilaterally with pt only able to slide her fingers down her leg a few inches. Rotation is <25% with pelvis not fixed, extremely limited with hips fixed. Hip Goniometric Range of Motion Hip bilat Hip ROM WFL Yes Hip ROM Limitations Comments Hip flexion WNL with knees bent. HS length is limited with passive SLR ~40 degrees short of 90. IR:ER ratio is ~2 :3 with good excursion. No pain reported except at end- range IR on the right. PT-OP-L Special Tests Start: 08/23/22 17:11 Freq: Status: Active Protocol: Document 08/25/22 14:30 AW (Rec: 08/25/22 15:16 AW [id number]) Special Tests Lumbar Spine Special Tests Manual Traction Test Results no change in symptoms Straight Leg Raise Test Results ASLR positive for increased back pain Comments better with compression through sides of pelvis Compression Test Results positive for increased back pain PT-OP-M Strength Start: 08/23/22 17:11 Freq: Status: Active Protocol: Document 08/25/22 14:30 AW (Rec: 08/25/22 17:34 AW [id number]) Hip Strength Hip Manual Muscle Testing Left Flexion (L2) 4 Good Extension (S1) 4 Good Abduction 4- Good- External Rotation 4+ Good+ Internal Rotation 4+ Good+ Right Flexion (L2) 4 Good Extension (S1) 4- Good- Abduction 3+ Fair+ External Rotation 4 Good Internal Rotation 4+ Good+ Knee Strength Knee Manual Muscle Testing Bilateral Flexion (S2) 4+ Good+ Extension (L3) 4+ Good+ Comments Pt has history of bilateral ACL repair and appears to be somewhat self-limiting with MMT due to apprehension. Ankle/Foot Strength Ankle and Foot Manual Muscle Testing Bilateral Dorsiflexion (L4) 4+ Good+ Plantarflexion (S1) 4 Good Comments PF tested with single leg heel lifts. Pt able to complete 6 reps with good elevation bilaterally. Toe Strength Toe Manual Muscle Testing Great Toe Flexion 5 Normal Extension 5 Normal PT-OP-Q Treatments Start: 08/23/22 17:11 Freq: Status: Active Protocol: Document 08/31/22 08:21 LRN (Rec: 08/31/22 09:08 LRN [id number]) Therapeutic Exercises Supine Exercises SKTC Supine Exercise Name SKTC Side bilateral Equipment Used Belt Reps/Minutes 10SH x 6 supine march Supine Exercise Name supine march - TrA (HEP) Reps/Minutes 15x each glute bridge Supine Exercise Name glute bridge Reps/Minutes 15x Comments focus on pain free range Prone Exercises side bend Prone Exercise Name quadruped side bend Side bilateral cat cow Prone Exercise Name cat cow Comments cued hands under shoulders, knees under hips; HEP child's pose Prone Exercise Name child's pose Comments propped on elbows; unable to extend arms due to pain Sitting Exercises Sit<>Supine Sitting Exercise Name Practice Sit<>Supine Side left Reps/Minutes 3x Therapeutic Activity Therapeutic Activity Sit<>Stand Name Verbal I/S transfer training Reps/Minutes 1' Sit<>Supine Name Transfer training Reps/Minutes 1' Manual Therapy Treatment Soft Tissue Mobilization lumbar paraspinals Body Location lumbar paraspinals and R superior glutw Mobilization Type Instrument Assisted,Rolling, Strumming Intensity/Depth Moderate Body Position Prone Comments Prone over body pillow. Used stainless steel tool (LEEF) along lumbar paraspinals in short strokes distal to proximal to improve blood flow and relieve muscle tension Joint Mobilizations Thoracic PA's Joint T3-T9 Direction P>A Body Position Prone Comments Pt on pillow lumbar PA's Joint L1-3 Direction P>A Grade III Body Position Prone Comments good feedback/response from pt PT-OP-R Modalities Start: 08/23/22 17:11 Freq: Status: Active Protocol: Document 08/26/22 15:16 AW (Rec: 08/26/22 16:08 AW [id number]) Hot Pack/Cold Pack Treatment Hot Pack Location lumbar Patient Position Prone Treatment Duration (minutes) 15 Patient Tolerance Good Comments prone over body pillow to end tx PT-OP-T Assessment and Plan Start: 08/23/22 17:11 Freq: Status: Active Protocol: Document 08/31/22 08:21 LRN (Rec: 08/31/22 09:08 LRN [id number]) Physical Therapy Assessment Goals Five Impairment strength Short Term Goal (STG) Pt will improve bilateral hip abduction strength to 4/5 or greater to improve her gait mechanics STG Duration 09/29/22 Shelter Goal (LTG) Pt will complete 12 reps or more on 30 Second Sit to Stand as a measure of improved LE strength LTG Duration 11/05/22 Four Impairment interrupted sleep Transportation Clerk Goal (LTG) Pt will sleep at least 6 restful hours 4/7 days per week. LTG Duration 11/05/22 Three Impairment standing tolerance is limited Short Term Goal (STG) Pt will tolerate standing for 10 minutes with 4/10 or less pain so that she can wash dishes standing at her sink STG Duration 09/29/22 Transportation Clerk Goal (LTG) Pt will tolerate being on her feet at least one hour with 3/ 10 or less pain to improve her ability to engage with work responsibilities LTG Duration 11/05/22 Two Impairment painful lumbar mobility Short Term Goal (STG) Pt will tolerate 50% lumbar rotation with pain 4/10 or less STG Duration 09/29/22 Shelter Goal (LTG) Pt will tolerate 75% lumbar rotation with pain 3/10 or less LTG Duration 11/05/22 One Impairment lacks HEP Short Term Goal (STG) Pt will be instructed in HEP for lumbar mobility, core stabilization, and hip strength to support therapy services provided in clinic STG Duration 09/29/22 LTG Duration 11/05/22 Assessment Summary Assessment Pt most comfortable on pillow for manual therapy. She was sore in back in area of PA's and MFR work with scraper. Not able to privide L/S traction with belt due pt mass to relieve friction. Pt remains reportedly quite limited in function. Physical Therapy Plan Frequency and Duration Frequency of Treatment 2x/Week Plan of Care Start Date 08/25/22 Plan of Care End Date 11/05/22 Next Visit Focus/Plan Next Note Type Treatment Note Next Visit Plan Change position frequently. Core stability progression in supine. Hip ER in sitting. STM (instrument-assisted?) and lumbar PA's in prone.
--- NOTE | 2022-09-02 09:48 | PT.OTN ---
Current Diagnoses Low back pain, unspecified (09/02/22) Physical Therapy Treatment Note PT-OP-A Visit Information Start: 08/23/22 17:11 Freq: Status: Active Protocol: Document 09/02/22 08:39 AW (Rec: 09/02/22 09:46 AW [id number]) Out-Patient Physical Therapy Visit Information Visit Information Visit Type Treatment Note Visit Start Time 09:00 Visit Stop Time 09:55 Total Visit Minutes 55 Visit Number 4 Number of GLASSWARE FINISHER Visits 0 Evaluation Information Evaluation Date 08/25/22 Precautions Precautions R frozen shoulder since 08/2021 PT-OP-B Current Condition Start: 08/23/22 17:11 Freq: Status: Active Protocol: Document 08/25/22 14:30 AW (Rec: 08/23/22 17:17 AW [id number]) Current Condition History of Current Condition Onset Date July 2022 Current Complaints back pain - low back to neck, bilateral hip pain History of Current Condition Aicha states she was moving things around in her storage unit in late June. At work a few days later, she developed pain so severe she was barely able to move. Her pain seems to originate in her low back but radiates up to her mid back and neck as well as down to her posterior hips. She denies pain below the hip. She went to ED in early July and found IM toradol and prednisone somewhat effective. She is still having severe pain, rating it at about 8/10 generally. Her pain limits her sitting, standing, and walking tolerance. She is able to do any of these things for ~10 minutes but prefers to change position frequently. She prefers to sleep on her stomach and finds this is generally the most comfortable position but has not been able to sleep more than ~4 hours per night due to pain. Aicha has history of ACL reconstruction on both knees ( 2018 and 2020). She was satisfied with her rehab after both surgeries. She denies history of significant back pain prior to this episode. She has been unable to work for over a month now due to her pain. 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 Prior Treatments and Tests 07/21/22 Lumbar spine x-ray: Lumbar spine without acute osseous abnormalities. Multilevel spondylosis most pronounced at the thoracolumbar junction. Future Testing and Treatments Planned Hoping for advanced imaging. Treatment Goals Patient/Caregiver Goals Be able to stand and do dishes . Return to work - lift, bend, squat, stand 8-10 hours. Get some quality sleep. PT-OP-C Subjective Start: 08/23/22 17:11 Freq: Status: Active Protocol: Document 09/02/22 08:39 AW (Rec: 09/02/22 09:46 AW [id number]) OP-PT Subjective Patient Comments Patient Comments Pt feels she overdid it yesterday with walking and other activity. Feels extra sore today. PT-OP-D Balance Start: 08/23/22 17:11 Freq: Status: Active Protocol: Document 08/25/22 14:30 AW (Rec: 08/25/22 15:01 AW [id number]) Balance Tests Single Limb Standing Single Limb- Right 10 sec Single Limb- Left 10 sec PT-OP-F Manual Assessment Start: 08/23/22 17:11 Freq: Status: Active Protocol: Document 08/25/22 14:30 AW (Rec: 08/25/22 15:01 AW [id number]) Manual Assessments Soft Tissue Assessment Soft Tissue Mobility Assessment HS length deficient as noted in ROM. TFL/ITB tight with positive Wilian's. Pt is tender to palpation at bilateral lumbar paraspinals. Joint Mobility Assessment Joint Mobility Assessment Notable hinge at L3. Very limited PA's at L3-L5 and at T1-T4. PT-OP-G Mobility & Gait Start: 08/23/22 17:11 Freq: Status: Active Protocol: Document 08/25/22 14:30 AW (Rec: 08/25/22 15:01 AW [id number]) OP Gait Assessment Comments Gait Comments Pt walks with wide KSENIA, slight genu valgum, and slightly excessive ER bilaterally. Generally steady. Pt is climbing stairs with step to pattern and definite use of railing. PT-OP-J Posture/Palpation/Skin Start: 08/23/22 17:11 Freq: Status: Active Protocol: Document 08/25/22 14:30 AW (Rec: 08/25/22 15:16 AW [id number]) Posture Evaluation Position Standing Head/C-Spine Posture Forward Head T-Spine Posture Increased Kyphosis L-Spine Posture Increased Lordosis Weight Distribution Weight Shifted Left Knee Posture (L) Genu Valgus,(R) Genu Valgus Comments Posture Comments Increased lordosis of the lumbar spine and suggestion of dowagers hump in the upper thoracic spine PT-OP-K Range of Motion Start: 08/23/22 17:11 Freq: Status: Active Protocol: Document 08/25/22 14:30 AW (Rec: 08/25/22 14:52 AW [id number]) Lumbar Spine Range of Motion Lumbar Spine Active Testing Position Standing Flexion 15 Extension 10 ROM Limitations Soft Tissue Tightness,Pain, Swelling Comments Side bend is extremely limited bilaterally with pt only able to slide her fingers down her leg a few inches. Rotation is <25% with pelvis not fixed, extremely limited with hips fixed. Hip Goniometric Range of Motion Hip bilat Hip ROM WFL Yes Hip ROM Limitations Comments Hip flexion WNL with knees bent. HS length is limited with passive SLR ~40 degrees short of 90. IR:ER ratio is ~2 :3 with good excursion. No pain reported except at end- range IR on the right. PT-OP-L Special Tests Start: 08/23/22 17:11 Freq: Status: Active Protocol: Document 08/25/22 14:30 AW (Rec: 08/25/22 15:16 AW [id number]) Special Tests Lumbar Spine Special Tests Manual Traction Test Results no change in symptoms Straight Leg Raise Test Results ASLR positive for increased back pain Comments better with compression through sides of pelvis Compression Test Results positive for increased back pain PT-OP-M Strength Start: 08/23/22 17:11 Freq: Status: Active Protocol: Document 08/25/22 14:30 AW (Rec: 08/25/22 17:34 AW [id number]) Hip Strength Hip Manual Muscle Testing Left Flexion (L2) 4 Good Extension (S1) 4 Good Abduction 4- Good- External Rotation 4+ Good+ Internal Rotation 4+ Good+ Right Flexion (L2) 4 Good Extension (S1) 4- Good- Abduction 3+ Fair+ External Rotation 4 Good Internal Rotation 4+ Good+ Knee Strength Knee Manual Muscle Testing Bilateral Flexion (S2) 4+ Good+ Extension (L3) 4+ Good+ Comments Pt has history of bilateral ACL repair and appears to be somewhat self-limiting with MMT due to apprehension. Ankle/Foot Strength Ankle and Foot Manual Muscle Testing Bilateral Dorsiflexion (L4) 4+ Good+ Plantarflexion (S1) 4 Good Comments PF tested with single leg heel lifts. Pt able to complete 6 reps with good elevation bilaterally. Toe Strength Toe Manual Muscle Testing Great Toe Flexion 5 Normal Extension 5 Normal PT-OP-Q Treatments Start: 08/23/22 17:11 Freq: Status: Active Protocol: Document 09/02/22 08:39 AW (Rec: 09/02/22 09:46 AW [id number]) Therapeutic Exercises Supine Exercises SKTC Supine Exercise Name SKTC Side bilateral Equipment Used Belt Reps/Minutes 10SH x 6 glute bridge Supine Exercise Name glute bridge Reps/Minutes 15x Comments focus on pain free range Prone Exercises child's pose Prone Exercise Name child's pose Comments propped on elbows; unable to extend arms due to pain Sidelying Exercises open book Sidelying Exercise Name open book Side bilateral Comments HEP Other Exercises kneeling glute activation Other Exercise Name kneeling glute activation Resistance hips to heels>tall kneeling Reps/Minutes focus on glute engagement Manual Therapy Treatment Soft Tissue Mobilization lumbar paraspinals Body Location thoracic paraspinals Mobilization Type Instrument Assisted,Rolling, Strumming Intensity/Depth Moderate Body Position Prone Comments Prone over body pillow. Used stainless steel tool (LEEF) along thoracic paraspinals in short strokes distal to proximal to improve blood flow and relieve muscle tension Joint Mobilizations Thoracic PA's Joint T3-T9 Direction P>A Body Position Prone Comments Pt on pillow PT-OP-R Modalities Start: 08/23/22 17:11 Freq: Status: Active Protocol: Document 09/02/22 08:39 AW (Rec: 09/02/22 09:46 AW [id number]) Hot Pack/Cold Pack Treatment Hot Pack Location lumbar Patient Position Prone Treatment Duration (minutes) 15 Patient Tolerance Good Comments prone over body pillow to end tx PT-OP-T Assessment and Plan Start: 08/23/22 17:11 Freq: Status: Active Protocol: Document 09/02/22 08:39 AW (Rec: 09/02/22 09:46 AW [id number]) Physical Therapy Assessment Impairments Impairments Balance,Gait,Pain,Posture,ROM, Sensation,Soft Tissue Mobility ,Strength Goals Five Impairment strength Short Term Goal (STG) Pt will improve bilateral hip abduction strength to 4/5 or greater to improve her gait mechanics STG Duration 09/29/22 Pile Fabric Knitter Goal (LTG) Pt will complete 12 reps or more on 30 Second Sit to Stand as a measure of improved LE strength LTG Duration 11/05/22 Four Impairment interrupted sleep Group Home Goal (LTG) Pt will sleep at least 6 restful hours 4/7 days per week. LTG Duration 11/05/22 Three Impairment standing tolerance is limited Short Term Goal (STG) Pt will tolerate standing for 10 minutes with 4/10 or less pain so that she can wash dishes standing at her sink STG Duration 09/29/22 Pile Fabric Knitter Goal (LTG) Pt will tolerate being on her feet at least one hour with 3/ 10 or less pain to improve her ability to engage with work responsibilities LTG Duration 11/05/22 Two Impairment painful lumbar mobility Short Term Goal (STG) Pt will tolerate 50% lumbar rotation with pain 4/10 or less STG Duration 09/29/22 Group Home Goal (LTG) Pt will tolerate 75% lumbar rotation with pain 3/10 or less LTG Duration 11/05/22 One Impairment lacks HEP Short Term Goal (STG) Pt will be instructed in HEP for lumbar mobility, core stabilization, and hip strength to support therapy services provided in clinic STG Duration 09/29/22 LTG Duration 11/05/22 Assessment Summary Assessment Pt continues to respond well to manual therapy. She was able to tolerate sidelying rotation today which was added to HEP. SYmptoms remain highly irritable. Physical Therapy Plan Frequency and Duration Frequency of Treatment 2x/Week Plan of Care Start Date 08/25/22 Plan of Care End Date 11/05/22 Therapeutic Interventions Therapeutic Interventions Balance Training,Gait Training ,Home Exercise Program,Manual Therapy,Self-Care/Home Management,Soft Tissue Mobilization,Taping, Therapeutic Activities, Therapeutic Exercises Modalities Cold Pack/Ice Massage,Electric Stimulation,Hot Packs Next Visit Focus/Plan Next Note Type Treatment Note Next Visit Plan Change position frequently. Core stability progression in supine. Hip ER in sitting. STM (instrument-assisted?) and lumbar PA's in prone.
--- NOTE | 2022-09-09 14:00 | PT.OTN ---
Current Diagnoses Low back pain, unspecified (09/09/22) Physical Therapy Treatment Note PT-OP-A Visit Information Start: 08/23/22 17:11 Freq: Status: Active Protocol: Document 09/09/22 12:57 AW (Rec: 09/09/22 14:00 AW [id number]) Out-Patient Physical Therapy Visit Information Visit Information Visit Type Treatment Note Visit Start Time 13:00 Visit Stop Time 13:45 Total Visit Minutes 40 Visit Number 5 Number of ANALYTICAL STRATEGIST Visits 0 Evaluation Information Evaluation Date 08/25/22 PT-OP-B Current Condition Start: 08/23/22 17:11 Freq: Status: Active Protocol: Document 08/25/22 14:30 AW (Rec: 08/23/22 17:17 AW [id number]) Current Condition History of Current Condition Onset Date July 2022 Current Complaints back pain - low back to neck, bilateral hip pain History of Current Condition Aicha states she was moving things around in her storage unit in late June. At work a few days later, she developed pain so severe she was barely able to move. Her pain seems to originate in her low back but radiates up to her mid back and neck as well as down to her posterior hips. She denies pain below the hip. She went to ED in early July and found IM toradol and prednisone somewhat effective. She is still having severe pain, rating it at about 8/10 generally. Her pain limits her sitting, standing, and walking tolerance. She is able to do any of these things for ~10 minutes but prefers to change position frequently. She prefers to sleep on her stomach and finds this is generally the most comfortable position but has not been able to sleep more than ~4 hours per night due to pain. Aicha has history of ACL reconstruction on both knees ( 2018 and 2020). She was satisfied with her rehab after both surgeries. She denies history of significant back pain prior to this episode. She has been unable to work for over a month now due to her pain. 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 Prior Treatments and Tests 07/21/22 Lumbar spine x-ray: Lumbar spine without acute osseous abnormalities. Multilevel spondylosis most pronounced at the thoracolumbar junction. Future Testing and Treatments Planned Hoping for advanced imaging. Treatment Goals Patient/Caregiver Goals Be able to stand and do dishes . Return to work - lift, bend, squat, stand 8-10 hours. Get some quality sleep. PT-OP-C Subjective Start: 08/23/22 17:11 Freq: Status: Active Protocol: Document 09/09/22 12:57 AW (Rec: 09/09/22 14:00 AW [id number]) OP-PT Subjective Patient Comments Patient Comments Hard to get up after sitting or lying down for a while. Pain seems to migrate to outer hips when getting up (points to C shape around greater trochanters). PT-OP-D Balance Start: 08/23/22 17:11 Freq: Status: Active Protocol: Document 08/25/22 14:30 AW (Rec: 08/25/22 15:01 AW [id number]) Balance Tests Single Limb Standing Single Limb- Right 10 sec Single Limb- Left 10 sec PT-OP-F Manual Assessment Start: 08/23/22 17:11 Freq: Status: Active Protocol: Document 08/25/22 14:30 AW (Rec: 08/25/22 15:01 AW [id number]) Manual Assessments Soft Tissue Assessment Soft Tissue Mobility Assessment HS length deficient as noted in ROM. TFL/ITB tight with positive Wilian's. Pt is tender to palpation at bilateral lumbar paraspinals. Joint Mobility Assessment Joint Mobility Assessment Notable hinge at L3. Very limited PA's at L3-L5 and at T1-T4. PT-OP-G Mobility & Gait Start: 08/23/22 17:11 Freq: Status: Active Protocol: Document 08/25/22 14:30 AW (Rec: 08/25/22 15:01 AW [id number]) OP Gait Assessment Comments Gait Comments Pt walks with wide KSENIA, slight genu valgum, and slightly excessive ER bilaterally. Generally steady. Pt is climbing stairs with step to pattern and definite use of railing. PT-OP-J Posture/Palpation/Skin Start: 08/23/22 17:11 Freq: Status: Active Protocol: Document 08/25/22 14:30 AW (Rec: 08/25/22 15:16 AW [id number]) Posture Evaluation Position Standing Head/C-Spine Posture Forward Head T-Spine Posture Increased Kyphosis L-Spine Posture Increased Lordosis Weight Distribution Weight Shifted Left Knee Posture (L) Genu Valgus,(R) Genu Valgus Comments Posture Comments Increased lordosis of the lumbar spine and suggestion of dowagers hump in the upper thoracic spine PT-OP-K Range of Motion Start: 08/23/22 17:11 Freq: Status: Active Protocol: Document 08/25/22 14:30 AW (Rec: 08/25/22 14:52 AW [id number]) Lumbar Spine Range of Motion Lumbar Spine Active Testing Position Standing Flexion 15 Extension 10 ROM Limitations Soft Tissue Tightness,Pain, Swelling Comments Side bend is extremely limited bilaterally with pt only able to slide her fingers down her leg a few inches. Rotation is <25% with pelvis not fixed, extremely limited with hips fixed. Hip Goniometric Range of Motion Hip bilat Hip ROM WFL Yes Hip ROM Limitations Comments Hip flexion WNL with knees bent. HS length is limited with passive SLR ~40 degrees short of 90. IR:ER ratio is ~2 :3 with good excursion. No pain reported except at end- range IR on the right. PT-OP-L Special Tests Start: 08/23/22 17:11 Freq: Status: Active Protocol: Document 08/25/22 14:30 AW (Rec: 08/25/22 15:16 AW [id number]) Special Tests Lumbar Spine Special Tests Manual Traction Test Results no change in symptoms Straight Leg Raise Test Results ASLR positive for increased back pain Comments better with compression through sides of pelvis Compression Test Results positive for increased back pain PT-OP-M Strength Start: 08/23/22 17:11 Freq: Status: Active Protocol: Document 08/25/22 14:30 AW (Rec: 08/25/22 17:34 AW [id number]) Hip Strength Hip Manual Muscle Testing Left Flexion (L2) 4 Good Extension (S1) 4 Good Abduction 4- Good- External Rotation 4+ Good+ Internal Rotation 4+ Good+ Right Flexion (L2) 4 Good Extension (S1) 4- Good- Abduction 3+ Fair+ External Rotation 4 Good Internal Rotation 4+ Good+ Knee Strength Knee Manual Muscle Testing Bilateral Flexion (S2) 4+ Good+ Extension (L3) 4+ Good+ Comments Pt has history of bilateral ACL repair and appears to be somewhat self-limiting with MMT due to apprehension. Ankle/Foot Strength Ankle and Foot Manual Muscle Testing Bilateral Dorsiflexion (L4) 4+ Good+ Plantarflexion (S1) 4 Good Comments PF tested with single leg heel lifts. Pt able to complete 6 reps with good elevation bilaterally. Toe Strength Toe Manual Muscle Testing Great Toe Flexion 5 Normal Extension 5 Normal PT-OP-Q Treatments Start: 08/23/22 17:11 Freq: Status: Active Protocol: Document 09/09/22 12:57 AW (Rec: 09/09/22 14:00 AW [id number]) Therapeutic Exercises Supine Exercises supine march Supine Exercise Name supine march - TrA; progressed to floating heel slide Reps/Minutes 15x each Prone Exercises side bend Prone Exercise Name quadruped side bend Side bilateral cat cow Prone Exercise Name cat cow Comments cued hands under shoulders, knees under hips; HEP child's pose Prone Exercise Name child's pose Comments propped on elbows; unable to extend arms due to pain Sidelying Exercises clamshell Sidelying Exercise Name clamshell Side bilateral Comments limited excursion; fair tolerance open book Sidelying Exercise Name open book Side bilateral Comments top leg forward off mat Sitting Exercises forward flexion stretch Sitting Exercise Name forward flexion stretch Reps/Minutes 20 SH x 5 Comments pt denies pain Standing Exercises standing hip flexor stretch Standing Exercise Name standing hip flexor stretch Side bilateral Reps/Minutes 30 SH x 4 Comments cued PPT, glute engagement for more effective stretch Other Exercises kneeling glute activation Other Exercise Name kneeling glute activation Resistance hips to heels>tall kneeling Reps/Minutes focus on glute engagement Manual Therapy Treatment Soft Tissue Mobilization lumbar paraspinals Body Location lumbar paraspinals Mobilization Type Instrument Assisted,Rolling, Strumming Intensity/Depth Moderate Body Position Prone Comments Prone over body pillow. Used stainless steel tool (LEEF) along thoracic paraspinals in short strokes distal to proximal to improve blood flow and relieve muscle tension Joint Mobilizations lumbar PA's Joint L3-5 Direction P>A Grade III Body Position Prone Comments Pt on pillow PT-OP-R Modalities Start: 08/23/22 17:11 Freq: Status: Active Protocol: Document 09/02/22 08:39 AW (Rec: 09/02/22 09:46 AW [id number]) Hot Pack/Cold Pack Treatment Hot Pack Location lumbar Patient Position Prone Treatment Duration (minutes) 15 Patient Tolerance Good Comments prone over body pillow to end tx PT-OP-T Assessment and Plan Start: 08/23/22 17:11 Freq: Status: Active Protocol: Document 09/09/22 12:57 AW (Rec: 09/09/22 14:00 AW [id number]) Physical Therapy Assessment Impairments Impairments Balance,Gait,Pain,Posture,ROM, Sensation,Soft Tissue Mobility ,Strength Goals Five Impairment strength Short Term Goal (STG) Pt will improve bilateral hip abduction strength to 4/5 or greater to improve her gait mechanics STG Duration 09/29/22 Fpc Goal (LTG) Pt will complete 12 reps or more on 30 Second Sit to Stand as a measure of improved LE strength LTG Duration 11/05/22 Four Impairment interrupted sleep Strategic Client Executive Goal (LTG) Pt will sleep at least 6 restful hours 4/7 days per week. LTG Duration 11/05/22 Three Impairment standing tolerance is limited Short Term Goal (STG) Pt will tolerate standing for 10 minutes with 4/10 or less pain so that she can wash dishes standing at her sink STG Duration 09/29/22 Fpc Goal (LTG) Pt will tolerate being on her feet at least one hour with 3/ 10 or less pain to improve her ability to engage with work responsibilities LTG Duration 11/05/22 Two Impairment painful lumbar mobility Short Term Goal (STG) Pt will tolerate 50% lumbar rotation with pain 4/10 or less STG Duration 09/29/22 Strategic Client Executive Goal (LTG) Pt will tolerate 75% lumbar rotation with pain 3/10 or less LTG Duration 11/05/22 One Impairment lacks HEP Short Term Goal (STG) Pt will be instructed in HEP for lumbar mobility, core stabilization, and hip strength to support therapy services provided in clinic STG Duration 09/29/22 LTG Duration 11/05/22 Assessment Summary Assessment Pt is less guarded today. She moves well on the treatment mat and is able to change position although with reduced fluidity. Hip flexors and TFL /ITB are tight. Instructed pt in standing hip flexor stretch today for HEP. Pt mentions at end of session that she has a foam roller at home. May consider for future HEP. Physical Therapy Plan Frequency and Duration Frequency of Treatment 2x/Week Plan of Care Start Date 08/25/22 Plan of Care End Date 11/05/22 Therapeutic Interventions Therapeutic Interventions Balance Training,Gait Training ,Home Exercise Program,Manual Therapy,Self-Care/Home Management,Soft Tissue Mobilization,Taping, Therapeutic Activities, Therapeutic Exercises Modalities Cold Pack/Ice Massage,Electric Stimulation,Hot Packs Next Visit Focus/Plan Next Note Type Treatment Note Next Visit Plan Change position frequently. Core stability progression. Review hip flexor stretch. Add TFL/ITB stretch and consider foam roll instruction for pt to continue at home.
--- NOTE | 2022-09-13 10:20 | PT.OTN ---
Current Diagnoses Low back pain, unspecified (09/13/22) Physical Therapy Treatment Note PT-OP-A Visit Information Start: 08/23/22 17:11 Freq: Status: Active Protocol: Document 09/13/22 08:18 LRN (Rec: 09/13/22 09:04 LRN [id number]) Out-Patient Physical Therapy Visit Information Visit Information Visit Type Treatment Note Visit Start Time 08:18 Visit Stop Time 09:04 Total Visit Minutes 46 Visit Number 6 Evaluation Information Evaluation Date 08/25/22 Precautions Precautions R frozen shoulder since 08/2021 PT-OP-B Current Condition Start: 08/23/22 17:11 Freq: Status: Active Protocol: Document 08/25/22 14:30 AW (Rec: 08/23/22 17:17 AW [id number]) Current Condition History of Current Condition Onset Date July 2022 Current Complaints back pain - low back to neck, bilateral hip pain History of Current Condition Aicha states she was moving things around in her storage unit in late June. At work a few days later, she developed pain so severe she was barely able to move. Her pain seems to originate in her low back but radiates up to her mid back and neck as well as down to her posterior hips. She denies pain below the hip. She went to ED in early July and found IM toradol and prednisone somewhat effective. She is still having severe pain, rating it at about 8/10 generally. Her pain limits her sitting, standing, and walking tolerance. She is able to do any of these things for ~10 minutes but prefers to change position frequently. She prefers to sleep on her stomach and finds this is generally the most comfortable position but has not been able to sleep more than ~4 hours per night due to pain. Aicha has history of ACL reconstruction on both knees ( 2018 and 2020). She was satisfied with her rehab after both surgeries. She denies history of significant back pain prior to this episode. She has been unable to work for over a month now due to her pain. 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 Prior Treatments and Tests 07/21/22 Lumbar spine x-ray: Lumbar spine without acute osseous abnormalities. Multilevel spondylosis most pronounced at the thoracolumbar junction. Future Testing and Treatments Planned Hoping for advanced imaging. Treatment Goals Patient/Caregiver Goals Be able to stand and do dishes . Return to work - lift, bend, squat, stand 8-10 hours. Get some quality sleep. PT-OP-C Subjective Start: 08/23/22 17:11 Freq: Status: Active Protocol: Document 09/13/22 08:18 LRN (Rec: 09/13/22 09:04 LRN [id number]) OP-PT Subjective Patient Comments Patient Comments ............ PT-OP-D Balance Start: 08/23/22 17:11 Freq: Status: Active Protocol: Document 08/25/22 14:30 AW (Rec: 08/25/22 15:01 AW [id number]) Balance Tests Single Limb Standing Single Limb- Right 10 sec Single Limb- Left 10 sec PT-OP-F Manual Assessment Start: 08/23/22 17:11 Freq: Status: Active Protocol: Document 08/25/22 14:30 AW (Rec: 08/25/22 15:01 AW [id number]) Manual Assessments Soft Tissue Assessment Soft Tissue Mobility Assessment HS length deficient as noted in ROM. TFL/ITB tight with positive Wilian's. Pt is tender to palpation at bilateral lumbar paraspinals. Joint Mobility Assessment Joint Mobility Assessment Notable hinge at L3. Very limited PA's at L3-L5 and at T1-T4. PT-OP-G Mobility & Gait Start: 08/23/22 17:11 Freq: Status: Active Protocol: Document 08/25/22 14:30 AW (Rec: 08/25/22 15:01 AW [id number]) OP Gait Assessment Comments Gait Comments Pt walks with wide KSENIA, slight genu valgum, and slightly excessive ER bilaterally. Generally steady. Pt is climbing stairs with step to pattern and definite use of railing. PT-OP-J Posture/Palpation/Skin Start: 08/23/22 17:11 Freq: Status: Active Protocol: Document 08/25/22 14:30 AW (Rec: 08/25/22 15:16 AW [id number]) Posture Evaluation Position Standing Head/C-Spine Posture Forward Head T-Spine Posture Increased Kyphosis L-Spine Posture Increased Lordosis Weight Distribution Weight Shifted Left Knee Posture (L) Genu Valgus,(R) Genu Valgus Comments Posture Comments Increased lordosis of the lumbar spine and suggestion of dowagers hump in the upper thoracic spine PT-OP-K Range of Motion Start: 08/23/22 17:11 Freq: Status: Active Protocol: Document 08/25/22 14:30 AW (Rec: 08/25/22 14:52 AW [id number]) Lumbar Spine Range of Motion Lumbar Spine Active Testing Position Standing Flexion 15 Extension 10 ROM Limitations Soft Tissue Tightness,Pain, Swelling Comments Side bend is extremely limited bilaterally with pt only able to slide her fingers down her leg a few inches. Rotation is <25% with pelvis not fixed, extremely limited with hips fixed. Hip Goniometric Range of Motion Hip bilat Hip ROM WFL Yes Hip ROM Limitations Comments Hip flexion WNL with knees bent. HS length is limited with passive SLR ~40 degrees short of 90. IR:ER ratio is ~2 :3 with good excursion. No pain reported except at end- range IR on the right. PT-OP-L Special Tests Start: 08/23/22 17:11 Freq: Status: Active Protocol: Document 08/25/22 14:30 AW (Rec: 08/25/22 15:16 AW [id number]) Special Tests Lumbar Spine Special Tests Manual Traction Test Results no change in symptoms Straight Leg Raise Test Results ASLR positive for increased back pain Comments better with compression through sides of pelvis Compression Test Results positive for increased back pain PT-OP-M Strength Start: 08/23/22 17:11 Freq: Status: Active Protocol: Document 08/25/22 14:30 AW (Rec: 08/25/22 17:34 AW [id number]) Hip Strength Hip Manual Muscle Testing Left Flexion (L2) 4 Good Extension (S1) 4 Good Abduction 4- Good- External Rotation 4+ Good+ Internal Rotation 4+ Good+ Right Flexion (L2) 4 Good Extension (S1) 4- Good- Abduction 3+ Fair+ External Rotation 4 Good Internal Rotation 4+ Good+ Knee Strength Knee Manual Muscle Testing Bilateral Flexion (S2) 4+ Good+ Extension (L3) 4+ Good+ Comments Pt has history of bilateral ACL repair and appears to be somewhat self-limiting with MMT due to apprehension. Ankle/Foot Strength Ankle and Foot Manual Muscle Testing Bilateral Dorsiflexion (L4) 4+ Good+ Plantarflexion (S1) 4 Good Comments PF tested with single leg heel lifts. Pt able to complete 6 reps with good elevation bilaterally. Toe Strength Toe Manual Muscle Testing Great Toe Flexion 5 Normal Extension 5 Normal PT-OP-Q Treatments Start: 08/23/22 17:11 Freq: Status: Active Protocol: Document 09/13/22 08:18 LRN (Rec: 09/13/22 09:04 LRN [id number]) Therapeutic Exercises Supine Exercises Deep Breathing Supine Exercise Name Deep Breathing Comments 3 sec breath in (4 out) progressed to 4 sec breath Piriformis stretch Supine Exercise Name Knee over opp knee w/belt to help pull to opp shldr Side bilateral Reps/Minutes 5-10 secs x 5 Comments A lot of extra time to determine max asst'd stretch DKTC Supine Exercise Name DKTC assisted stretch Equipment Used Belt & PT to assist Reps/Minutes 5-10 secs x 5 Comments A lot of extra time to determine max asst'd stretch SKTC Supine Exercise Name SKTC Side bilateral Equipment Used Belt Reps/Minutes x 2 Comments DC'd due to too difficult for pt to hold. Standing Exercises Trunk flex Standing Exercise Name Active trunk flex Reps/Minutes 10x Comments Pn rated 3.5 > 4.5 Trunk ext Standing Exercise Name Actvie trunk ext Reps/Minutes 10x Comments Pn rated 3>3.5 Other Exercises Transfers with breathing Other Exercise Name Transfers w/breathing Reps/Minutes 4' Self-Care/Home Management Treatment Education Patient Education Body Mechanics,Pain Management ,Posture Other Education Pt educated in pain perception as related to body inclusion. Pt educated in Proper posture as related to safe movements. Pt educated briefly in proper body mechanics (pt reported having body mechanics training at work s/p injury). Pt educated in proper posturing sup, side, sit, stand. Activities Self-Care/Home Management Activities Issued & reviewed Body Mechanics basics handout. I/S pt in deep breathing for HEP, up to 5-6 sec breath in/ double length time out. Pt I/S practice breaths with transfers PT-OP-R Modalities Start: 08/23/22 17:11 Freq: Status: Active Protocol: Document 09/13/22 08:18 LRN (Rec: 09/13/22 10:11 LRN [id number]) Electric Stimulation Electric Stimulation Interferential Current (IFC) Body Location Mid back>Upper gluteals Duration (Minutes) 10 Intensity 13>16 Target/Sweep Sweep Patient Position Hooklying Combined With Heat/Cold Hot Pack PT-OP-T Assessment and Plan Start: 08/23/22 17:11 Freq: Status: Active Protocol: Document 09/13/22 08:18 LRN (Rec: 09/13/22 09:04 LRN [id number]) Physical Therapy Assessment Goals Five Impairment strength Short Term Goal (STG) Pt will improve bilateral hip abduction strength to 4/5 or greater to improve her gait mechanics STG Duration 09/29/22 [employer] Goal (LTG) Pt will complete 12 reps or more on 30 Second Sit to Stand as a measure of improved LE strength LTG Duration 11/05/22 Four Impairment interrupted sleep Group Home Goal (LTG) Pt will sleep at least 6 restful hours 4/7 days per week. LTG Duration 11/05/22 Three Impairment standing tolerance is limited Short Term Goal (STG) Pt will tolerate standing for 10 minutes with 4/10 or less pain so that she can wash dishes standing at her sink STG Duration 09/29/22 Group Home Goal (LTG) Pt will tolerate being on her feet at least one hour with 3/ 10 or less pain to improve her ability to engage with work responsibilities LTG Duration 11/05/22 Two Impairment painful lumbar mobility Short Term Goal (STG) Pt will tolerate 50% lumbar rotation with pain 4/10 or less STG Duration 09/29/22 Group Home Goal (LTG) Pt will tolerate 75% lumbar rotation with pain 3/10 or less LTG Duration 11/05/22 One Impairment lacks HEP Short Term Goal (STG) Pt will be instructed in HEP for lumbar mobility, core stabilization, and hip strength to support therapy services provided in clinic STG Duration 09/29/22 LTG Duration 11/05/22 Assessment Summary Assessment Pt is uncomfortable in all positions and appears stressed and upset. Pt was receptive to training on deep breathing to decrease sympathetic tone and nighttime postural education. Pt deep breaths are only 3 secs long. Pt acknowledges she is a stomach sleeper and is aware that it is not the best sleep position , stating she moves around a lot during the night. Pt needs stretch to upper as well as lower back into flexion and core stabilization. Physical Therapy Plan Frequency and Duration Frequency of Treatment 2x/Week Plan of Care Start Date 08/25/22 Plan of Care End Date 11/05/22 Next Visit Focus/Plan Next Note Type Treatment Note Next Visit Plan (note: Pt changes position frequently). Assess for pelvic obiliquity. Assess for increase to deep breathing time to 5 sec/5-10 sec and transfers with proper breathing. Review hip flexor stretch. Add TFL/ITB stretch and consider foam roll instruction for pt to continue at home. Core stability progression.
--- NOTE | 2022-09-16 13:10 | PT.OTN ---
Current Diagnoses Low back pain, unspecified (09/15/22) Physical Therapy Treatment Note PT-OP-A Visit Information Start: 08/23/22 17:11 Freq: Status: Active Protocol: Document 09/15/22 12:15 SP (Rec: 09/15/22 13:06 SP [id number]) Out-Patient Physical Therapy Visit Information Visit Information Visit Type Treatment Note Visit Note Pt reports back still hurting, can stay in any one position for to long, stretching doesn' t seem to help at home. Visit Start Time 12:15 Visit Stop Time 13:10 Total Visit Minutes 55 Visit Number 7 Number of SHIRT PRESSER Visits 1 Evaluation Information Evaluation Date 08/25/22 Precautions Precautions R frozen shoulder since 08/2021 PT-OP-B Current Condition Start: 08/23/22 17:11 Freq: Status: Active Protocol: Document 08/25/22 14:30 AW (Rec: 08/23/22 17:17 AW [id number]) Current Condition History of Current Condition Onset Date July 2022 Current Complaints back pain - low back to neck, bilateral hip pain History of Current Condition Aicha states she was moving things around in her storage unit in late June. At work a few days later, she developed pain so severe she was barely able to move. Her pain seems to originate in her low back but radiates up to her mid back and neck as well as down to her posterior hips. She denies pain below the hip. She went to ED in early July and found IM toradol and prednisone somewhat effective. She is still having severe pain, rating it at about 8/10 generally. Her pain limits her sitting, standing, and walking tolerance. She is able to do any of these things for ~10 minutes but prefers to change position frequently. She prefers to sleep on her stomach and finds this is generally the most comfortable position but has not been able to sleep more than ~4 hours per night due to pain. Aicha has history of ACL reconstruction on both knees ( 2018 and 2020). She was satisfied with her rehab after both surgeries. She denies history of significant back pain prior to this episode. She has been unable to work for over a month now due to her pain. 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 Prior Treatments and Tests 07/21/22 Lumbar spine x-ray: Lumbar spine without acute osseous abnormalities. Multilevel spondylosis most pronounced at the thoracolumbar junction. Future Testing and Treatments Planned Hoping for advanced imaging. Treatment Goals Patient/Caregiver Goals Be able to stand and do dishes . Return to work - lift, bend, squat, stand 8-10 hours. Get some quality sleep. PT-OP-C Subjective Start: 08/23/22 17:11 Freq: Status: Active Protocol: Document 09/13/22 08:18 LRN (Rec: 09/13/22 09:04 LRN [id number]) OP-PT Subjective Patient Comments Patient Comments ............ PT-OP-D Balance Start: 08/23/22 17:11 Freq: Status: Active Protocol: Document 08/25/22 14:30 AW (Rec: 08/25/22 15:01 AW [id number]) Balance Tests Single Limb Standing Single Limb- Right 10 sec Single Limb- Left 10 sec PT-OP-F Manual Assessment Start: 08/23/22 17:11 Freq: Status: Active Protocol: Document 08/25/22 14:30 AW (Rec: 08/25/22 15:01 AW [id number]) Manual Assessments Soft Tissue Assessment Soft Tissue Mobility Assessment HS length deficient as noted in ROM. TFL/ITB tight with positive Wilian's. Pt is tender to palpation at bilateral lumbar paraspinals. Joint Mobility Assessment Joint Mobility Assessment Notable hinge at L3. Very limited PA's at L3-L5 and at T1-T4. PT-OP-G Mobility & Gait Start: 08/23/22 17:11 Freq: Status: Active Protocol: Document 08/25/22 14:30 AW (Rec: 08/25/22 15:01 AW [id number]) OP Gait Assessment Comments Gait Comments Pt walks with wide KSENIA, slight genu valgum, and slightly excessive ER bilaterally. Generally steady. Pt is climbing stairs with step to pattern and definite use of railing. PT-OP-J Posture/Palpation/Skin Start: 08/23/22 17:11 Freq: Status: Active Protocol: Document 08/25/22 14:30 AW (Rec: 08/25/22 15:16 AW [id number]) Posture Evaluation Position Standing Head/C-Spine Posture Forward Head T-Spine Posture Increased Kyphosis L-Spine Posture Increased Lordosis Weight Distribution Weight Shifted Left Knee Posture (L) Genu Valgus,(R) Genu Valgus Comments Posture Comments Increased lordosis of the lumbar spine and suggestion of dowagers hump in the upper thoracic spine PT-OP-K Range of Motion Start: 08/23/22 17:11 Freq: Status: Active Protocol: Document 08/25/22 14:30 AW (Rec: 08/25/22 14:52 AW [id number]) Lumbar Spine Range of Motion Lumbar Spine Active Testing Position Standing Flexion 15 Extension 10 ROM Limitations Soft Tissue Tightness,Pain, Swelling Comments Side bend is extremely limited bilaterally with pt only able to slide her fingers down her leg a few inches. Rotation is <25% with pelvis not fixed, extremely limited with hips fixed. Hip Goniometric Range of Motion Hip bilat Hip ROM WFL Yes Hip ROM Limitations Comments Hip flexion WNL with knees bent. HS length is limited with passive SLR ~40 degrees short of 90. IR:ER ratio is ~2 :3 with good excursion. No pain reported except at end- range IR on the right. PT-OP-L Special Tests Start: 08/23/22 17:11 Freq: Status: Active Protocol: Document 08/25/22 14:30 AW (Rec: 08/25/22 15:16 AW [id number]) Special Tests Lumbar Spine Special Tests Manual Traction Test Results no change in symptoms Straight Leg Raise Test Results ASLR positive for increased back pain Comments better with compression through sides of pelvis Compression Test Results positive for increased back pain PT-OP-M Strength Start: 08/23/22 17:11 Freq: Status: Active Protocol: Document 08/25/22 14:30 AW (Rec: 08/25/22 17:34 AW [id number]) Hip Strength Hip Manual Muscle Testing Left Flexion (L2) 4 Good Extension (S1) 4 Good Abduction 4- Good- External Rotation 4+ Good+ Internal Rotation 4+ Good+ Right Flexion (L2) 4 Good Extension (S1) 4- Good- Abduction 3+ Fair+ External Rotation 4 Good Internal Rotation 4+ Good+ Knee Strength Knee Manual Muscle Testing Bilateral Flexion (S2) 4+ Good+ Extension (L3) 4+ Good+ Comments Pt has history of bilateral ACL repair and appears to be somewhat self-limiting with MMT due to apprehension. Ankle/Foot Strength Ankle and Foot Manual Muscle Testing Bilateral Dorsiflexion (L4) 4+ Good+ Plantarflexion (S1) 4 Good Comments PF tested with single leg heel lifts. Pt able to complete 6 reps with good elevation bilaterally. Toe Strength Toe Manual Muscle Testing Great Toe Flexion 5 Normal Extension 5 Normal PT-OP-Q Treatments Start: 08/23/22 17:11 Freq: Status: Active Protocol: Document 09/15/22 12:15 SP (Rec: 09/15/22 13:06 SP [id number]) Therapeutic Exercises Supine Exercises TS ext over rolled towel Supine Exercise Name assessed if TS ext would allow decrease mid back pain/inc mobility comfort Equipment Used towel roll under TS various levels, instructed breath Reps/Minutes 1 min total Comments pt reported no decrease back pain. Deep Breathing Supine Exercise Name Deep Breathing Comments 3 sec breath in (4 out) progressed to 4 sec breath DKTC Supine Exercise Name DKTC assisted stretch- unable to tolerate- Discontinued Equipment Used Belt & PT to assist Reps/Minutes 5-10 secs x 5 Comments A lot of extra time to determine max asst'd stretch supine october Supine Exercise Name supine october - TrA; progressed to floating heel slide Reps/Minutes 15x each LTR Supine Exercise Name LTR Side bilateral Resistance over 55cm tball, table Reps/Minutes x2 Comments painful, very limited range so stopped pelvic tilt Supine Exercise Name pelvic tilt - posterior Reps/Minutes 5 SH x 10 Comments cued TrA activation Sidelying Exercises open book Sidelying Exercise Name open book Side bilateral Reps/Minutes x3 Comments legs together, cued slow- no lessen but not worse mid/low back pain Sitting Exercises HS stretch Sitting Exercise Name initiated in PT Side bilateral Reps/Minutes 2x 15 SH Comments good feedback HS stretch, no pain back forward flexion stretch Sitting Exercise Name forward flexion stretch Reps/Minutes 20 SH x 5 Comments unable, painful- DCd Manual Therapy Treatment Soft Tissue Mobilization lumbar paraspinals Body Location thoracic and lumbar paraspinals Mobilization Type Instrument Assisted,Rolling, Strumming Intensity/Depth Moderate Body Position Prone Comments Prone over body pillow. Discussed use tennis ball on wall self application Joint Mobilizations Thoracic PA's Joint T3-T9 Direction P>A Grade II Body Position Prone Comments Pt on pillow lumbar PA's Joint L3-5 Direction P>A Grade II Body Position Prone Comments Pt on pillow Manual Traction lumbar traction Details hooklying, mobilization strap behind upper calves- inferior distraction Body Position Hooklying Reps/Duration 3x 30 SH Comments Pt reports decreased tension on back sustained gentle inferior distraction. Instructed small range pelvis tilts, no increased pain. LBP came back when released. PT-OP-R Modalities Start: 08/23/22 17:11 Freq: Status: Active Protocol: Document 09/15/22 12:15 SP (Rec: 09/15/22 13:06 SP [id number]) Electric Stimulation Electric Stimulation Interferential Current (IFC) Body Location Mid back>Upper gluteals Duration (Minutes) 10 Intensity 26>32 Target/Sweep Sweep Patient Position Prone Combined With Heat/Cold Hot Pack Comments good feedback response It always feels good, I wonder if I can get a back stim unit for home for help with pain? PT-OP-T Assessment and Plan Start: 08/23/22 17:11 Freq: Status: Active Protocol: Document 09/15/22 12:15 SP (Rec: 09/15/22 13:06 SP [id number]) Physical Therapy Assessment Goals Five Impairment strength Short Term Goal (STG) Pt will improve bilateral hip abduction strength to 4/5 or greater to improve her gait mechanics STG Duration 09/29/22 [facility]sp Goal (LTG) Pt will complete 12 reps or more on 30 Second Sit to Stand as a measure of improved LE strength LTG Duration 11/05/22 Four Impairment interrupted sleep [facility]sp Goal (LTG) Pt will sleep at least 6 restful hours 4/7 days per week. LTG Duration 11/05/22 Three Impairment standing tolerance is limited Short Term Goal (STG) Pt will tolerate standing for 10 minutes with 4/10 or less pain so that she can wash dishes standing at her sink STG Duration 09/29/22 Usp Goal (LTG) Pt will tolerate being on her feet at least one hour with 3/ 10 or less pain to improve her ability to engage with work responsibilities LTG Duration 11/05/22 Two Impairment painful lumbar mobility Short Term Goal (STG) Pt will tolerate 50% lumbar rotation with pain 4/10 or less STG Duration 09/29/22 [employer] Goal (LTG) Pt will tolerate 75% lumbar rotation with pain 3/10 or less LTG Duration 11/05/22 One Impairment lacks HEP Short Term Goal (STG) Pt will be instructed in HEP for lumbar mobility, core stabilization, and hip strength to support therapy services provided in clinic STG Duration 09/29/22 LTG Duration 11/05/22 Assessment Summary Assessment Pt uncomfortable in supine/ side limited activity tolerated before needs to sit/ stand up. Reported some relief with manual lumbar gentle traction. Pt good response to prone IFC and MHP, reports little decrease LBP after modalities. Physical Therapy Plan Frequency and Duration Frequency of Treatment 2x/Week Plan of Care Start Date 08/25/22 Plan of Care End Date 11/05/22 Therapeutic Interventions Therapeutic Interventions Balance Training,Gait Training ,Home Exercise Program,Manual Therapy,Self-Care/Home Management,Soft Tissue Mobilization,Taping, Therapeutic Activities, Therapeutic Exercises Modalities Cold Pack/Ice Massage,Electric Stimulation,Hot Packs Next Visit Focus/Plan Next Note Type Treatment Note Next Visit Plan (note: Pt changes position frequently). Assess for pelvic obiliquity. Assess for increase to deep breathing time to 5 sec/5-10 sec and transfers with proper breathing. Review hip flexor stretch. Add TFL/ITB stretch and consider foam roll instruction for pt to continue at home. Core stability progression.
--- NOTE | 2022-09-24 10:46 | PT-OP ANOTE ---
Pt same day cx due to sick.
--- NOTE | 2022-09-28 15:22 | PT.OTN ---
Current Diagnoses Low back pain, unspecified (09/28/22) Physical Therapy Treatment Note PT-OP-A Visit Information Start: 08/23/22 17:11 Freq: Status: Active Protocol: Document 09/28/22 14:35 SP (Rec: 09/28/22 16:10 SP [id number]) Out-Patient Physical Therapy Visit Information Visit Information Visit Type Treatment Note Visit Start Time 14:35 Visit Stop Time 15:22 Total Visit Minutes 47 Visit Number 8 Number of FLOUR MIXER Visits 2 Evaluation Information Evaluation Date 08/25/22 Precautions Precautions R frozen shoulder since 08/2021 PT-OP-B Current Condition Start: 08/23/22 17:11 Freq: Status: Active Protocol: Document 08/25/22 14:30 AW (Rec: 08/23/22 17:17 AW [id number]) Current Condition History of Current Condition Onset Date July 2022 Current Complaints back pain - low back to neck, bilateral hip pain History of Current Condition Aicha states she was moving things around in her storage unit in late June. At work a few days later, she developed pain so severe she was barely able to move. Her pain seems to originate in her low back but radiates up to her mid back and neck as well as down to her posterior hips. She denies pain below the hip. She went to ED in early July and found IM toradol and prednisone somewhat effective. She is still having severe pain, rating it at about 8/10 generally. Her pain limits her sitting, standing, and walking tolerance. She is able to do any of these things for ~10 minutes but prefers to change position frequently. She prefers to sleep on her stomach and finds this is generally the most comfortable position but has not been able to sleep more than ~4 hours per night due to pain. Aicha has history of ACL reconstruction on both knees ( 2018 and 2020). She was satisfied with her rehab after both surgeries. She denies history of significant back pain prior to this episode. She has been unable to work for over a month now due to her pain. 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 Prior Treatments and Tests 07/21/22 Lumbar spine x-ray: Lumbar spine without acute osseous abnormalities. Multilevel spondylosis most pronounced at the thoracolumbar junction. Future Testing and Treatments Planned Hoping for advanced imaging. Treatment Goals Patient/Caregiver Goals Be able to stand and do dishes . Return to work - lift, bend, squat, stand 8-10 hours. Get some quality sleep. PT-OP-C Subjective Start: 08/23/22 17:11 Freq: Status: Active Protocol: Document 09/28/22 14:35 SP (Rec: 09/28/22 16:10 SP [id number]) OP-PT Subjective Patient Comments Patient Comments Pt reports had to cancel last couple appts due to sick. Dr Coombs and Dr Zhou sent a referral for R shld in [place] with back, she doesn't feel PT is helping her back so wants to focus on R shld. She still can't tolerate any one position for much period of time. PT-OP-D Balance Start: 08/23/22 17:11 Freq: Status: Active Protocol: Document 08/25/22 14:30 AW (Rec: 08/25/22 15:01 AW [id number]) Balance Tests Single Limb Standing Single Limb- Right 10 sec Single Limb- Left 10 sec PT-OP-F Manual Assessment Start: 08/23/22 17:11 Freq: Status: Active Protocol: Document 08/25/22 14:30 AW (Rec: 08/25/22 15:01 AW [id number]) Manual Assessments Soft Tissue Assessment Soft Tissue Mobility Assessment HS length deficient as noted in ROM. TFL/ITB tight with positive Wilian's. Pt is tender to palpation at bilateral lumbar paraspinals. Joint Mobility Assessment Joint Mobility Assessment Notable hinge at L3. Very limited PA's at L3-L5 and at T1-T4. PT-OP-G Mobility & Gait Start: 08/23/22 17:11 Freq: Status: Active Protocol: Document 08/25/22 14:30 AW (Rec: 08/25/22 15:01 AW [id number]) OP Gait Assessment Comments Gait Comments Pt walks with wide KSENIA, slight genu valgum, and slightly excessive ER bilaterally. Generally steady. Pt is climbing stairs with step to pattern and definite use of railing. PT-OP-J Posture/Palpation/Skin Start: 08/23/22 17:11 Freq: Status: Active Protocol: Document 08/25/22 14:30 AW (Rec: 08/25/22 15:16 AW [id number]) Posture Evaluation Position Standing Head/C-Spine Posture Forward Head T-Spine Posture Increased Kyphosis L-Spine Posture Increased Lordosis Weight Distribution Weight Shifted Left Knee Posture (L) Genu Valgus,(R) Genu Valgus Comments Posture Comments Increased lordosis of the lumbar spine and suggestion of dowagers hump in the upper thoracic spine PT-OP-K Range of Motion Start: 08/23/22 17:11 Freq: Status: Active Protocol: Document 08/25/22 14:30 AW (Rec: 08/25/22 14:52 AW [id number]) Lumbar Spine Range of Motion Lumbar Spine Active Testing Position Standing Flexion 15 Extension 10 ROM Limitations Soft Tissue Tightness,Pain, Swelling Comments Side bend is extremely limited bilaterally with pt only able to slide her fingers down her leg a few inches. Rotation is <25% with pelvis not fixed, extremely limited with hips fixed. Hip Goniometric Range of Motion Hip bilat Hip ROM WFL Yes Hip ROM Limitations Comments Hip flexion WNL with knees bent. HS length is limited with passive SLR ~40 degrees short of 90. IR:ER ratio is ~2 :3 with good excursion. No pain reported except at end- range IR on the right. PT-OP-L Special Tests Start: 08/23/22 17:11 Freq: Status: Active Protocol: Document 08/25/22 14:30 AW (Rec: 08/25/22 15:16 AW [id number]) Special Tests Lumbar Spine Special Tests Manual Traction Test Results no change in symptoms Straight Leg Raise Test Results ASLR positive for increased back pain Comments better with compression through sides of pelvis Compression Test Results positive for increased back pain PT-OP-M Strength Start: 08/23/22 17:11 Freq: Status: Active Protocol: Document 08/25/22 14:30 AW (Rec: 08/25/22 17:34 AW [id number]) Hip Strength Hip Manual Muscle Testing Left Flexion (L2) 4 Good Extension (S1) 4 Good Abduction 4- Good- External Rotation 4+ Good+ Internal Rotation 4+ Good+ Right Flexion (L2) 4 Good Extension (S1) 4- Good- Abduction 3+ Fair+ External Rotation 4 Good Internal Rotation 4+ Good+ Knee Strength Knee Manual Muscle Testing Bilateral Flexion (S2) 4+ Good+ Extension (L3) 4+ Good+ Comments Pt has history of bilateral ACL repair and appears to be somewhat self-limiting with MMT due to apprehension. Ankle/Foot Strength Ankle and Foot Manual Muscle Testing Bilateral Dorsiflexion (L4) 4+ Good+ Plantarflexion (S1) 4 Good Comments PF tested with single leg heel lifts. Pt able to complete 6 reps with good elevation bilaterally. Toe Strength Toe Manual Muscle Testing Great Toe Flexion 5 Normal Extension 5 Normal PT-OP-Q Treatments Start: 08/23/22 17:11 Freq: Status: Active Protocol: Document 09/28/22 14:35 SP (Rec: 09/28/22 16:10 SP [id number]) Therapeutic Exercises Supine Exercises TS ext over rolled towel Supine Exercise Name pt reports after last tx thinks extension over towel increased back pain Deep Breathing Supine Exercise Name Deep Breathing Comments 3 sec breath in (4 out) progressed to 4 sec breath Piriformis stretch Supine Exercise Name Knee over opp knee w/belt to help pull to opp shldr Side bilateral Reps/Minutes 5-10 secs x 5 Comments causes pain so DC glute bridge Supine Exercise Name glute bridge- pt reports stopped due to back pain at home Reps/Minutes 15x Comments focus on pain free range LTR Supine Exercise Name LTR Side bilateral Resistance AROM> TB #1 around thighs small range, over 55cm tball Reps/Minutes x5 reps then painful low back Comments cues core was ok but beyond causes increase intolerant pain pelvic tilt Supine Exercise Name pelvic tilt - posterior Reps/Minutes 5 SH x 10 Comments cued gentle TrA activation Prone Exercises cat cow Prone Exercise Name cat cow- reports helpful for back but limited time due to R shoulder pain Equipment Used HEP reviewed Reps/Minutes x8 reps Comments good form knee under hips, hands under shoulders child's pose Prone Exercise Name child's pose-HEP reviewed Reps/Minutes 20SH only able tolerate WB on R shld Comments propped on elbows; good feedback stretch on elbows Sidelying Exercises clamshell Sidelying Exercise Name reports causes back pain so stopped open book Sidelying Exercise Name reports causes mid back pain so stopped Sitting Exercises HS stretch Sitting Exercise Name unable perform increases back pain Side bilateral Reps/Minutes 2x 15 SH Comments good feedback HS stretch, no pain back Standing Exercises resisted shld ext Standing Exercise Name trial in PT- caused LBP DC Resistance TB #1- stated easy> TB #2 cuesed LBP Comments cued PPT/TA, elbows straight, slow tall posturing- painful increase resis Trunk flex Standing Exercise Name Active trunk flex Reps/Minutes 2 reps Comments 8/10 pain DC Trunk ext Standing Exercise Name Actvie trunk ext Reps/Minutes 3 SH x5 reps Comments Pn rated 1-2/10 feels good Manual Therapy Treatment Soft Tissue Mobilization lumbar paraspinals Body Location thoracic and lumbar paraspinals Mobilization Type Instrument Assisted,Rolling, Strumming Intensity/Depth Moderate Body Position Prone Comments Prone over body pillow/ face cradle. GOod feedback response post manual. Joint Mobilizations Thoracic PA's Joint T3-T9 Direction P>A Grade II Body Position Prone Comments Pt on pillow- good feedback response. lumbar PA's Joint L3-5 Direction P>A Grade II Body Position Prone Comments Pt on pillow- good feedback response. PT-OP-R Modalities Start: 08/23/22 17:11 Freq: Status: Active Protocol: Document 09/15/22 12:15 SP (Rec: 09/15/22 13:06 SP [id number]) Electric Stimulation Electric Stimulation Interferential Current (IFC) Body Location Mid back>Upper gluteals Duration (Minutes) 10 Intensity 26>32 Target/Sweep Sweep Patient Position Prone Combined With Heat/Cold Hot Pack Comments good feedback response It always feels good, I wonder if I can get a back stim unit for home for help with pain? PT-OP-T Assessment and Plan Start: 08/23/22 17:11 Freq: Status: Active Protocol: Document 09/28/22 14:35 SP (Rec: 09/28/22 16:10 SP [id number]) Physical Therapy Assessment Goals Five Impairment strength Short Term Goal (STG) Pt will improve bilateral hip abduction strength to 4/5 or greater to improve her gait mechanics 09/28/22: Limited hip abd AROM and resisted due to pain, not significant improvement with ed TA/ PPT. STG Duration 09/29/22 slow progress due to back pain 09/28/22 Director Acute Goal (LTG) Pt will complete 12 reps or more on 30 Second Sit to Stand as a measure of improved LE strength LTG Duration 11/05/22 Four Impairment interrupted sleep Director Acute Goal (LTG) Pt will sleep at least 6 restful hours 4/7 days per week. 09.28.22: ok as long as can get in comfortable, on average 4- 6 hrs sleep. LTG Duration 11/05/22 Three Impairment standing tolerance is limited Short Term Goal (STG) Pt will tolerate standing for 10 minutes with 4/10 or less pain so that she can wash dishes standing at her sink 09/28/22: not being able to stand doing dishes up to 5 min before increased pain has to stop. STG Duration 09/29/22 slow progress due to pain 09/28/22 Snf Goal (LTG) Pt will tolerate being on her feet at least one hour with 3/ 10 or less pain to improve her ability to engage with work responsibilities 09/28/22: pt if wt shifing can tolerate 30 min. IF stationary doesn't longer 5 min. LTG Duration 11/05/22 slow progression due to pain. 09/28/22 Two Impairment painful lumbar mobility Short Term Goal (STG) Pt will tolerate 50% lumbar rotation with pain 4/10 or less 09/28/22: standing painfree, 5- 6/10 during LTR. STG Duration 09/29/22 low progression Director Acute Goal (LTG) Pt will tolerate 75% lumbar rotation with pain 3/10 or less LTG Duration 11/05/22 One Impairment lacks HEP Short Term Goal (STG) Pt will be instructed in HEP for lumbar mobility, core stabilization, and hip strength to support therapy services provided in clinic 09/28/22: Pt reports the only exercises that don;t cause much pain is cat camel, child' s pose stretch and lumbar extension standing. STopped all others due to increased pain. STG Duration 09/29/22 slow progression due to LBP 09/28/22 LTG Duration 11/05/22 Assessment Summary Assessment Pt making slow gains with therapy due to back pain, reports cat camel, child's pose stretch and lumbar extension standing are the only exercises that tolerant to perform. Feels the estim and manual STMs helps the most in the moment but short lasting beyond tx, pain from 7 -8/10 to 3-4/10. She still guarding and limited in LS rotation and tolerance to ITB and LTR ROM. Physical Therapy Plan Frequency and Duration Frequency of Treatment 2x/Week Plan of Care Start Date 08/25/22 Plan of Care End Date 11/05/22 Therapeutic Interventions Therapeutic Interventions Balance Training,Gait Training ,Home Exercise Program,Manual Therapy,Self-Care/Home Management,Soft Tissue Mobilization,Taping, Therapeutic Activities, Therapeutic Exercises Modalities Cold Pack/Ice Massage,Electric Stimulation,Hot Packs Next Visit Focus/Plan Next Note Type Treatment Note Next Visit Plan Last appt next and pt wanting work with R shld on referral. Limited TA w/ PPT mobility/ stretching tolerance w/ LBP. (note: Pt changes position frequently). Assess for pelvic obiliquity. Assess for increase to deep breathing time to 5 sec/5-10 sec and transfers with proper breathing. Review hip flexor stretch. Core stability progression.
--- NOTE | 2022-10-11 16:52 | PT.OTN ---
Current Diagnoses Low back pain, unspecified (10/11/22) Physical Therapy Treatment Note PT-OP-A Visit Information Start: 08/23/22 17:11 Freq: Status: Active Protocol: Document 10/11/22 15:32 LRN (Rec: 10/11/22 16:51 LRN [id number]) Out-Patient Physical Therapy Visit Information Visit Information Visit Type Treatment Note Visit Start Time 15:32 Visit Stop Time 16:15 Total Visit Minutes 45 Visit Number 9 Evaluation Information Evaluation Date 08/25/22 Precautions Precautions R frozen shoulder since 08/2021 PT-OP-B Current Condition Start: 08/23/22 17:11 Freq: Status: Active Protocol: Document 08/25/22 14:30 AW (Rec: 08/23/22 17:17 AW [id number]) Current Condition History of Current Condition Onset Date July 2022 Current Complaints back pain - low back to neck, bilateral hip pain History of Current Condition Aicha states she was moving things around in her storage unit in late June. At work a few days later, she developed pain so severe she was barely able to move. Her pain seems to originate in her low back but radiates up to her mid back and neck as well as down to her posterior hips. She denies pain below the hip. She went to ED in early July and found IM toradol and prednisone somewhat effective. She is still having severe pain, rating it at about 8/10 generally. Her pain limits her sitting, standing, and walking tolerance. She is able to do any of these things for ~10 minutes but prefers to change position frequently. She prefers to sleep on her stomach and finds this is generally the most comfortable position but has not been able to sleep more than ~4 hours per night due to pain. Aicha has history of ACL reconstruction on both knees ( 2018 and 2020). She was satisfied with her rehab after both surgeries. She denies history of significant back pain prior to this episode. She has been unable to work for over a month now due to her pain. 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 Prior Treatments and Tests 07/21/22 Lumbar spine x-ray: Lumbar spine without acute osseous abnormalities. Multilevel spondylosis most pronounced at the thoracolumbar junction. Future Testing and Treatments Planned Hoping for advanced imaging. Treatment Goals Patient/Caregiver Goals Be able to stand and do dishes . Return to work - lift, bend, squat, stand 8-10 hours. Get some quality sleep. PT-OP-C Subjective Start: 08/23/22 17:11 Freq: Status: Active Protocol: Document 10/11/22 15:32 LRN (Rec: 10/11/22 16:51 LRN [id number]) OP-PT Subjective Patient Comments Patient Comments No change. Pain down legs in sciatic nerve mostly on the right. PT-OP-D Balance Start: 08/23/22 17:11 Freq: Status: Active Protocol: Document 08/25/22 14:30 AW (Rec: 08/25/22 15:01 AW [id number]) Balance Tests Single Limb Standing Single Limb- Right 10 sec Single Limb- Left 10 sec PT-OP-F Manual Assessment Start: 08/23/22 17:11 Freq: Status: Active Protocol: Document 08/25/22 14:30 AW (Rec: 08/25/22 15:01 AW [id number]) Manual Assessments Soft Tissue Assessment Soft Tissue Mobility Assessment HS length deficient as noted in ROM. TFL/ITB tight with positive Wilian's. Pt is tender to palpation at bilateral lumbar paraspinals. Joint Mobility Assessment Joint Mobility Assessment Notable hinge at L3. Very limited PA's at L3-L5 and at T1-T4. PT-OP-G Mobility & Gait Start: 08/23/22 17:11 Freq: Status: Active Protocol: Document 08/25/22 14:30 AW (Rec: 08/25/22 15:01 AW [id number]) OP Gait Assessment Comments Gait Comments Pt walks with wide KSENIA, slight genu valgum, and slightly excessive ER bilaterally. Generally steady. Pt is climbing stairs with step to pattern and definite use of railing. PT-OP-J Posture/Palpation/Skin Start: 08/23/22 17:11 Freq: Status: Active Protocol: Document 08/25/22 14:30 AW (Rec: 08/25/22 15:16 AW [id number]) Posture Evaluation Position Standing Head/C-Spine Posture Forward Head T-Spine Posture Increased Kyphosis L-Spine Posture Increased Lordosis Weight Distribution Weight Shifted Left Knee Posture (L) Genu Valgus,(R) Genu Valgus Comments Posture Comments Increased lordosis of the lumbar spine and suggestion of dowagers hump in the upper thoracic spine PT-OP-K Range of Motion Start: 08/23/22 17:11 Freq: Status: Active Protocol: Document 08/25/22 14:30 AW (Rec: 08/25/22 14:52 AW [id number]) Lumbar Spine Range of Motion Lumbar Spine Active Testing Position Standing Flexion 15 Extension 10 ROM Limitations Soft Tissue Tightness,Pain, Swelling Comments Side bend is extremely limited bilaterally with pt only able to slide her fingers down her leg a few inches. Rotation is <25% with pelvis not fixed, extremely limited with hips fixed. Hip Goniometric Range of Motion Hip bilat Hip ROM WFL Yes Hip ROM Limitations Comments Hip flexion WNL with knees bent. HS length is limited with passive SLR ~40 degrees short of 90. IR:ER ratio is ~2 :3 with good excursion. No pain reported except at end- range IR on the right. PT-OP-L Special Tests Start: 08/23/22 17:11 Freq: Status: Active Protocol: Document 08/25/22 14:30 AW (Rec: 08/25/22 15:16 AW [id number]) Special Tests Lumbar Spine Special Tests Manual Traction Test Results no change in symptoms Straight Leg Raise Test Results ASLR positive for increased back pain Comments better with compression through sides of pelvis Compression Test Results positive for increased back pain PT-OP-M Strength Start: 08/23/22 17:11 Freq: Status: Active Protocol: Document 08/25/22 14:30 AW (Rec: 08/25/22 17:34 AW [id number]) Hip Strength Hip Manual Muscle Testing Left Flexion (L2) 4 Good Extension (S1) 4 Good Abduction 4- Good- External Rotation 4+ Good+ Internal Rotation 4+ Good+ Right Flexion (L2) 4 Good Extension (S1) 4- Good- Abduction 3+ Fair+ External Rotation 4 Good Internal Rotation 4+ Good+ Knee Strength Knee Manual Muscle Testing Bilateral Flexion (S2) 4+ Good+ Extension (L3) 4+ Good+ Comments Pt has history of bilateral ACL repair and appears to be somewhat self-limiting with MMT due to apprehension. Ankle/Foot Strength Ankle and Foot Manual Muscle Testing Bilateral Dorsiflexion (L4) 4+ Good+ Plantarflexion (S1) 4 Good Comments PF tested with single leg heel lifts. Pt able to complete 6 reps with good elevation bilaterally. Toe Strength Toe Manual Muscle Testing Great Toe Flexion 5 Normal Extension 5 Normal PT-OP-Q Treatments Start: 08/23/22 17:11 Freq: Status: Active Protocol: Document 10/11/22 15:32 LRN (Rec: 10/11/22 16:51 LRN [id number]) Therapeutic Exercises Supine Exercises Deep Breathing Supine Exercise Name Deep Breathing Comments 3 sec breath in (4 out) progressed to 4 sec breath Prone Exercises cat cow Prone Exercise Name cat cow- reports helpful for back but limited time due to R shoulder pain Equipment Used HEP reviewed Reps/Minutes x8 reps Comments good form knee under hips, hands under shoulders child's pose Prone Exercise Name child's pose-HEP reviewed Reps/Minutes Hold 3 breaths x 5 Comments Extra time to determine max tolerated position, propped on elbows. Sidelying Exercises TA tightening Sidelying Exercise Name TA tightening Side bilateral Reps/Minutes 8SH x 10 Comments Extra time taken for training and finding max tolerated contraction. Sitting Exercises Slump SLiders Sitting Exercise Name Slump Sliders - kick head off Reps/Minutes 5' Comments Extra time taken to perform w/ o onset of LBP Side sit for Piriformis stretch Sitting Exercise Name Piriformis stretch on R felt with positioning both sides. Side bilateral Reps/Minutes 4' Comments Pt needing phys & v cuing to find tolerable position forward flexion stretch Sitting Exercise Name forward flexion stretch Reps/Minutes 10 SH x 2 Comments no stretch felt, no c/o pain. Standing Exercises TA tightening/PPT Standing Exercise Name TA tightening/PPT for lumbar flexion. Reps/Minutes 3' Self-Care/Home Management Treatment Education Patient Education Home Exercise Program Activities Self-Care/Home Management Activities Issued & reviewed HEP: sitting slump slider ex. I/S pt to increase use of CP to LB , transfer properly in/out of bed, and increase frequency of stretch with less intensity ( every hour or two). PT-OP-R Modalities Start: 08/23/22 17:11 Freq: Status: Active Protocol: Document 10/11/22 15:32 LRN (Rec: 10/11/22 16:51 LRN [id number]) Electric Stimulation Electric Stimulation Interferential Current (IFC) Body Location Mid back>Upper gluteals Duration (Minutes) 10 Intensity 26>32 Target/Sweep Sweep Patient Position Prone Combined With Heat/Cold Cold Pack Comments good feedback response It always feels good, I wonder if I can get a back stim unit for home for help with pain? PT-OP-T Assessment and Plan Start: 08/23/22 17:11 Freq: Status: Active Protocol: Document 10/11/22 15:32 LRN (Rec: 10/11/22 16:51 LRN [id number]) Physical Therapy Assessment Goals Five Impairment strength Short Term Goal (STG) Pt will improve bilateral hip abduction strength to 4/5 or greater to improve her gait mechanics 09/28/22: Limited hip abd AROM and resisted due to pain, not significant improvement with ed TA/ PPT. STG Duration 09/29/22 slow progress due to back pain 09/28/22 Professor Of Sport Management Goal (LTG) Pt will complete 12 reps or more on 30 Second Sit to Stand as a measure of improved LE strength LTG Duration 11/05/22 Four Impairment interrupted sleep Shelter Goal (LTG) Pt will sleep at least 6 restful hours 4/7 days per week. 09.28.22: ok as long as can get in comfortable, on average 4- 6 hrs sleep. LTG Duration 11/05/22 Three Impairment standing tolerance is limited Short Term Goal (STG) Pt will tolerate standing for 10 minutes with 4/10 or less pain so that she can wash dishes standing at her sink 09/28/22: not being able to stand doing dishes up to 5 min before increased pain has to stop. STG Duration 09/29/22 slow progress due to pain 09/28/22 Shelter Goal (LTG) Pt will tolerate being on her feet at least one hour with 3/ 10 or less pain to improve her ability to engage with work responsibilities 09/28/22: pt if wt shifing can tolerate 30 min. IF stationary doesn't longer 5 min. LTG Duration 11/05/22 slow progression due to pain. 09/28/22 Two Impairment painful lumbar mobility Short Term Goal (STG) Pt will tolerate 50% lumbar rotation with pain 4/10 or less 09/28/22: standing painfree, 5- 6/10 during LTR. STG Duration 09/29/22 low progression Shelter Goal (LTG) Pt will tolerate 75% lumbar rotation with pain 3/10 or less LTG Duration 11/05/22 One Impairment lacks HEP Short Term Goal (STG) Pt will be instructed in HEP for lumbar mobility, core stabilization, and hip strength to support therapy services provided in clinic 09/28/22: Pt reports the only exercises that don;t cause much pain is cat camel, child' s pose stretch and lumbar extension standing. STopped all others due to increased pain. 10/11/22: HEP: LE Slumpt SLider. I/S pt in trunk flex stretch (child's pose, assisted Happy Baby Pose, cat/ camel). Pt having tension in LB from excessive lumbar extension and neural tension. Pt LB temp less hot, but still warm. STG Duration 09/29/22 progressed 10/11/22 LTG Duration 11/05/22 Assessment Summary Assessment Pain in R LB felt with sidelie TA (keith) and side sit piriformis stretch (keith). Relief of pain with lumbar flexion stretch (child's pose. cat/camel), assisted Happy Baby Pose. Pt very stiff in spinal ms, hip ms, weak core ( TA), poor body mechanics getting up/down from plinth, increased temp of the LB, & very much neural tension. Pt wanting therapy for her R shoulder. Physical Therapy Plan Frequency and Duration Frequency of Treatment 2x/Week Plan of Care Start Date 08/25/22 Plan of Care End Date 11/05/22 Next Visit Focus/Plan Next Note Type Treatment Note Next Visit Plan New POC needed at end of month . Check on limitation to insurance for R shoulder eval/ treat for different physician, if not able, pt to be called to schedule more appts for treatment to low back. Limited TA w/PPT mobility/ stretching tolerance w/LBP. (note: Pt changes position frequently). Assess for pelvic obiliquity. Assess for increase to deep breathing time to 5 sec/5-10 sec and transfers with proper breathing. Review hip flexor stretch.. POC: Decrease temp in LB, improve LB/R hip mobility, improve keith LE neural gliding, improve posture (reduce trunk ext), improve core stability (core stability progression).
--- NOTE | 2022-11-05 17:55 | PT.OTN ---
Current Diagnoses Low back pain, unspecified (11/05/22) Physical Therapy Treatment Note PT-OP-A Visit Information Start: 08/23/22 17:11 Freq: Status: Active Protocol: Document 11/05/22 09:52 LRN (Rec: 11/05/22 10:38 LRN [id number]) Out-Patient Physical Therapy Visit Information Visit Information Visit Type Progress Note Visit Start Time 09:52 Visit Stop Time 10:32 Total Visit Minutes 40 Visit Number 05/31 Evaluation Information Evaluation Date 08/25/22 Precautions Precautions R frozen shoulder since 08/2021 PT-OP-B Current Condition Start: 08/23/22 17:11 Freq: Status: Active Protocol: Document 08/25/22 14:30 AW (Rec: 08/23/22 17:17 AW [id number]) Current Condition History of Current Condition Onset Date July 2022 Current Complaints back pain - low back to neck, bilateral hip pain History of Current Condition Aicha states she was moving things around in her storage unit in late June. At work a few days later, she developed pain so severe she was barely able to move. Her pain seems to originate in her low back but radiates up to her mid back and neck as well as down to her posterior hips. She denies pain below the hip. She went to ED in early July and found IM toradol and prednisone somewhat effective. She is still having severe pain, rating it at about 8/10 generally. Her pain limits her sitting, standing, and walking tolerance. She is able to do any of these things for ~10 minutes but prefers to change position frequently. She prefers to sleep on her stomach and finds this is generally the most comfortable position but has not been able to sleep more than ~4 hours per night due to pain. Aicha has history of ACL reconstruction on both knees ( 2018 and 2020). She was satisfied with her rehab after both surgeries. She denies history of significant back pain prior to this episode. She has been unable to work for over a month now due to her pain. 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 Prior Treatments and Tests 07/21/22 Lumbar spine x-ray: Lumbar spine without acute osseous abnormalities. Multilevel spondylosis most pronounced at the thoracolumbar junction. Future Testing and Treatments Planned Hoping for advanced imaging. Treatment Goals Patient/Caregiver Goals Be able to stand and do dishes . Return to work - lift, bend, squat, stand 8-10 hours. Get some quality sleep. PT-OP-C Subjective Start: 08/23/22 17:11 Freq: Status: Active Protocol: Document 11/05/22 09:52 LRN (Rec: 11/05/22 10:38 LRN [id number]) OP-PT Subjective Patient Comments Patient Comments States her back is not really better. Wants to have her shoulder worked on because she has frozen. Can't do laudry or dishes or bend over due to excrutiating pain. States she can stand for 5 minutes before pain limits her standing. PT-OP-D Balance Start: 08/23/22 17:11 Freq: Status: Active Protocol: Document 08/25/22 14:30 AW (Rec: 08/25/22 15:01 AW [id number]) Balance Tests Single Limb Standing Single Limb- Right 10 sec Single Limb- Left 10 sec PT-OP-E Functional Tests Start: 11/05/22 17:52 Freq: Status: Active Protocol: Document 11/05/22 09:52 LRN (Rec: 11/05/22 17:53 LRN [id number]) Functional Tests 30 Second Sit to Stand Test Score 8x PT-OP-F Manual Assessment Start: 08/23/22 17:11 Freq: Status: Active Protocol: Document 08/25/22 14:30 AW (Rec: 08/25/22 15:01 AW [id number]) Manual Assessments Soft Tissue Assessment Soft Tissue Mobility Assessment HS length deficient as noted in ROM. TFL/ITB tight with positive Wilian's. Pt is tender to palpation at bilateral lumbar paraspinals. Joint Mobility Assessment Joint Mobility Assessment Notable hinge at L3. Very limited PA's at L3-L5 and at T1-T4. PT-OP-G Mobility & Gait Start: 08/23/22 17:11 Freq: Status: Active Protocol: Document 08/25/22 14:30 AW (Rec: 08/25/22 15:01 AW [id number]) OP Gait Assessment Comments Gait Comments Pt walks with wide KSENIA, slight genu valgum, and slightly excessive ER bilaterally. Generally steady. Pt is climbing stairs with step to pattern and definite use of railing. PT-OP-J Posture/Palpation/Skin Start: 08/23/22 17:11 Freq: Status: Active Protocol: Document 08/25/22 14:30 AW (Rec: 08/25/22 15:16 AW [id number]) Posture Evaluation Position Standing Head/C-Spine Posture Forward Head T-Spine Posture Increased Kyphosis L-Spine Posture Increased Lordosis Weight Distribution Weight Shifted Left Knee Posture (L) Genu Valgus,(R) Genu Valgus Comments Posture Comments Increased lordosis of the lumbar spine and suggestion of dowagers hump in the upper thoracic spine PT-OP-K Range of Motion Start: 08/23/22 17:11 Freq: Status: Active Protocol: Document 11/05/22 09:52 LRN (Rec: 11/05/22 17:55 LRN [id number]) Lumbar Spine Range of Motion Lumbar Spine Active Testing Position Standing Rotation Left 12 Rotation Right 5 Lateral Flexion Left 8 Lateral Flexion Right 3 ROM Limitations Pain Comments ROM is approximation. Limited by LBP. PT-OP-L Special Tests Start: 08/23/22 17:11 Freq: Status: Active Protocol: Document 08/25/22 14:30 AW (Rec: 08/25/22 15:16 AW [id number]) Special Tests Lumbar Spine Special Tests Manual Traction Test Results no change in symptoms Straight Leg Raise Test Results ASLR positive for increased back pain Comments better with compression through sides of pelvis Compression Test Results positive for increased back pain PT-OP-M Strength Start: 08/23/22 17:11 Freq: Status: Active Protocol: Document 11/05/22 09:52 LRN (Rec: 11/05/22 10:38 LRN [id number]) Hip Strength Hip Manual Muscle Testing Left Abduction 5 Normal Right Abduction 3 Fair PT-OP-Q Treatments Start: 08/23/22 17:11 Freq: Status: Active Protocol: Document 11/05/22 09:52 LRN (Rec: 11/05/22 10:38 LRN [id number]) Therapeutic Exercises Prone Exercises cat cow Prone Exercise Name cat cow- reports helpful for back but limited time due to R shoulder pain Equipment Used HEP reviewed Reps/Minutes x8 reps Comments good form knee under hips, hands under shoulders child's pose Prone Exercise Name child's pose-HEP reviewed Reps/Minutes Hold 3 breaths x 5 Comments Extra time to determine max tolerated position, propped on elbows. Sidelying Exercises TA tightening Sidelying Exercise Name TA tightening Side bilateral Reps/Minutes 8SH x 10 each Comments Extra time taken for training and finding max tolerated contraction. Sitting Exercises Slump Tensioners Sitting Exercise Name Slump Tensioner alternating with Slump Slider Side bilateral Reps/Minutes 6' Comments Extra time taken to determine max mae mvmt to perform w/o onset of LBP Slump SLiders Sitting Exercise Name Slump Sliders - kick head off Side bilateral Reps/Minutes 6' x 2 Comments Extra time taken to determine max mae mvmt to perform w/o onset of LBP Self-Care/Home Management Treatment Education Other Education Discussed results of recheck and POC. Pt agreeable. PT-OP-R Modalities Start: 08/23/22 17:11 Freq: Status: Active Protocol: Document 10/11/22 15:32 LRN (Rec: 10/11/22 16:51 LRN [id number]) Electric Stimulation Electric Stimulation Interferential Current (IFC) Body Location Mid back>Upper gluteals Duration (Minutes) 10 Intensity 26>32 Target/Sweep Sweep Patient Position Prone Combined With Heat/Cold Cold Pack Comments good feedback response It always feels good, I wonder if I can get a back stim unit for home for help with pain? PT-OP-T Assessment and Plan Start: 08/23/22 17:11 Freq: Status: Active Protocol: Document 11/05/22 09:52 LRN (Rec: 11/05/22 10:38 LRN [id number]) Physical Therapy Assessment Rehab Potential Rehabilitation Potential Good Evaluation Complexity Number of Personal Factors/Comorbidities 1-2 Number of Body Systems Impaired 1-2 Clinical Presentation at Evaluation Evolving Impairments Impairments Balance,Gait,Pain,Posture,ROM, Sensation,Soft Tissue Mobility ,Strength Goals Five Impairment strength Short Term Goal (STG) Pt will improve bilateral hip abduction strength to 4/5 or greater to improve her gait mechanics 09/28/22: Limited hip abd AROM and resisted due to pain, not significant improvement with ed TA/ PPT. 11/05/22: Hip strength: L 5/5 , R 3/5 in range greater than neutral, strength in neutral is 5/5. STG Duration 12/20/22 progressing 11/05/22 Skilled Nursing Goal (LTG) Pt will complete 12 reps or more on 30 Second Sit to Stand as a measure of improved LE strength. 3/31/23: Sit<>Stand 8x LTG Duration 02/03/23 Four Impairment interrupted sleep Investment Executive Goal (LTG) Pt will sleep at least 6 restful hours 4/7 days per week. 09.28.22: ok as long as can get in comfortable, on average 4- 6 hrs sleep. 11/05/22: 4 hrs of uninterrupted sleep. LTG Duration 02/03/23 11/05/22: NOT MET GOAL, minimal to no improvement Three Impairment standing tolerance is limited Short Term Goal (STG) Pt will tolerate standing for 10 minutes with 4/10 or less pain so that she can wash dishes standing at her sink 09/28/22: not being able to stand doing dishes up to 5 min before increased pain has to stop. 11/05/22: Stands for 10 minutes before onset of LBP that radiates up (midback) and down to hamstrings, rated 7/ 10. STG Duration 12/20/22 progress, limited by LBP 11/05/22 Skilled Nursing Goal (LTG) Pt will tolerate being on her feet at least one hour with 3/ 10 or less pain to improve her ability to engage with work responsibilities 09/28/22: pt if wt shifing can tolerate 30 min. IF stationary doesn't longer 5 min. 11/05/22: Stands for 10 minutes before onset of LBP that radiates up (midback) and down to hamstrings, rated 7/ 10. LTG Duration 02/03/23 slow progression due to pain. 09/28/22 Two Impairment painful lumbar mobility Short Term Goal (STG) Pt will tolerate 50% lumbar rotation with pain 4/10 or less 09/28/22: standing painfree, 5- 6/10 during LTR. 11/05/22: SB L 8 deg's pain 2 /10, AB R 3 deg's pain 2/10. STG Duration 12/20/22 low progression Skilled Nursing Goal (LTG) Pt will tolerate 75% lumbar rotation with pain 3/10 or less. 11/05/22: Rot is: L ~12 deg's , R ~ 5 deg's. Pain rated 2/ 10 bilaterally. LTG Duration 02/03/23 low progression 11/05. One Impairment lacks HEP Short Term Goal (STG) Pt will be instructed in HEP for lumbar mobility, core stabilization, and hip strength to support therapy services provided in clinic 09/28/22: Pt reports the only exercises that don;t cause much pain is cat camel, child' s pose stretch and lumbar extension standing. STopped all others due to increased pain. 10/11/22: HEP: LE Slumpt SLider. I/S pt in trunk flex stretch (child's pose, assisted Happy Baby Pose, cat/ camel). Pt having tension in LB from excessive lumbar extension and neural tension. Pt LB temp less hot, but still warm. STG Duration 02/03/23 progressed 10/11/22 Assessment Summary Assessment The pt's care has been transferred from Julianne Brush PT to Padmini Marvin PT. The pt returns after 3-1/2 weeks without therapy. She is reporting no change in her back pain but reassesment shows she has only made some improvement in her standing ability. Pt mostly indicates very little to no change in her back pain. The pt is very interested in having therapy for shoulder pain, and insists she received a referral from Dr. Coombs, but due to the limitations of her insurance she would not be allowed another physical evaluation this year; therefore I recommend the pt complete her physical therapy program for her back. She may need Dr. Coombs to request PT through her insurance company for approval of more therapy this year. It appears she has been seen for 10 visits over 3 months. The pt would benefit from continued physical therapy if she would be consistent with attendance and her HEP. Physical Therapy Plan Frequency and Duration Frequency of Treatment 2x/Week Plan of Care Start Date 11/05/22 Plan of Care End Date 02/03/23 Therapeutic Interventions Therapeutic Interventions Balance Training,Gait Training ,Home Exercise Program,Manual Therapy,Neuromuscular Re- education,Self-Care/Home Management,Soft Tissue Mobilization,Taping, Therapeutic Activities, Therapeutic Exercises Modalities Cold Pack/Ice Massage,Electric Stimulation,Hot Packs Next Visit Focus/Plan Next Note Type Treatment Note Next Visit Plan Cont low back rehabilitation. Limited TA w/PPT mobility/ stretching tolerance w/LBP. (note: Pt changes position frequently). Assess for pelvic obiliquity. Assess for increase to deep breathing time to 5 sec/5-10 sec and transfers with proper breathing. Review hip flexor stretch.. POC: Decrease temp in LB, improve LB/R hip mobility, improve keith LE neural gliding, improve posture (reduce trunk ext), improve core stability (core stability progression).
--- NOTE | 2022-12-13 17:58 | PT.OTN ---
Current Diagnoses Other chronic pain (12/13/22) Pain in right shoulder (12/13/22) Stiffness of right shoulder, not elsewhere classified (12/13/22) Other spondylosis with myelopathy, lumbar region (12/13/22) Low back pain, unspecified (12/13/22) Segmental and somatic dysfunction of lower extremity (12/13/22) Superior glenoid labrum lesion of right shoulder, subsequent encounter (12/13/22) Physical Therapy Treatment Note PT-OP-A Visit Information Start: 08/23/22 17:11 Freq: Status: Active Protocol: Document 12/13/22 16:30 DCW (Rec: 12/13/22 17:30 DCW [id number]) Out-Patient Physical Therapy Visit Information Visit Information Visit Type Progress Note Visit Start Time 16:30 Visit Stop Time 17:15 Total Visit Minutes 45 Visit Number 07/01 Number of IT SECURITY PROJECT MANAGER Visits 0 Evaluation Information Evaluation Date 08/25/22 PT-OP-B Current Condition Start: 08/23/22 17:11 Freq: Status: Active Protocol: Document 12/13/22 16:30 DCW (Rec: 12/13/22 17:24 DCW [id number]) Current Condition History of Current Condition Onset Date ~1.5 year history Current Complaints Right shoulder pain/stiffness History of Current Condition Pt reports she tripped over a curb and fell about a year and a half ago, has difficulty remembering the specifics, but probably fell onto her outstretched hand. Pt struggles with any overhead activities, notes that her shoulder feels like it locks up when she is trying to move it. If she shakes it out, sometimes it helps, sometimes it doesn't. Admits that the thing that irritates her the most about it is that she typically sleeps on her stomach with her head turned to the left and her right arm tucked under her, but this causes pain and she can't do it any more. Prior Treatments and Tests Shoulder MRI: IMPRESSION: 1. Nondisplaced tearing of the anteroinferior labrum extending to involve the anterosuperior and superior labrum with small anterior paralabral cysts. Suspected additional small focal nondisplaced posterior labral tear. 2. Mild proximal biceps long head tendinosis. 3. Mild supraspinatus and infraspinatus tendinosis with low-grade bursal surface fraying but no significant rotator cuff tendon tear. 4. Mild acromioclavicular joint osteoarthrosis. 5. Trace subacromial/subdeltoid bursal effusion or bursitis. Per: Ryland Perez M.D. on 2021 Treatment Goals Patient/Caregiver Goals I just want to fully use my arm again. PT-OP-C Subjective Start: 08/23/22 17:11 Freq: Status: Active Protocol: Document 12/13/22 16:30 DCW (Rec: 12/13/22 17:30 DCW [id number]) OP-PT Subjective Patient Comments Patient Comments Pt concerned that her shoulder doesn't seem to have improved since she originally fell more than a year ago. PT-OP-E Functional Tests Start: 11/05/22 17:52 Freq: Status: Active Protocol: Document 12/13/22 16:30 DCW (Rec: 12/13/22 17:38 DCW [id number]) Functional Tests Apley's Scratch Test Action 1- Left Posterior opposite shoulder Action 1- Right Anterior opposite shoulder Action 2- Left T3 Action 2- Right C7 Action 3- Left T6 Action 3- Right L3 PT-OP-F Manual Assessment Start: 08/23/22 17:11 Freq: Status: Active Protocol: Document 12/13/22 16:30 DCW (Rec: 12/13/22 17:37 DCW [id number]) Manual Assessments Joint Mobility Assessment Joint Mobility Assessment Apprehension with overhead passive movement, notes regularly feeling of general joint instability. PT-OP-J Posture/Palpation/Skin Start: 08/23/22 17:11 Freq: Status: Active Protocol: Document 12/13/22 16:30 DCW (Rec: 12/13/22 17:37 DCW [id number]) Posture Evaluation Position Standing Shoulder Posture (R) Rounded,(R) Forward Comments Posture Comments Protected shoulder posturing PT-OP-K Range of Motion Start: 08/23/22 17:11 Freq: Status: Active Protocol: Document 12/13/22 16:30 DCW (Rec: 12/13/22 17:37 DCW [id number]) Shoulder Goniometric Range of Motion Shoulder Right Passive Testing Position Supine Flexion 123 Abduction 116 External Rotation at 0 degrees Abduction 45 Right Active Testing Position Sitting Flexion 101 Abduction 96 External Rotation at 0 degrees Abduction 37 Internal Rotation Behind Back (text) L3 Left Active Shoulder ROM WFL Yes Testing Position Sitting Flexion 180 Extension 180 External Rotation at 0 degrees Abduction 48 Internal Rotation Behind Back (text) T6 PT-OP-L Special Tests Start: 08/23/22 17:11 Freq: Status: Active Protocol: Document 12/13/22 16:30 DCW (Rec: 12/13/22 17:43 DCW [id number]) Special Tests Shoulder Special Tests Yergason's Biceps Test Results Positive Right Sulcus Test Results Negative Passive ER Rotator Cuff Test Results Negative Lift-Off Rotator Cuff Test Results Negative Velazco Jason Impingement Test Results Positive Right Grind Labrum Test Results Positive Right Empty Can Test Results Negative Drop Arm Rotator Cuff Test Results Negative Clunk Test Test Results Positive Right Belly Press Test Results Negative Apprehension Test Test Results Positive Right AC Joint Compression Test Results Negative PT-OP-M Strength Start: 08/23/22 17:11 Freq: Status: Active Protocol: Document 12/13/22 16:30 DCW (Rec: 12/13/22 17:43 DCW [id number]) Shoulder Strength Shoulder Manual Muscle Testing Right Flexion 4- Good- Abduction (C5) 4- Good- External Rotation 4- Good- Internal Rotation 4+ Good+ Left Flexion 4+ Good+ Abduction (C5) 4+ Good+ External Rotation 4+ Good+ Internal Rotation 4+ Good+ PT-OP-Q Treatments Start: 08/23/22 17:11 Freq: Status: Active Protocol: Document 12/13/22 16:30 DCW (Rec: 12/13/22 17:46 DCW [id number]) Therapeutic Exercises Standing Exercises Shoulder Abduction Standing Exercise Name Shoulder Abduction Side right Resistance [place] T-band Shoulder Flexion Standing Exercise Name Shoulder Flexion Side right Resistance [place] T-band Shoulder Extension Standing Exercise Name Shoulder Extension Side bilateral Resistance [place] T-band Shoulder ER Standing Exercise Name Shoulder ER Side bilateral Resistance [place] T-band PT-OP-R Modalities Start: 08/23/22 17:11 Freq: Status: Active Protocol: Document 10/11/22 15:32 LRN (Rec: 10/11/22 16:51 LRN [id number]) Electric Stimulation Electric Stimulation Interferential Current (IFC) Body Location Mid back>Upper gluteals Duration (Minutes) 10 Intensity 26>32 Target/Sweep Sweep Patient Position Prone Combined With Heat/Cold Cold Pack Comments good feedback response It always feels good, I wonder if I can get a back stim unit for home for help with pain? PT-OP-T Assessment and Plan Start: 08/23/22 17:11 Freq: Status: Active Protocol: Document 12/13/22 16:30 DCW (Rec: 12/13/22 17:56 DCW [id number]) Physical Therapy Assessment Impairments Impairments Functional Activities, Functional Mobility,Pain, Posture,ROM,Soft Tissue Mobility,Strength Goals Five Impairment R shoulder strength Service Unit Operator Oil Well Goal (LTG) Pt to increase right shoulder MMT to at least 4+/5 in all planes in order to return to usual overhead activities without increased pain. LTG Duration 02/12/23 Four Impairment interrupted sleep Service Unit Operator Oil Well Goal (LTG) Pt will sleep at least 6 restful hours 4/7 days per week. 2.: ok as long as can get in comfortable, on average 4- 6 hrs sleep. 11/05/22: 4 hrs of uninterrupted sleep. LTG Duration 02/12/23 Two Impairment Limited shoulder ROM Service Unit Operator Oil Well Goal (LTG) Pt to increase right shoulder AROM from 101? flexion and 96? abduction to at least 130? in both planes to demonstrate improved mobility and joint mobility LTG Duration 02/12/23 One Impairment lacks HEP Short Term Goal (STG) Pt to be independent and compliant with an appropriate home exercise program STG Duration 01/13/23 Assessment Summary Assessment Pt presents with signs and symptoms consistent with potential right GH labrum derangement, which is corroborated by MRI from April,. Less likely to be adhesive capsulitis due to significantly improved PROM vs AROM, as well as positive special testing such as Apprehension, Clunk, Grind labrum, Velazco-Jason, and Yergason's Biceps tests all suggestive of labral involvement. YI of FOOSH injury common cause of potential labral dysfunction. Pt should benefit from skilled therapy focusing on improving joint mobility, increased strength and stability within available ROM, and pain- control modalities as tolerated. Should help to improve pt's pain-free ROM and return to prior level of function. Physical Therapy Plan Frequency and Duration Frequency of Treatment 2x/Week Plan of Care Start Date 12/13/22 Plan of Care End Date 07/08/23 Therapeutic Interventions Therapeutic Interventions Home Exercise Program,Joint Mobilizations,Manual Therapy, Neuromuscular Re-education, Patient/Caregiver Education, Self-Care/Home Management,Soft Tissue Mobilization,Taping, Therapeutic Activities, Therapeutic Exercises Modalities Cold Pack/Ice Massage,Electric Stimulation,Hot Packs Next Visit Focus/Plan Next Note Type Treatment Note Next Visit Plan Shoulder strengthening and stability, ROM/flexibility, STM
--- NOTE | 2022-12-13 17:59 | PT.OPPOC ---
Physical, Occupational & Speech Therapy At [facility] Current Diagnoses Other chronic pain (12/13/22) Pain in right shoulder (12/13/22) Stiffness of right shoulder, not elsewhere classified (12/13/22) Other spondylosis with myelopathy, lumbar region (12/13/22) Low back pain, unspecified (12/13/22) Segmental and somatic dysfunction of lower extremity (12/13/22) Superior glenoid labrum lesion of right shoulder, subsequent encounter (12/13/22) Visit Care Team Role Provider Type Simba Coombs DO Attending Provider Physician Family Provider Primary Care Provider Referring Provider Specialty: [facility] Address: [address] [place] [address], [facility] Email: Plan Of Care PT-OP-T Assessment and Plan Start: 08/23/22 17:11 Freq: Status: Active Protocol: Document 12/13/22 16:30 DCW (Rec: 12/13/22 17:56 DCW [id number]) Physical Therapy Assessment Impairments Impairments Functional Activities, Functional Mobility,Pain, Posture,ROM,Soft Tissue Mobility,Strength Goals Five Impairment R shoulder strength Brasswind Instrument Repairer Goal (LTG) Pt to increase right shoulder MMT to at least 4+/5 in all planes in order to return to usual overhead activities without increased pain. LTG Duration 02/12/23 Four Impairment interrupted sleep Fdc Goal (LTG) Pt will sleep at least 6 restful hours 4/7 days per week. 2: ok as long as can get in comfortable, on average 4- 6 hrs sleep. 11/05/22: 4 hrs of uninterrupted sleep. LTG Duration 02/12/23 Two Impairment Limited shoulder ROM Brasswind Instrument Repairer Goal (LTG) Pt to increase right shoulder AROM from 101? flexion and 96? abduction to at least 130? in both planes to demonstrate improved mobility and joint mobility LTG Duration 02/12/23 One Impairment lacks HEP Short Term Goal (STG) Pt to be independent and compliant with an appropriate home exercise program STG Duration 01/13/23 Assessment Summary Assessment Pt presents with signs and symptoms consistent with potential right GH labrum derangement, which is corroborated by MRI from April,. Less likely to be adhesive capsulitis due to significantly improved PROM vs AROM, as well as positive special testing such as Apprehension, Clunk, Grind labrum, Velazco-Jason, and Yergason's Biceps tests all suggestive of labral involvement. YI of FOOSH injury common cause of potential labral dysfunction. Pt should benefit from skilled therapy focusing on improving joint mobility, increased strength and stability within available ROM, and pain- control modalities as tolerated. Should help to improve pt's pain-free ROM and return to prior level of function. Physical Therapy Plan Frequency and Duration Frequency of Treatment 2x/Week Plan of Care Start Date 12/13/22 Plan of Care End Date 02/12/23 Therapeutic Interventions Therapeutic Interventions Home Exercise Program,Joint Mobilizations,Manual Therapy, Neuromuscular Re-education, Patient/Caregiver Education, Self-Care/Home Management,Soft Tissue Mobilization,Taping, Therapeutic Activities, Therapeutic Exercises Modalities Cold Pack/Ice Massage,Electric Stimulation,Hot Packs Next Visit Focus/Plan Next Note Type Treatment Note Next Visit Plan Shoulder strengthening and stability, ROM/flexibility, STM Plan of Care Dates Plan of Care Start Date 12/13/22 Plan of Care End Date 02/12/23 Electronically Signed by: Efrain Urena, PT 12/13/22 5739 If you are in agreement with this Plan of Care, please return a signed and dated copy. I have reviewed this Plan of Care and certify that the skilled therapy services above are required to meet the patient?s needs. Physician Signature Date Printed Name and Credentials Clinical Instructor Signature Printed Name and Credentials
--- NOTE | 2023-03-31 08:36 | PT-IP ANOTE ---
Pt called per phone, the number was not receiving messages. Msg left with scrum product owner of 2nd phone number listed by pt in medical records, requesting pt call back physical therapy to discuss her care. Message to be relayed to pt.
--- NOTE | 2023-04-01 13:14 | PT-OP ANOTE ---
Per phone conversation the pt states a new referral from Dr. Coombs was to be submitted to PT for treatment of plantarfaciitis. She requests discharge from therapy for her back/shoulder pain to focus on treatment to her foot. Pt will be discharged from PT for her current shoulder/back rehab program at pt request.
--- NOTE | 2023-04-12 15:13 | PT.OPDS ---
Current Diagnoses Other chronic pain (12/13/22) Pain in right shoulder (12/13/22) Stiffness of right shoulder, not elsewhere classified (12/13/22) Other spondylosis with myelopathy, lumbar region (12/13/22) Low back pain, unspecified (12/13/22) Segmental and somatic dysfunction of lower extremity (12/13/22) Superior glenoid labrum lesion of right shoulder, subsequent encounter (12/13/22) Visit Care Team Role Provider Type Simba Coombs DO Attending Provider Physician Family Provider Primary Care Provider Referring Provider Specialty: Family Practice Address: [address] [place] [address], [facility] Email: Visit Number Visit Number 07/01 Discharge Summary PT-OP-B Current Condition Start: 08/23/22 17:11 Freq: Status: Active Protocol: Document 12/13/22 16:30 DCW (Rec: 12/13/22 17:24 DCW [id number]) Current Condition History of Current Condition Onset Date ~1.5 year history Current Complaints Right shoulder pain/stiffness History of Current Condition Pt reports she tripped over a curb and fell about a year and a half ago, has difficulty remembering the specifics, but probably fell onto her outstretched hand. Pt struggles with any overhead activities, notes that her shoulder feels like it locks up when she is trying to move it. If she shakes it out, sometimes it helps, sometimes it doesn't. Admits that the thing that irritates her the most about it is that she typically sleeps on her stomach with her head turned to the left and her right arm tucked under her, but this causes pain and she can't do it any more. Prior Treatments and Tests Shoulder MRI: IMPRESSION: 1. Nondisplaced tearing of the anteroinferior labrum extending to involve the anterosuperior and superior labrum with small anterior paralabral cysts. Suspected additional small focal nondisplaced posterior labral tear. 2. Mild proximal biceps long head tendinosis. 3. Mild supraspinatus and infraspinatus tendinosis with low-grade bursal surface fraying but no significant rotator cuff tendon tear. 4. Mild acromioclavicular joint osteoarthrosis. 5. Trace subacromial/subdeltoid bursal effusion or bursitis. Per: Ryland Perez M.D. on 2021 Treatment Goals Patient/Caregiver Goals I just want to fully use my arm again. PT-OP-C Subjective Start: 08/23/22 17:11 Freq: Status: Active Protocol: Document 12/13/22 16:30 DCW (Rec: 12/13/22 17:30 DCW [id number]) OP-PT Subjective Patient Comments Patient Comments Pt concerned that her shoulder doesn't seem to have improved since she originally fell more than a year ago. PT-OP-E Functional Tests Start: 11/05/22 17:52 Freq: Status: Active Protocol: Document 12/13/22 16:30 DCW (Rec: 12/13/22 17:38 DCW [id number]) Functional Tests Apley's Scratch Test Action 1- Left Posterior opposite shoulder Action 1- Right Anterior opposite shoulder Action 2- Left T3 Action 2- Right C7 Action 3- Left T6 Action 3- Right L3 PT-OP-F Manual Assessment Start: 08/23/22 17:11 Freq: Status: Active Protocol: Document 12/13/22 16:30 DCW (Rec: 12/13/22 17:37 DCW [id number]) Manual Assessments Joint Mobility Assessment Joint Mobility Assessment Apprehension with overhead passive movement, notes regularly feeling of general joint instability. PT-OP-J Posture/Palpation/Skin Start: 08/23/22 17:11 Freq: Status: Active Protocol: Document 12/13/22 16:30 DCW (Rec: 12/13/22 17:37 DCW [id number]) Posture Evaluation Position Standing Shoulder Posture (R) Rounded,(R) Forward Comments Posture Comments Protected shoulder posturing PT-OP-K Range of Motion Start: 08/23/22 17:11 Freq: Status: Active Protocol: Document 12/13/22 16:30 DCW (Rec: 12/13/22 17:37 DCW [id number]) Shoulder Goniometric Range of Motion Shoulder Right Passive Testing Position Supine Flexion 123 Abduction 116 External Rotation at 0 degrees Abduction 45 Right Active Testing Position Sitting Flexion 101 Abduction 96 External Rotation at 0 degrees Abduction 37 Internal Rotation Behind Back (text) L3 Left Active Shoulder ROM WFL Yes Testing Position Sitting Flexion 180 Extension 180 External Rotation at 0 degrees Abduction 48 Internal Rotation Behind Back (text) T6 PT-OP-L Special Tests Start: 08/23/22 17:11 Freq: Status: Active Protocol: Document 12/13/22 16:30 DCW (Rec: 12/13/22 17:43 DCW [id number]) Special Tests Shoulder Special Tests Yergason's Biceps Test Results Positive Right Sulcus Test Results Negative Passive ER Rotator Cuff Test Results Negative Lift-Off Rotator Cuff Test Results Negative Velazco Jason Impingement Test Results Positive Right Grind Labrum Test Results Positive Right Empty Can Test Results Negative Drop Arm Rotator Cuff Test Results Negative Clunk Test Test Results Positive Right Belly Press Test Results Negative Apprehension Test Test Results Positive Right AC Joint Compression Test Results Negative PT-OP-M Strength Start: 08/23/22 17:11 Freq: Status: Active Protocol: Document 12/13/22 16:30 DCW (Rec: 12/13/22 17:43 DCW [id number]) Shoulder Strength Shoulder Manual Muscle Testing Right Flexion 4- Good- Abduction (C5) 4- Good- External Rotation 4- Good- Internal Rotation 4+ Good+ Left Flexion 4+ Good+ Abduction (C5) 4+ Good+ External Rotation 4+ Good+ Internal Rotation 4+ Good+ PT-OP-T Assessment and Plan Start: 08/23/22 17:11 Freq: Status: Active Protocol: Document 04/12/23 08:50 LRN (Rec: 04/12/23 15:11 LRN [id number]) Physical Therapy Assessment Goals Five Impairment R shoulder strength Assisted Goal (LTG) Pt to increase right shoulder MMT to at least 4+/5 in all planes in order to return to usual overhead activities without increased pain. LTG Duration 02/12/23 Four Impairment interrupted sleep Assisted Goal (LTG) Pt will sleep at least 6 restful hours 4/7 days per week. 09.28.22: ok as long as can get in comfortable, on average 4- 6 hrs sleep. 11/05/22: 4 hrs of uninterrupted sleep. LTG Duration 02/12/23 Three Impairment standing tolerance is limited Short Term Goal (STG) Pt will tolerate standing for 10 minutes with 4/10 or less pain so that she can wash dishes standing at her sink 09/28/22: not being able to stand doing dishes up to 5 min before increased pain has to stop. 11/05/22: Stands for 10 minutes before onset of LBP that radiates up (midback) and down to hamstrings, rated 7/ 10. STG Duration 12/20/22 progress, limited by LBP 11/05/22 Assisted Goal (LTG) Pt will tolerate being on her feet at least one hour with 3/ 10 or less pain to improve her ability to engage with work responsibilities 09/28/22: pt if wt shifing can tolerate 30 min. IF stationary doesn't longer 5 min. 11/05/22: Stands for 10 minutes before onset of LBP that radiates up (midback) and down to hamstrings, rated 7/ 10. LTG Duration 02/03/23 slow progression due to pain. 09/28/22 Two Impairment Limited shoulder ROM Follow Up Specialist Goal (LTG) Pt to increase right shoulder AROM from 101? flexion and 96? abduction to at least 130? in both planes to demonstrate improved mobility and joint mobility LTG Duration 02/12/23 One Impairment lacks HEP Short Term Goal (STG) Pt to be independent and compliant with an appropriate home exercise program STG Duration 01/13/23 Assessment Summary Assessment The pt was seen for an eval and 10 treatment visits. She was last seen 12/13/22 for a recheck by Homer Urena PT and found with signs and symptoms consistent with potential right GH labrum derangement. The pt has decided to discharge from PT in order to start physical therapy for foot pain; therefore the pt is being discharged from therapy at pt request, and is expected to return with a new referral for foot pain. Pt goals were not met. Physical Therapy Plan Discharge Physical Therapy Discharge Reasons Patient Request Discharge Comments Testing for possible R labral derangement would be appropriate. Pt wanting to discharge for starting of rehab for her foot. Thank you for your referral.
== END 2023-04-15 13:30 | disposition home or self-care (01) ==
LOC: PHYS 16:30
PROVIDERS: Family Provider Family Medicine; PCP Family Medicine; Referring Provider Family Medicine; Visit Provider Family Medicine
DX: M54.50 Low back pain, unspecified (principal); M47.16 Other spondylosis with myelopathy, lumbar region; M99.06 Segmental and somatic dysfunction of lower extremity; M25.511 Pain in right shoulder; G89.29 Other chronic pain; M25.611 Stiffness of right shoulder, not elsewhere classified
CPT/HCPCS: 97014; 97110; 97140; 97161; 97535; G0283

== ENCOUNTER → 2023-08-17 13:40 | Outpatient (CLI) | payer OTHER, MEDICAID, SELFPAY ==
[2023-08-17 19:33] LABS: Influenza A - CEPHEID Flu A NEGATIVE (NEGATIVE); Influenza B - CEPHEID Flu B NEGATIVE (NEGATIVE); Respiratory Syncytial Virus POSITIVE (Negative)
[2023-08-17 19:47] LABS: COVID-19 CEPHEID 4-PLEX PCR Negative (Negative)
== END ==
PROVIDERS: Family Provider Family Medicine; PCP Family Medicine; Visit Provider Physician Assistant
DX: R05.1 Acute cough (principal)
CPT/HCPCS: 0241U

== ENCOUNTER → 2023-08-17 13:52 | Outpatient (CLI) | payer OTHER, MEDICAID, SELFPAY ==
--- NOTE | 2023-08-17 13:53 | DI.RAD.S_ITS ---
PROCEDURE: XR CHEST 2V INDICATIONS: cough x 2 weeks TECHNIQUE: 2 views of the chest were acquired. COMPARISON: [facility], CR, XR CHEST 2V, 09/27/2022, 12:48. [facility], CR, XR CHEST 1V, 09/09/2021, 15:46. FINDINGS: Surgical changes and devices: None. Lungs and pleura: Lungs are clear. No pleural effusions or pneumothorax. Peribronchial cuffing. Mediastinum: Mediastinal contours are normal. Heart size is normal. Bones and chest wall: No suspicious bony abnormalities. Soft tissues appear unremarkable. IMPRESSION: Peribronchial cuffing, typically indicating infectious or inflammatory bronchitis. Dictated by: Mj Juarez M.D. on 08/17/2023 at 16:22 Approved by: Mj Juarez M.D. on 08/17/2023 at 16:22
== END ==
LOC: RAD 13:53
PROVIDERS: Family Provider Family Medicine; PCP Family Medicine; Referring Provider Physician Assistant; Visit Provider Physician Assistant
DX: J06.9 Acute upper respiratory infection, unspecified (principal); R05.1 Acute cough
CPT/HCPCS: 0241U; 71046

== ENCOUNTER 2023-09-26 15:06 | Emergency (ER) | payer OTHER, MEDICAID, SELFPAY ==
[2023-09-26 15:11] VITALS: BP 127/83; PULSE 67; RESP 18; TEMP 36.3; O2SAT 96; BMI 39.1
--- NOTE | 2023-09-26 16:12 | ED_ITS ---
HPI - Back Pain/Injury <Pavan Uriostegui PA-C - Last Filed: 09/26/23 18:08> General Chief Complaint: Back Pain/Injury Stated Complaint: severe back pain, no known injury Time Seen by Provider: 09/26/23 15:50 History of Present Illness HPI Narrative: 38-year-old female with chronic low back pain presents to the ED with an acute on chronic exacerbation of the lower back pain. Patient states that she heard a cracking noise when she stepped the certain way 3 days ago. Since then, patient has been experiencing an exacerbation of the low back pain. Pain radiates down bilateral legs. There is some tingling. No numbness, weakness. No urinary symptoms including urinary hesitancy, dysuria, urinary incontinence. No bowel incontinence. Related Data Home Medications Medication Instructions Recorded Confirmed rimegepant 75 mg disintegrating 75 mg PO DAILY PRN Migraine 11/18/22 09/23/23 tablet (Nurtec ODT) Headache Previous Rx's Medication Instructions Recorded budesonide-formoterol HFA 160 2 puff inhalation Q12H #10.2 grams 07/21/22 mcg-4.5 mcg/actuation aerosol inhaler (Symbicort) famotidine 20 mg tablet 20 mg PO BID PRN heartburn #60 tabs 09/16/22 albuterol sulfate 90 mcg/actuation 2 inh inhalation Q4H PRN shortness 09/27/22 breath activated powder inhaler of breath or wheezing #1 ea tens unit #1 ea 10/05/22 ondansetron 4 mg disintegrating 4 mg PO TID-QID PRN nausea and 05/04/23 tablet vomiting #10 tabs montelukast 10 mg tablet 10 mg PO DAILY #90 tabs 08/03/23 phenylephrine HCl 10 mg tablet 10 mg PO Q4-6H PRN for congestion 09/07/23 #36 tabs carisoprodol 350 mg tablet 350 mg PO TID PRN muscle pain #30 09/23/23 tabs hydroxyzine HCl 25 mg tablet 25 mg PO QID PRN anxiety 5 days 09/26/23 #20 tabs Allergies Allergy/AdvReac Type Severity Reaction Status Date / Time sulfamethoxazole Allergy Verified 09/23/23 15:01 [From ] trimethoprim [From ] Allergy Verified 09/23/23 15:01 azithromycin AdvReac Mild itchy Verified 09/23/23 15:01 hands/feet Review of Systems <Pavan Uriostegui PA-C - Last Filed: 09/26/23 18:08> Constitutional Constitutional: Denies chills, Denies fatigue, Denies fever(s), Denies frequent falls, Denies lethargy and Denies weakness Eyes Eyes: Denies change in vision, Denies eye discharge, Denies irritation and Denies loss of vision ENT Ears, Nose, Mouth, and Throat: Denies change in voice, Denies dizziness, Denies neck pain, Denies sore throat and Denies throat swelling Cardiovascular Cardiovascular: Denies chest pain, Denies irregular heart rhythm, Denies lightheadedness, Denies palpitations, Denies dyspnea, Denies dyspnea on exertion and Denies orthopnea Respiratory Respiratory: Denies cough, Denies dyspnea, Denies dyspnea on exertion and Denies wheezing Gastrointestinal Gastrointestinal: Denies abdominal pain, Denies change in bowel habits, Denies diarrhea, Denies nausea and Denies vomiting Musculoskeletal Musculoskeletal: Reports back pain, Denies neck pain, Denies numbness and Reports radiating pain into limb Integumentary/Breasts Skin/Breast: Denies pruritus, Denies erythema, Denies rash and Denies wounds Neurologic Neurologic: Denies behavioral changes, Denies confusion, Denies dizziness, Denies frequent falls, Denies loss of vision, Denies numbness and Denies weakness Psychiatric Psychiatric: Reports anxiety, Denies behavioral changes, Denies confusion, Denies depression, Denies homicidal ideation and Denies suicidal ideation Endocrine Endocrine: Denies fatigue, Denies flushing and Denies palpitations Hematologic/Lymphatic Hematologic/Lymphatic: Denies easy bruising Allergic/Immunologic Allergic/Immunologic: Denies urticaria, Denies throat swelling and Denies wheezing Patient History <Pavan Uriostegui PA-C - Last Filed: 09/26/23 18:08> Medical History Acute bilateral back pain Segmental and somatic dysfunction of abdomen and other regions Left foot pain Chronic low back pain without sciatica Edema of right forearm Upper extremity somatic dysfunction Pain in right forearm Rosacea Traumatic ecchymosis of toe of right foot Acute sinus infection Chronic neck pain Chronic thoracic back pain Chronic lumbar pain Spondylosis, lumbar, with myelopathy Morbid obesity Asthma Complete proximal hamstring tendon rupture Nausea Episodic lightheadedness Somatic dysfunction of lower extremity Chronic right shoulder pain Acute pain of right lower extremity Family history of breast cancer in mother Sacral region somatic dysfunction Pelvic somatic dysfunction Lumbar region somatic dysfunction Thoracic region somatic dysfunction Dietary counseling Change in stool habits Abdominal bloating Abnormal weight gain External hemorrhoids Depression Anxiety BMI 39.0-39.9,adult Allergies Torn ACL Migraines Surgical History Hines teeth extracted History of placement of ear tubes History of tonsillectomy History of repair of ACL (03/19/19) Social History household members: significant other and family Smoking Status: Never smoker alcohol intake: current Smoking Status: Never smoker alcohol intake frequency: holidays/special occasions only Substance Use Type: does not use Exam <Pavan Uriostegui PA-C - Last Filed: 09/26/23 18:08> Narrative Exam Narrative: Const General:?cooperative, healthy appearing and comfortable [facility] Head:?normal to inspection Ears:?hearing grossly normal bilaterally Nose:?external nose normal Face and sinus:?normal facial exam and sinuses nontender Mouth:?oral mucosae normal Throat:?posterior oropharynx normal Eyes General:?appearance normal, both eyes and all related structures Neck Neck:?normal visual inspection and no lymphadenopathy noted Resp Effort & Inspection:?normal respiratory effort Auscultation:?clear to auscultation bilaterally Cardio Rate:?regular rate Rhythm:?regular rhythm Musculoskeletal No midline tenderness to palpation. No paraspinal tenderness to palpation. Strength and sensation intact. There is full range of motion. Patient is neurovascularly intact. Neuro General:?patient alert, patient awake and patient oriented x3 Initial Vital Signs Initial Vital Signs: Vital Signs Temperature 97.3 F L 09/26/23 15:11 Pulse Rate 67 09/26/23 15:11 Respiratory Rate 18 09/26/23 15:11 Blood Pressure 127/83 09/26/23 15:11 Pulse Oximetry 96 09/26/23 15:11 Oxygen Delivery Method Room Air 09/26/23 15:11 <Myra Dominique DO - Last Filed: 09/27/23 07:27> Initial Vital Signs Initial Vital Signs: Vital Signs Temperature 97.3 F L 02/19/24 15:11 Pulse Rate 67 09/26/23 15:11 Respiratory Rate 18 09/26/23 15:11 Blood Pressure 127/83 09/26/23 15:11 Pulse Oximetry 96 09/26/23 15:11 Oxygen Delivery Method Room Air 09/26/23 15:11 Course <Pavan Uriostegui PA-C - Last Filed: 09/26/23 18:08> Orders Ordered: Discontinued Medications Ketorolac Tromethamine (Ketorolac 30 Mg/Ml Vial) 30 mg IM NOW ONE Stop: 09/26/23 16:08 Last Admin: 09/26/23 16:15 Dose: 30 mg Documented By: RB Lorazepam (Lorazepam 0.5 Mg Tablet) 1 mg PO NOW ONE Stop: 09/26/23 16:49 Last Admin: 09/26/23 17:04 Dose: 1 mg Documented By: RB Ondansetron HCl (Ondansetron 4 Mg Odt) 4 mg SL NOW ONE Stop: 09/26/23 16:07 Last Admin: 09/26/23 16:15 Dose: 4 mg Documented By: RB Oxycodone/Acetaminophen (Oxycodone/Acetaminophen 5/325 Tablet) 1 tab PO NOW ONE Stop: 09/26/23 16:52 Last Admin: 09/26/23 16:58 Dose: 1 tab Documented By: RB Vital Signs Vital signs: Vital Signs - 8 hr 09/26/23 15:11 09/26/23 17:45 Temperature 97.3 F L 98.2 F Pulse Rate 67 74 Respiratory Rate 18 18 Blood Pressure 127/83 136/69 Pulse Oximetry 96 96 Oxygen Delivery Method Room Air Room Air <Myra Dominique DO - Last Filed: 09/27/23 07:27> Orders Ordered: Discontinued Medications Ketorolac Tromethamine (Ketorolac 30 Mg/Ml Vial) 30 mg IM NOW ONE Stop: 09/26/23 16:08 Last Admin: 09/26/23 16:15 Dose: 30 mg Documented By: RB Lorazepam (Lorazepam 0.5 Mg Tablet) 1 mg PO NOW ONE Stop: 09/26/23 16:49 Last Admin: 09/26/23 17:04 Dose: 1 mg Documented By: RB Ondansetron HCl (Ondansetron 4 Mg Odt) 4 mg SL NOW ONE Stop: 09/26/23 16:07 Last Admin: 09/26/23 16:15 Dose: 4 mg Documented By: MARY Oxycodone/Acetaminophen (Oxycodone/Acetaminophen 5/325 Tablet) 1 tab PO NOW ONE Stop: 09/26/23 16:52 Last Admin: 09/26/23 16:58 Dose: 1 tab Documented By: RB Vital Signs Vital signs: Vital Signs - 8 hr 09/26/23 15:11 09/26/23 17:45 Temperature 97.3 F L 98.2 F Pulse Rate 67 74 Respiratory Rate 18 18 Blood Pressure 127/83 136/69 Pulse Oximetry 96 96 Oxygen Delivery Method Room Air Room Air MDM - Back Pain/Injury <Pavan Uriostegui PA-C - Last Filed: 09/26/23 18:08> MDM Narrative Medical decision making narrative: 38-year-old female with chronic low back pain presents to the ED with an acute on chronic exacerbation of the lower back pain. Concern for fracture/dislocation versus musculoskeletal sprain/strain versus disc etiology versus other. Obtained CT lumbar spine which shows no acute findings. Patient's presentation does include a component of anxiety that is worsening the pain. Patient's symptoms improved with Zofran, ketorolac, Ativan, Percocet. Prescribed hydroxyzine to address the anxiety and pain. Patient agrees to take Tylenol, ibuprofen, lidocaine patches for pain control. Patient has a appointment with PCP Dr. Coombs later this week as a follow-up. ED return precautions were discussed with patient. Patient verbalized understanding. Medical records reviewed: Yes Discharge Plan Departure Patient Disposition: Home Clinical Impression: Low back pain Qualifiers: Chronicity: acute Back pain laterality: unspecified Sciatica presence: with sciatica Sciatica laterality: bilateral sciatica Qualified Code(s): M54.42 - Lumbago with sciatica, left side Instructions: DI for Low Back Pain Activity Restrictions/Additional Instructions: You were evaluated in the ED today for low back pain. Your CT scan did not show any fractures or dislocations. Your low back pain is likely due to a musculoskeletal sprain/strain or due to a disc injury. You were given some Ativan in the ED for anxiety related to the back pain which was very helpful in controlling pain. You are being prescribed some hydroxyzine to take at home for the anxiety. You may also take 800 mg of ibuprofen and 1000 mg of Tylenol every 8 hours with food for pain. Please keep your appointment with your PCP Dr. Coombs as scheduled for later this week. Return to the ED if you have worsening symptoms, numbness, tingling, weakness, urinary difficulties. Prescriptions: New hydroxyzine HCl 25 mg tablet 25 mg PO QID PRN (Reason: anxiety) 5 Days Qty: 20 0RF No Action famotidine 20 mg tablet 20 mg PO BID PRN (Reason: heartburn) Qty: 60 5RF ondansetron 4 mg tablet,disintegrating 4 mg PO TID-QID PRN (Reason: nausea and vomiting) Qty: 10 0RF montelukast 10 mg tablet 10 mg PO DAILY Qty: 90 3RF phenylephrine HCl 10 mg tablet 10 mg PO Q4-6H PRN (Reason: for congestion) Qty: 36 3RF budesonide-formoterol [Symbicort] 160-4.5 mcg/actuation HFA aerosol inhaler 2 puff inhalation Q12H Qty: 10.2 11RF (DME) tens unit See Rx Instructions .Route .MEDSUPPLY Qty: 1 0RF Rx Instructions: As directed carisoprodol 350 mg tablet 350 mg PO TID PRN (Reason: muscle pain) Qty: 30 0RF Nurtec ODT 75 mg tablet,disintegrating 75 mg PO DAILY PRN (Reason: Migraine Headache) Patient Comments: DISSOLVE ONE TABLET IN MOUTH ONCE DAILY NEEDED albuterol sulfate 90 mcg/actuation aerosol powdr breath activated 2 inh INHALATION Q4H PRN (Reason: shortness of breath or wheezing) Qty: 1 0RF Rx Instructions: administer with spacer Referrals: Simba Coombs DO [Primary Care Provider] - Stand Alone Forms: Patient Portal/API ED Sign-out <Myra Dominique DO - Last Filed: 09/27/23 07:27> Cosign ED Attending Cosignature Attestation: I was immediately available in the department for consultation.
[2023-09-26] MEDS: KETOROLAC 30 MG/ML VIAL IM (16:15)
[2023-09-26] MEDS: ONDANSETRON 4 MG ODT SL (16:15)
--- NOTE | 2023-09-26 16:50 | DI.CT.S_ITS ---
PROCEDURE: CT LUMBAR SPINE WO CON INDICATIONS: low back pain TECHNIQUE: Noncontrast 3 mm thick sections acquired from the T12 level to the sacrum. Sagittal and coronal reformats were constructed. For radiation dose reduction, the following was used: automated exposure control. COMPARISON: [facility], CR, XR LUMBAR SPINE 2-3V, 07/21/2022, 15:25. FINDINGS: Image quality: Excellent. Bones: Straightening of the normal lumbar lordosis. No acute vertebral body compression fractures. No suspicious lytic or blastic bony lesions. Minimal degenerative endplate changes and spurring. No pars defects. No osseous neural foraminal or central canal stenosis. Soft tissues: No retroperitoneal masses or hematomas. Visualized aorta is normal in caliber. Intrauterine device in place. IMPRESSION: No acute osseous abnormalities. Minimal degenerative changes. Dictated by: Killian Cannon M.D. on 09/26/2023 at 17:45 Approved by: Killian Cannon M.D. on 09/26/2023 at 17:47
[2023-09-26] MEDS: OXYCODONE/ACETAMINOPHEN 5/325 TABLET 1 TAB PO (16:58)
[2023-09-26] MEDS: LORazepam 0.5 MG TABLET 1 MG PO (17:04)
[2023-09-26 17:45] VITALS: BP 136/69; PULSE 74; RESP 18; TEMP 36.8; O2SAT 96
== END 2023-09-26 18:17 | disposition home or self-care (01) ==
PROVIDERS: Emergency Provider Student in an Organized Health Care Education/Training Program; Family Provider Family Medicine; PCP Family Medicine
DX: M54.42 Lumbago with sciatica, left side (principal)
CPT/HCPCS: 72131; 96372; 99283; J1885

== ENCOUNTER → 2023-10-13 17:38 | Outpatient (CLI) | payer OTHER, MEDICAID, SELFPAY ==
--- NOTE | 2023-10-13 | DI.MG.S_ITS ---
BILATERAL DIGITAL SCREENING MAMMOGRAM 3D/2D WITH CAD: 10/13/2023 CLINICAL: Routine screening. Family history of breast cancer. Comparison is made to exams dated: 12/22/2021 mammogram, 03/22/2020 mammogram, and 11/08/2018 mammogram - [facility]. There are scattered areas of fibroglandular density in both breasts (category b / 25%-50% glandular tissue). Current study was also evaluated with a Computer Aided Detection (CAD) system. No significant masses, calcifications, or other findings are seen in either breast. There has been no significant interval change. IMPRESSION: NEGATIVE There is no mammographic evidence of malignancy. A 1 year screening mammogram is recommended. Based on Tyrer-Cuzick model (a risk assessment model), the patient's lifetime risk is 29.0% and her 10 year risk is 3.3%. If a patient has an elevated risk, a more comprehensive evaluation should be considered and/or a referral to a genetic counselor. The [employer], [employer], and NCCN Guidelines advise the consideration of Breast MRI as an adjunct to screening mammography in patients whose Lifetime risk to develop breast cancer is 20% or higher. This exam was interpreted at Station ID: [id number]. NOTE: For mammograms, a report in lay terms will be sent to the patient. Approximately 15% of breast malignancies will not be visualized mammographically. In the management of a palpable breast mass, a negative mammogram must not discourage biopsy of a clinically suspicious lesion. Electronically Signed By: Shavonne Randolph M.D., PH.D eb/penrad:10/14/2023 09:34:53 letter sent: Normal Exam ACR BI-RADS Category 1: Negative [id number]
== END ==
LOC: MAMMO 17:38
PROVIDERS: Family Provider Family Medicine; PCP Family Medicine; Referring Provider Family Medicine; Visit Provider Family Medicine
DX: Z12.31 Encounter for screening mammogram for malignant neoplasm of breast (principal); Z80.3 Family history of malignant neoplasm of breast; R92.323 Mammographic fibroglandular density, bilateral breasts
CPT/HCPCS: 77063; 77067

== ENCOUNTER → 2023-10-27 15:28 | Outpatient (CLI) | payer OTHER, MEDICAID, SELFPAY ==
--- NOTE | 2023-10-27 | DI.CT.S_ITS ---
PROCEDURE: CT HEAD/BRAIN WO/W CON INDICATIONS: Migraine with aura, intractable TECHNIQUE: 4.5 mm thick angled axial sections acquired from the foramen magnum to the vertex before and after the administration of intravenous contrast, with coronal and sagittal reformats. For radiation dose reduction, the following was used: automated exposure control, adjustment of mA and/or kV according to patient size. COMPARISON: None. FINDINGS: Image quality: Excellent. CSF Spaces: Basal cisterns are patent. No extra-axial fluid collections. Ventricles are normal in size and shape. Brain: No midline shift. No intracranial bleeds or masses. No abnormal intracranial enhancement. Velazquez-white interface appears normal. Skull and face: Calvarium and visualized facial bones appear intact, without suspicious lesions. Sinuses: Visualized sinuses and mastoids are clear. IMPRESSION: No cause for patient's symptoms is identified. No acute intracranial abnormalities. No abnormal intracranial enhancement. Dictated by: Killian Cannon M.D. on 10/27/2023 at 16:57 Approved by: Killian Cannon M.D. on 10/27/2023 at 16:58
== END ==
PROVIDERS: Family Provider Family Medicine; PCP Family Medicine; Referring Provider Neuromusculoskeletal Medicine, Sports Medicine; Visit Provider Neuromusculoskeletal Medicine, Sports Medicine
DX: G43.119 Migraine with aura, intractable, without status migrainosus (principal)
CPT/HCPCS: 70470; Q9967

== ENCOUNTER → 2024-02-06 13:53 | Outpatient (CLI) | payer OTHER, MEDICAID, SELFPAY ==
--- NOTE | 2024-02-06 13:54 | DI.MRI.S_ITS ---
PROCEDURE: MR LUMBAR SPINE WO CON INDICATIONS: Spinal stenosis, lumbar region w neurogenic john TECHNIQUE: Noncontrast sagittal T1 spin echo and T2 fast echo, sagittal STIR, and T2 fast spin echo through the lumbar spine. In cases with scoliosis, additional coronal T2 fast spin echo may be performed. COMPARISON: [facility], CR, XR LUMBAR SPINE WITH OBLIQUES PLUS FLEXION EXTENSION, 01/09/2024, 16:09. [facility], CT, CT LUMBAR SPINE WO CON, 09/26/2023, 17:22. FINDINGS: Image quality: Excellent. Alignment and Curvature: Mild levocurvature of the lumbar spine, centered at L4. Straightening of the lumbar spine. Bone Marrow: Marrow is of normal overall signal. No acute vertebral body compression fractures. Spinal Cord: Conus medullaris terminates at the T12-L1 level. Visualized cord demonstrates normal signal and size. Paraspinous Soft Tissues: No paravertebral masses. T12-L1: Mild bilateral facet arthropathy. No stenosis. L1-2: Mild bilateral facet arthropathy. No stenosis. L2-L3: Mild disc bulge. No central canal stenosis. No neural foraminal stenosis. L3-L4: Mild bilateral facet arthropathy, right greater than left. No central canal stenosis. No neural foraminal stenosis. L4-L5: Moderate bilateral facet arthropathy. No stenosis. L5-S1: Mild right facet arthropathy. No stenosis. Sacrum: Mild subchondral marrow edema of the left sacral alae, about the left inferior sacroiliac joint (series 6, image 16), incompletely evaluated. The visualized sacrum is intact. Soft tissue findings: No abdominal aortic aneurysm. IMPRESSION: 1. Multilevel degenerative change of the lumbar spine, without central canal or neural from stenosis. 2. Mild subchondral marrow edema of the left sacral alae, about the left inferior sacroiliac joint, incompletely evaluated and may be degenerative. The visualized sacrum is intact. Dictated by: Sachi Conley M.D. on 02/06/2024 at 20:03 Approved by: Sachi Conley M.D. on 02/06/2024 at 20:11
== END ==
LOC: MRI 13:54
PROVIDERS: Family Provider Family Medicine; PCP Family Medicine; Referring Provider Physical Medicine & Rehabilitation Pain Medicine; Visit Provider Physical Medicine & Rehabilitation Pain Medicine
DX: M48.062 Spinal stenosis, lumbar region with neurogenic claudication (principal); M47.816 Spondylosis without myelopathy or radiculopathy, lumbar region; M47.817 Spondylosis without myelopathy or radiculopathy, lumbosacral region
CPT/HCPCS: 72148

== ENCOUNTER → 2024-03-08 10:56 | Outpatient (CLI) | payer OTHER, MEDICAID, SELFPAY | LOC: PHYS 10:57 | PROVIDERS: Family Provider Family Medicine; PCP Family Medicine; Referring Provider Family Medicine; Visit Provider Family Medicine | DX: R20.2 Paresthesia of skin (principal); M54.2 Cervicalgia; G89.29 Other chronic pain; M25.511 Pain in right shoulder | CPT/HCPCS: 95886; 95910 ==

== ENCOUNTER → 2024-05-01 08:04 | Outpatient (CLI) | payer OTHER, MEDICAID, SELFPAY | PROVIDERS: Family Provider Family Medicine; PCP Family Medicine; Visit Provider Physician Assistant Medical | DX: J02.9 Acute pharyngitis, unspecified (principal); R05.1 Acute cough | CPT/HCPCS: 87635; 87400 ×2; 87420; 0241U; 87070 ==

== ENCOUNTER → 2024-07-16 10:17 | Outpatient (CLI) | payer OTHER, SELFPAY ==
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
== END ==
LOC: RAD 10:25
PROVIDERS: Family Provider Family Medicine; PCP Family Medicine; Referring Provider Nurse Practitioner Family; Visit Provider Nurse Practitioner Family
DX: S20.229A Contusion of unspecified back wall of thorax, initial encounter (principal); X58.XXXA Exposure to other specified factors, initial encounter
CPT/HCPCS: 72072

== ENCOUNTER → 2025-06-09 11:47 | Outpatient (CLI) | payer OTHER, SELFPAY ==
--- NOTE | 2025-06-09 11:49 | DI.MRI.S_ITS ---
PROCEDURE: MR KNEE RT WO CON INDICATIONS: Old complete tear of anterior cruciate ligament, TECHNIQUE: Noncontrast sagittal PD fast spin echo and T2 fast spin echo with fat saturation, sagittal 3-D FLASH with fat saturation; coronal T1 spin echo and PD fast spin echo with fat saturation, and axial PD fast spin echo with fat saturation through the knee. COMPARISON: [facility], CR, XR KNEE ARTHRITIC SERIES RT, 06/03/2025, 7:47. [facility], CR, XR KNEE 4+ VIEWS BILATERAL, 09/12/2024, 15:55. [facility], MR, MR KNEE LT WO CON, 01/06/2021, 17:39. FINDINGS: Image quality: Excellent. Menisci: The medial and lateral menisci demonstrate normal morphology and internal signal. The meniscal root ligaments appear intact. Cruciate ligaments: There is prior ACL reconstruction. ACL graft is mildly thickened with intrasubstance T2 hyperintense signal in its midportion. The posterior cruciate ligament is intact. Medial structures: The medial collateral ligament appears intact. Visualized portions of the pes anserinus tendons appear normal. No abnormal bursal fluid. Lateral structures: The lateral collateral ligament is mildly thickened at its femoral insertion. The long and short heads of the biceps femoris tendon appear intact. The popliteus tendon appears intact. A Iliotibial band appears normal. Anterior structures: The quadriceps and patellar tendons appear intact. Patellar alignment is normal. Bones and cartilage: There is no abnormal anterior tibial translation. No signal abnormality is seen within the femoral tunnel or tibial tunnel. No marrow edema. No acute fracture or dislocation. Articulating cartilages in medial and lateral femoral tibial compartments as well as patellofemoral compartment is normal in thickness. Joint space: There is small to moderate knee joint fluid. No Galeas's cyst. Normal appearing synovial plicae are incidentally noted. IMPRESSION: 1. Prior ACL reconstruction. Suggestion of sprain/low-grade intrasubstance partial-thickness tear involving ACL graft. No ACL graft rupture. The PCL is intact. 2. No evidence of focal meniscal tear. 3. Low-grade proximal LCL sprain/partial-thickness tear. 4. No marrow edema. No fracture or dislocation. No abnormal anterior tibial translation. Articulating cartilages normal in thickness. Small to moderate joint effusion, no loose bodies. Dictated by: Jas Giang M.D. on 06/10/2025 at 9:17 Approved by: Jas Giang M.D. on 06/10/2025 at 9:23
== END ==
PROVIDERS: Family Provider Family Medicine; PCP Family Medicine; Referring Provider Orthopaedic Surgery; Visit Provider Orthopaedic Surgery
DX: S83.421A Sprain of lateral collateral ligament of right knee, initial encounter (principal); M23.51 Chronic instability of knee, right knee; M25.461 Effusion, right knee
CPT/HCPCS: 73721